=== PATIENT | female | born 1980 | race Caucasian/White ===

== ENCOUNTER 2019-08-23 15:13 | Emergency (ER) | payer BC, MEDICAID, SELFPAY ==
--- NOTE | ~2019-08-23 | XR_ITS ---
EXAMINATION: XR chest 2V DATE: 08/23/2019 15:51 INDICATION: Congestion. Anxiety. TECHNIQUE: Frontal and lateral views of the chest were obtained. COMPARISON: None. FINDINGS: The chest demonstrates clear lungs without pneumonia, pleural effusion, or pneumothorax. Th e heart size is normal. Surgical clips in the right upper quadrant are likely from cholecystectomy. IMPRESSION: 1. No acute cardiopulmonary disease. Reviewed, dictated and finalized at location A.
[2019-08-23 15:37] VITALS: BP 169/102; PULSE 95; RESP 16; TEMP 36.4; O2SAT 95
--- NOTE | 2019-08-23 16:07 | ED.ASTHMA ---
HPI - Asthma General Chief Complaint: Upper Respiratory Infection Stated Complaint: SOB Source: patient and family History of Present Illness HPI Narrative: patient presents with mild shortness of breath with no audible wheezing there is no cough there is some sinus congestion and drainage, with no fever chills does have a history of asthma that is well controlled with no acute exacerbations. complaint: shortness of breath Onset (ago): day(s) Severity: mild Context: none known Associated symptoms: none Treatments Prior to Arrival: inhaled bronchodilator Related Data Home Medications Medication Instructions Recorded Confirmed levothyroxine 50 mcg PO DAILY 08/23/19 08/23/19 Allergies Allergy/AdvReac Type Severity Reaction Status Date / Time No Known Allergies Allergy Unverified 09/09/11 11:08 Review of Systems Review of Systems: All systems reviewed & are unremarkable except as noted in HPI and below PMFSH Past Medical History Medical History Asthma Family History Family History Other Diabetes mellitus Hypertension Social History Social History Smoking end date: 05/30/00 Alcohol intake: never Exam Const: General: no acute distress and alert Orientation/consciousness: patient oriented x3 HENMT: Head: normal to inspection Eyes: Conjunctivae: conjunctivae normal Pupils: Equal, round and reactive pupils present Neck: Neck: normal visual inspection Chest: Chest palpation & inspection: normal inspection of the chest Resp: Effort & Inspection: normal respiratory effort Auscultation: clear to auscultation bilaterally Cardio: Rate: regular rate Rhythm: regular rhythm GI: Auscultation: normal bowel sounds : General: Yes no CVA tenderness Skin: General skin exam: normal color Lesions: no lesions Neuro: General: patient oriented x3 Extrem: General: normal to inspection Psych: Mental Status: mental status grossly normal Course Vital Signs Vital signs: Vital Signs Temperature 36.4 C 08/23/19 15:37 Pulse Rate 95 08/23/19 15:37 Respiratory Rate 16 08/23/19 15:37 Blood Pressure 169/102 H 08/23/19 15:37 Pulse Oximetry 95 08/23/19 15:37 Temperature 36.4 C 03/26/20 15:37 Pulse Rate 95 08/23/19 15:37 Respiratory Rate 16 08/23/19 15:37 Blood Pressure 169/102 H 08/23/19 15:37 Pulse Oximetry 95 08/23/19 15:37 Critical Care Time Critical Care Time Critical Care Time: No Discharge Plan Discharge Clinical Impression: Sinusitis Qualifiers: Sinusitis location: maxillary Chronicity: acute Recurrence: recurrent Qualified Code(s): J01.01 - Acute recurrent maxillary sinusitis Asthma Qualifiers: Asthma severity: mild Asthma persistence: intermittent Asthma complication type: unspecified Qualified Code(s): J45.20 - Mild intermittent asthma, uncomplicated Patient Disposition: Home, Self-Care Condition: Stable Instructions: Antibiotic Form, Sinusitis (ED) Additional Instructions: take medicine as prescribed and follow-up primary care physician if symptoms persist or worsen. Prescriptions: New prednisone 20 mg tablet 20 mg PO DAILY 5 Days Qty: 5 RF: 0 azithromycin [Zithromax Z-Jared] 250 mg tablet 250 mg PO DAILY 5 Days Qty: 5 RF: 0 No Action levothyroxine 50 mcg tablet 50 mcg PO DAILY RF: 0 Follow-up/Referrals: Domenica,RICH [place] [Primary Care Provider] - Time of Disposition: 16:13
[2019-08-23 16:40] VITALS: BP 129/80
== END 2019-08-23 16:41 | disposition home or self-care (01) ==
PROVIDERS: Emergency Provider Emergency Medicine; PCP Physician Assistant
DX: J01.01 Acute recurrent maxillary sinusitis (principal); J45.20 Mild intermittent asthma, uncomplicated; Z87.891 Personal history of nicotine dependence
CPT/HCPCS: 71046; 99283

== ENCOUNTER 2019-11-26 23:46 | Emergency (ER) | payer BC, MEDICAID, SELFPAY ==
[2019-11-27] VITALS: BP 144/101; PULSE 79; RESP 18; TEMP 36.2; O2SAT 100
[2019-11-27 00:04] VITALS: BP 144/101; PULSE 79; RESP 18; TEMP 36.2; O2SAT 100
--- NOTE | 2019-11-27 00:25 | ED.LOWEXIN ---
HPI - Extremity Injury (Lower) General Chief Complaint: Extremity Injury, Lower Stated Complaint: Left Leg Swollen Source: patient Mode of arrival: ambulatory Limitations: no limitations History of Present Illness HPI Narrative: Patient states that for the last several months she has been having problems with swelling in her lower extremities. Prior to COVID she was supposed to get a Doppler of her left lower extremity, however the test was postponed due to the virus. Patient states that she had been driving to the [employer] this past weekend noticed that her lower extremities were both swollen. This scared her have therefore she returned to to [place] so she could be close to home if there was something wrong with her. Patient states that she is very fearful that she has a blood clot in her lower extremities it sounds like from her description she did have a family member who had a massive heart attack related to a pulmonary emboli. Patient denies fevers nausea vomiting she is eating drinking urinating and defecating normally. She has no other complaints she has not had any injury Severity: mild Relieving factors: nothing Exacerbating factors: weight bearing and movement ( aching and lower extremities bilaterally) Related Data Home Medications Medication Instructions Recorded Confirmed hydrochlorothiazide 50 mg PO DAILY 08/23/19 11/27/19 levothyroxine 25 mcg PO DAILY 08/23/19 11/27/19 alprazolam 0.25 mg PO PRN 11/26/19 11/27/19 buspirone 10 mg PO BID 11/26/19 11/27/19 Allergies Allergy/AdvReac Type Severity Reaction Status Date / Time No Known Allergies Allergy Unverified 09/09/11 11:08 Review of Systems Review of Systems: All systems reviewed & are unremarkable except as noted in HPI and below Constitutional: Constitutional: Reports as per HPI, Denies no additional constitutional complaints, Denies chills, Denies fatigue, Denies fever(s) and Denies weakness Eyes: Eyes: Reports as per HPI, Denies no additional eye complaints, Denies change in vision and Denies photophobia ENT: Denies system reviewed and no additional complaints, except as documented, Denies as per HPI, Denies dysphagia, Denies vertigo, Denies dizziness, Denies epistaxis, Denies nasal congestion and Denies sore throat Cardiovascular: Cardiovascular: Denies as per HPI, Denies no additional cardiovascular complaints, Denies chest pain, Denies rapid heart rate, Denies radiating jaw, neck or arm pain and Denies slow heart rate Respiratory: Respiratory: Denies as per HPI, Denies no additional respiratory complaints, Denies chest congestion, Denies cough, Denies dyspnea and Denies wheezing Gastrointestinal: Gastrointestinal: Denies as per HPI, Denies no additional gastrointestinal complaints, Denies abdominal pain, Denies bloating, Denies constipation, Denies heartburn, Denies diarrhea, Denies nausea and Denies vomiting Genitourinary: Genitourinary: Denies no additional female genitourinary complaints, Denies as per HPI, Denies abnormal vaginal bleeding, Denies hematuria, Denies nocturia, Denies genital lesions, Denies dysuria, Denies pelvic pain, Denies flank pain, Denies urinary incontinence and Denies vaginal discharge Musculoskeletal: Musculoskeletal: Denies back pain, Reports myalgias, Reports joint swelling and Denies muscle cramps Neurologic: Reports system reviewed and no additional complaints, except as documented Psychiatric: Psychiatric: Reports no additional psychiatric complaints Endocrine: Endocrine: Reports no additional endocrine complaints Hematologic/Lymphatic: Hematologic/Lymphatic: Reports no additional hematologic/lymphatic complaints Allergic/Immunologic: Allergic/Immunologic: Reports no additional allergic/immunologic complaints [facility] Past Medical History Medical History (Updated 11/27/19 @ 01:17 by Ada Glez MD) Asthma Hiatal hernia Hypothyroid Surgical History Surgical History (Reviewed 11/27/19 @ 00:30 by Ada
[2019-11-27 00:35] LABS: Basophils Absolute Auto 0.06 K/mm3 (0.00-0.10); Basophils Percent Auto 0.6 % (0.0-1.0); Eosinophils Absolute Auto 0.37 K/mm3 (0.02-0.50); Eosinophils Percent Auto 3.8 % (1.0-6.0); Hemoglobin 12.7 g/dL (12.0-15.0); Immature Granulocyte Absolute 0.04 K/mm3 (0.00-0.00); Immature Granulocyte Percent A 0.4 % (0.0-0.0); Lymphocytes Absolute Auto 2.74 K/mm3 (1.10-4.50); Lymphocytes Percent Auto 28.2 % (18.0-42.0); Mean Corpuscular HGB Conc 33.4 g/dL (32.0-36.0); Mean Corpuscular Volume 86.8 fL (78.0-102.0); Monocytes Absolute Auto 0.76 K/mm3 (0.10-0.90); Monocytes Percent Auto 7.8 % (2.0-11.0); Neutrophils Absolute Auto 5.8 K/mm3 (1.7-7.2); Neutrophils Percent Auto 59.2 % (50.0-70.0); Platelet Count Result 330 K/mm3 (150-420); Red Blood Count 4.38 M/mm3 (4.20-5.40); Red Cell Distribution Width 12.7 % (11.6-14.4); White Blood Count 9.7 K/mm3 (4.8-10.8)
[2019-11-27 00:48] LABS: Alanine Aminotransferase 18 U/L (14-59); Albumin Level 3.1 g/dL (3.4-5.0); Alkaline Phosphatase 73 U/L (46-116); Anion Gap 12.6 mmol/L (7-16); Aspartate Amino Transferase 16 U/L (15-37); Bilirubin,Total 0.2 mg/dL (0.00-1.00); Blood Urea Nitrogen 10 mg/dL (7-18); Calcium 8.4 mg/dL (8.5-10.1); Carbon Dioxide 27 mmol/L (21-32); Chloride 103 mmol/L (98-108); Estimated CRCL calculation 96 ml/min; Estimated Glomerular Filt Rate > 60; Glucose 102 mg/dL (70-99); Osmolality Calculated 287 mOsm/kg (285-295); Potassium 3.6 mmol/L (3.5-5.1); Sodium 139 mmol/L (136-145); Total Protein 6.6 g/dL (6.4-8.2)
[2019-11-27 00:49] LABS: D Dimer 0.27 mg/L (0.19-0.50)
[2019-11-27] MEDS: FUROSEMIDE 20 MG TABLET PO (01:17)
[2019-11-27 01:19] VITALS: BP 150/92; PULSE 76; RESP 18; TEMP 36.7; O2SAT 96
== END 2019-11-27 01:21 | disposition home or self-care (01) ==
PROVIDERS: Emergency Provider Emergency Medicine; PCP Physician Assistant
DX: R60.1 Generalized edema (principal)
CPT/HCPCS: 36415; 80053; 85025; 85380; 99282; 99283; A9270

== ENCOUNTER 2020-02-22 11:24 | Emergency (ER) | payer BC, MEDICAID, SELFPAY ==
--- NOTE | ~2020-02-22 | CT_ITS ---
EXAMINATION: CT BRAIN W/O DATE: 02/22/2020 12:44 INDICATION: Numbness and tingling in fingers. TECHNIQUE: Computed tomography (CT) of the head was performed without intravenous contrast. The dose- length product was 529.67 mGy-cm. The mA was adjusted according to patient size. Iterative reconstruc tion technique was employed. COMPARISON: No prior studies for comparison. FINDINGS: Normal brain parenchymal volume for age. Normal angulo-white differentiation. No acute intrac ranial hemorrhage, infarction, mass or mass effect. No ventriculomegaly or midline shift. Midline sagittal images demonstrate a normal corpus callosum, c raniovertebral junction and sella turcica. Basilar cisterns are patent. Paranasal sinuses and mastoids are pneumatized. No depressed skull fractures. IMPRESSION: 1. No acute intracranial abnormality. Reviewed, dictated and finalized at location A.
--- NOTE | 2020-02-22 11:47 | ED_ITS ---
HPI - General Adult General Stated complaint: bad reaction to medication Time Seen by Provider: 02/22/20 11:47 Source: patient Mode of arrival: ambulatory Limitations: no limitations Related Data Home Medications Medication Instructions Recorded Confirmed hydrochlorothiazide 50 mg PO DAILY 08/23/19 11/27/19 levothyroxine 25 mcg PO DAILY 08/23/19 11/27/19 alprazolam 0.25 mg PO PRN 11/26/19 11/27/19 buspirone 10 mg PO BID 11/26/19 11/27/19 Allergies Allergy/AdvReac Type Severity Reaction Status Date / Time No Known Allergies Allergy Unverified 09/09/11 11:08 [facility] Past Medical History Medical History (Updated 11/28/19 @ 00:00 by Sai Phillips) Asthma Hiatal hernia Hypothyroid Social History Social History Smoking end date: 05/30/00 Alcohol intake: never Substance use: never Discharge Plan Discharge Prescriptions: No Action alprazolam 0.25 mg tablet 0.25 mg PO PRN RF: 0 buspirone 10 mg tablet 10 mg PO BID RF: 0 levothyroxine 50 mcg tablet 25 mcg PO DAILY RF: 0 hydrochlorothiazide 25 mg tablet 50 mg PO DAILY RF: 0
--- NOTE | 2020-02-22 11:58 | ED.HA ---
HPI - Headache General Chief Complaint: Unspecified Stated Complaint: bad reaction to medication Time Seen by Provider: 02/22/20 11:47 Source: patient Mode of arrival: ambulatory Limitations: no limitations History of Present Illness HPI Narrative: 39-year-old woman comes in today complaining of right-sided throbbing headache, and numbness and tingling sensation to right side of her head and neck. She states that 2 days ago she took her 1st dose of Effexor and approximately 2 hours later she began to vomit, tingle all over, feel dizziness, have warmness in her upper chest and headache. He states that most of the symptoms of resolved except those described above. She denies prior similar symptoms and has no history of significant head injury, seizure, fever, cough or cold symptoms, diarrhea, sick exposures. She states he has decreased hearing in her right ear And when she woke this morning her right eye was swollen and red. MD elicited complaint: headache Onset (ago): day(s) (2) Onset description: while at rest Location: right, temporal and parietal Severity: moderate Quality & Timing: throbbing Exacerbating factors: none Relieving factors: rest Context: occurred at rest Associated symptoms: nausea, vomiting and eye redness Related Data Home Medications Medication Instructions Recorded Confirmed levothyroxine 50 mcg PO DAILY 08/23/19 02/22/20 alprazolam 0.5 mg PO TID PRN 11/26/19 02/22/20 buspirone 10 mg PO TID 11/26/19 02/22/20 albuterol sulfate 2.5 mg INHALATION QID PRN 02/22/20 02/22/20 venlafaxine 75 mg PO DAILY 02/22/20 02/22/20 Allergies Allergy/AdvReac Type Severity Reaction Status Date / Time amlodipine Allergy Unknown Verified 02/22/20 12:08 lisinopril Allergy Unknown Verified 02/22/20 12:07 metoprolol Allergy Unknown Verified 02/22/20 12:08 Review of Systems Constitutional: Constitutional: Denies chills, Denies fever(s) and Denies weakness Eyes: Eyes: Denies change in vision and Denies photophobia ENT: Denies dysphagia, Denies nasal congestion and Denies sore throat Cardiovascular: Cardiovascular: Denies chest pain and Denies radiating jaw, neck or arm pain Respiratory: Respiratory: Denies cough, Denies dyspnea and Denies wheezing Gastrointestinal: Gastrointestinal: Denies abdominal pain, Denies diarrhea, Reports nausea and Reports vomiting Musculoskeletal: Musculoskeletal: Denies back pain, Denies arthralgias and Denies joint swelling Integumentary/Breasts: Skin/Breast: Denies pruritus, Denies erythema and Denies rash Neurologic: Denies vertigo, Reports dizziness and Denies syncope Hematologic/Lymphatic: Hematologic/Lymphatic: Reports easy bleeding and Reports easy bruising Allergic/Immunologic: Allergic/Immunologic: Reports lip swelling and Reports throat swelling PMFSH Past Medical History Medical History Asthma Hiatal hernia HTN (hypertension) Hypothyroid Surgical History Surgical History History of repair of hiatal hernia Social History Social History Smoking end date: 05/30/00 Alcohol intake: never Substance use: never Exam Const: General: alert Nutritional Appearance: obese Orientation/consciousness: patient oriented x3 Limitations: no limitations Other: Anxious HENMT: Head: normal to inspection Ears: external ears normal, TM's normal bilaterally and EAC's normal General nose exam: Normal nares present Face and sinus: normal facial exam Mouth: Yes moist mucous membranes abnormal Throat: posterior oropharynx normal Eyes: Conjunctivae: conjunctivae normal Pupils: Equal, round and reactive pupils present EOM: EOMs intact bilaterally Resp: Effort & Inspection: normal respiratory effort and not labored Auscultation: clear to auscultation bilaterally, no rales, no rhonchi and no wheezes Cardio:
--- NOTE | 2020-02-22 11:59 | ECG_ITS ---
Measurements Intervals [place] Rate: 73 P: -12 CA: 138 QRS: 65 QRSD: 96 T: 29 QT: 382 QTc: 421 Interpretive Statements SINUS RHYTHM CONSIDER INFERIOR INFARCT, AGE INDETERMINATE BASELINE ARTIFACT- II, III ABNORMAL ECG Electronically Signed On 02-22-2020 20:25:11 CDT by Glenn Luz D.O.
[2020-02-22 12:00] VITALS: BP 163/107; PULSE 82; RESP 15; TEMP 36.6; O2SAT 96
[2020-02-22 13:29] VITALS: BP 157/95; PULSE 80; RESP 14; O2SAT 100
== END 2020-02-22 13:30 | disposition home or self-care (01) ==
PROVIDERS: Emergency Provider Emergency Medicine; PCP Physician Assistant
DX: R51 Headache (principal); T50.905A Adverse effect of unspecified drugs, medicaments and biological substances, initial encounter
CPT/HCPCS: 70450; 93005; 99282; 99284

== ENCOUNTER 2020-05-03 12:54 | Emergency (ER) | payer BC, MEDICAID, SELFPAY ==
[2020-05-03 13:27] VITALS: BP 164/100; PULSE 100; RESP 20; TEMP 36.6; O2SAT 100
--- NOTE | 2020-05-03 13:56 | ED.GENADULT ---
HPI - General Adult General Chief complaint: Unspecified Stated complaint: pain in R ear and throat Source: patient Mode of arrival: ambulatory Limitations: no limitations History of Present Illness HPI narrative: this is a 39-year-old female presents with some dental discomfort S and gum inflammation surrounding the right upper and lower gum area, with right-sided submandibular gland swelling with radiation into her right ear with some some facial pressure, with some no nasal discharge no cough no shortness of breath currently no fever chills no nausea vomiting. Onset (ago): day(s) Location: face and mouth Radiation: neck Severity: moderate Severity scale (1-10): 8 Quality: aching Pain Consistency: constant Relieving factors: none Exacerbating factors: cold therapy, eating and movement Associated symptoms: denies other symptoms Related Data Home Medications Medication Instructions Recorded Confirmed levothyroxine 50 mcg PO DAILY 08/23/19 05/03/20 alprazolam 0.5 mg PO TID PRN 11/26/19 05/03/20 buspirone 10 mg PO TID 11/26/19 05/03/20 albuterol sulfate 2.5 mg INHALATION QID PRN 02/22/20 05/03/20 venlafaxine 75 mg PO DAILY 02/22/20 05/03/20 Allergies Allergy/AdvReac Type Severity Reaction Status Date / Time amlodipine Allergy Unknown Verified 05/03/20 13:35 lisinopril Allergy Unknown Verified 05/03/20 13:35 metoprolol Allergy Unknown Verified 05/03/20 13:35 Review of Systems Review of Systems: All systems reviewed & are unremarkable except as noted in HPI and below PMFSH Past Medical History Medical History (Updated 05/03/20 @ 14:00 by Prem Lezama MD) Asthma Hiatal hernia HTN (hypertension) Hypothyroid Surgical History Surgical History History of repair of hiatal hernia Family History Family History Other Diabetes mellitus Hypertension Social History Social History Smoking end date: 05/30/00 Alcohol intake: never Substance use: never Exam Const: General: cooperative, healthy appearing, comfortable, no acute distress, well developed and alert HENMT: Head: normal to inspection and other ( Dental pain with some right upper and lower molar gum irritation) Ears: hearing grossly normal bilaterally General nose exam: Normal external nose present Face and sinus: sinuses nontender and other ( right submandibular gland inflammation and tenderness) Mouth: Yes Normal oral and palatal mucosa present and Yes lip normal Teeth image: 1. gum inflammation and tenderness 2. gum inflammation and tenderness Eyes: General: appearance normal, both eyes and all related structures Neck: Neck: normal visual inspection, full ROM and no meningeal signs Chest: Chest palpation & inspection: normal inspection of the chest and normal palpation of entire chest wall Resp: Effort & Inspection: normal respiratory effort and able to speak in complete sentences Cardio: Jugular venous distension: no JVD Palpation: normal PMI Rate: regular rate Rhythm: regular rhythm GI: Inspection: normal to inspection Back/Spine/Pelvis: Back: no CVA tenderness Skin: General skin exam: normal color and no rashes or lesions noted Psych: Appearance: grossly normal and well kempt Course Course Emergency Course: reassessment patient in pain has improved with IM injection of Toradol Vital Signs Vital signs: Vital Signs Temperature 36.6 C 05/03/20 13:27 Pulse Rate 100 05/03/20 13:27 Respiratory Rate 20 05/03/20 13:27 Blood Pressure 164/100 H 05/03/20 13:27 Pulse Oximetry 100 05/03/20 13:27 Temperature 36.6 C 05/03/20 13:27 Pulse Rate 100 05/03/20 13:27 Respiratory Rate 20 05/03/20 13:27 Blood Pressure 164/100 H 05/03/20 13:27 Pulse Oximetry 100 05/03/20 13:27 Medical Decision Making Vital Signs V
[2020-05-03] MEDS: cefTRIAXone 1 GM VIAL IM (14:05)
[2020-05-03] MEDS: KETOROLAC (*BKC) 60 MG/2 ML VIAL IM (14:05)
[2020-05-03 14:24] VITALS: BP 138/88; PULSE 88; RESP 18; TEMP 36.6; O2SAT 99
== END 2020-05-03 14:26 | disposition home or self-care (01) ==
PROVIDERS: Emergency Provider Emergency Medicine; PCP Physician Assistant
DX: K04.7 Periapical abscess without sinus (principal)
CPT/HCPCS: 96372; 99283; 99284; J0696; J1885

== ENCOUNTER 2020-12-10 23:24 | Emergency (ER) | payer BC, SELFPAY ==
--- NOTE | ~2020-12-10 | CT_ITS ---
EXAMINATION: CT abdomen pelvis w con DATE: 12/11/2020 01:53 INDICATION: Left lower quadrant abdominal pain TECHNIQUE: Computed tomography (CT) of the abdomen and pelvis was performed with 100 cc Omnipaque 350 intravenous contrast. Automated exposure control and iterative reconstruction technique were employe d. Exam dose: 1493.53 mGy-cm total exam DLP. COMPARISON: None. FINDINGS: Normal heart size. No pericardial or pleural effusion. The lung bases are clear of infiltra te or consolidation. Small sliding hiatal hernia. Status post cholecystectomy. No bile duct or pancreatic duct dilatation. No hepatic, pancreatic, splenic, and adrenal or renal space-occupying mass lesion is evident. No urin parth tract calculus or hydroureteronephrosis. The urinary bladder is unremarkable. Normal caliber of the abdominal aorta. No intraperitoneal or retroperitoneal or pelvic mass lesion or adenopathy or ascites. Prominent up to 5.5 cm uterine fibroid versus large endometrial mass.. The adnexal areas are unremark able. Normal appendix. Minimal colonic diverticulosis; no CT evidence of diverticulitis. No bowel obstruction, bowel wall th ickening, pneumatosis or intraperitoneal free air. Included skeletal structures are unremarkable. IMPRESSION: Prominent up to 5.5 cm uterine fibroid versus endometrial mass. Small sliding hiatal hernia Status post cholecystectomy Minimal colonic diverticulosis Reviewed, dictated and finalized at [facility]. Reviewed, dictated and finalized at location [facility].
[2020-12-10 23:36] VITALS: BP 190/123; PULSE 92; RESP 18; TEMP 36.5; O2SAT 97
[2020-12-10 23:51] LABS: Basophils Absolute Auto 0.1 K/mm3 (0.0-0.1); Basophils Percent Auto 0.6 % (0.2-1.2); Eosinophils Absolute Auto 0.2 K/mm3 (0-0.3); Eosinophils Percent Auto 2.6 % (0-4.4); Hematocrit 37.1 % (37.0-47.0); Hemoglobin 11.6 g/dL (12.0-15.0); Immature Granulocyte Absolute 0.04 K/mm3 (0.00-0.031); Immature Granulocyte Percent A 0.4 % (0-0.5); Lymphocytes Absolute Auto 2.22 K/mm3 (0.9-3.2); Lymphocytes Percent Auto 23.8 % (18.3-44.2); Mean Corpuscular HGB Conc 31.3 g/dl (32-36); Mean Corpuscular Hemoglobin 26.8 pg (26-34); Mean Corpuscular Volume 85.7 fl (80-100); Mean Platelet Volume 10.3 fl (7.4-10.4); Monocytes Absolute Auto 0.8 K/mm3 (0.1-0.6); Neutrophils Percent Auto 64.6 % (45.5-73.1); Platelet Count Result 402 k/mm3 (150-375); Red Blood Count 4.33 M/mm3 (4.2-5.4); White Blood Count 9.3 K/mm3 (4.5-10.0)
[2020-12-10 23:59] LABS: Alanine Aminotransferase 17 U/L (4-35); Albumin Level 4.2 g/dL (3.5-5.1); Alkaline Phosphatase 100 U/L (38-126); Anion Gap 9 mmol/L (8-16); Aspartate Amino Transferase 25 U/L (14-36); Bilirubin,Total 0.3 mg/dL (0.2-1.3); Blood Urea Nitrogen 8 mg/dL (7-17); Calcium 9.1 mg/dL (8.4-10.2); Carbon Dioxide 26 mmol/L (22-30); Chloride 102 mmol/L (98-107); Estimated CRCL calculation 98 ml/min; Estimated Glomerular Filt Rate > 60; Glucose 97 mg/dL (65-105); Potassium 4.2 mmol/L (3.4-5.0); Sodium 137 mmol/L (137-145)
[2020-12-11 00:25] VITALS: BP 166/112; PULSE 82; RESP 18; O2SAT 94
--- NOTE | 2020-12-11 00:25 | ED.ABDPAIN ---
HPI - Abdominal Pain General Chief Complaint: Vaginal Bleeding Stated Complaint: heavy vag bleeding, left abd pain Time Seen by Provider: 12/11/20 00:24 Source: patient Mode of arrival: ambulatory Limitations: no limitations History of Present Illness HPI narrative: Patient is a 40-year-old female with a history of hypothyroidism, hypertension, uterine fibroids who presents for evaluation of heavy Vaginal bleeding and left lower quadrant abdominal pain. Patient states that she has been bleeding intermittently over the past 2 weeks. States she has a history of heavy bleeding secondary to uterine fibroids, of which patient had a failed ablation for. Patient follows with Dr. Dooley in [facility]. Patient states that she has had very heavy vaginal bleeding over the past 3 hours, states that she has soaked through 40 pads. I did confirm this number with the patient. Patient states she began to feel lightheaded and dizzy that she wanted to come into the emergency department to be evaluated. She reports a popping sensation as well as left lower quadrant abdominal pain with a gush of fluid. Patient denies any syncope. She denies any current dizziness. Patient states that her [employer] wants to perform a hysterectomy given the size of the fibroid. Related Data Home Medications Medication Instructions Recorded Confirmed levothyroxine 50 mcg PO DAILY 08/23/19 05/03/20 hydrochlorothiazide 25 mg tablet 25 mg PO DAILY 08/14/20 Allergies Allergy/AdvReac Type Severity Reaction Status Date / Time amlodipine Allergy Unknown Verified 08/14/20 14:02 lisinopril Allergy Unknown Verified 08/14/20 14:02 metoprolol Allergy Unknown Verified 08/14/20 14:02 Review of Systems Review of Systems: Narrative: CONSTITUTIONAL: Denies fever, chills, or sweats. EYES: Denies visual changes, redness, or discharge. ENT: Denies rhinorrhea, congestion, sore throat, or otalgia. CARDIOVASCULAR: Denies chest pain, palpitations, or edema. RESPIRATORY: Denies cough or dyspnea. GASTROINTESTINAL: Reports left-sided abdominal pain, denies nausea or vomiting GENITOURINARY: Denies dysuria or hematuria. Reports heavy vaginal bleeding SKIN: Denies rash or itching. MUSCULOSKELETAL: Denies back pain, joint pain, or myalgia. NEUROLOGIC: Denies headache, numbness, or weakness. [facility] Past Medical History Medical History Anxiety Asthma Encounter for long-term (current) use of other medications Fatigue Hiatal hernia HTN (hypertension) Hypersomnolence Hypothyroid Obesity Post-tubal ligation syndrome Sialadenitis referring back to the ear nose throat at [facility] that said that she had right salivary problems and recommended resection Surgical History Surgical History History of repair of hiatal hernia Family History Family History Father Diabetes mellitus Hypertension Depression Anxiety Heart problem Mother Alcohol abuse Asthma Cancer Hypertension Depression Anxiety Heart problem Thyroid disorder Sibling Cancer Hypertension Anxiety Depression Social History Social History Smoking status: Never smoker Smoking end date: 05/30/00 Alcohol intake: never Substance use: never Exam Narrative: Exam Narrative: GENERAL: Awake, alert, conversant HEAD: Normocephalic, atraumatic. EYES: 2+ PERRLA and EOMI. ENT: Nares clear, no rhinorrhea or epistaxis. Mucous membranes moist. NECK: Supple. CHEST: No respiratory distress, breathing even and non labored HEART: Regular rate, sinus rhythm : Labia majora and minora normal without lesions. Vagina with blood. No brisk bleeding. Two small blood clots. No cervical motion tenderness. No adnexal tenderness or fullness bilaterally. No mucoid discharge present. ABDOMEN:Non dist
[2020-12-11] MEDS: ONDANSETRON INJ 4 MG/2 ML VIAL IV PUSH (01:09)
[2020-12-11] MEDS: MORPHINE SULFATE (*CRX) 4 MG/ML INJ IV PUSH (01:10)
[2020-12-11] MEDS: TRANEXAMIC ACID 1,000MG/ISO100 1,000 MG/100 ML BAG 200 MG IVPB (01:13)
[2020-12-11 01:32] VITALS: BP 152/91; PULSE 73
[2020-12-11 01:35] VITALS: BP 137/105; PULSE 76
[2020-12-11 01:39] VITALS: BP 136/105; PULSE 79
[2020-12-11 02:53] VITALS: BP 114/82; PULSE 77; RESP 14; O2SAT 98
[2020-12-11 03:38] VITALS: BP 140/100; PULSE 75; RESP 14; O2SAT 100
== END 2020-12-11 03:38 | disposition home or self-care (01) ==
PROVIDERS: Emergency Provider Emergency Medicine; PCP Family Medicine
DX: D25.9 Leiomyoma of uterus, unspecified (principal); N93.8 Other specified abnormal uterine and vaginal bleeding; E03.9 Hypothyroidism, unspecified; I10 Essential (primary) hypertension; J45.909 Unspecified asthma, uncomplicated; E66.9 Obesity, unspecified; Z68.42 Body mass index [BMI] 45.0-49.9, adult
CPT/HCPCS: 36415; 74177; 80053; 81025; 84443; 85025; 86850; 86900; 86901; 96365; 96375; 99284; J2270; J2405; Q9967

== ENCOUNTER 2021-01-04 16:18 | Emergency (ER) | payer BC, SELFPAY ==
--- NOTE | ~2021-01-04 | XR_ITS ---
EXAMINATION: XR chest 1V portable DATE: 01/04/2021 18:00 INDICATION: Pleuritic right chest pain. COVID-19 positive. TECHNIQUE: A single frontal view of the chest was obtained. COMPARISON: Chest 2 views 08/23/2019, CT abdomen and pelvis 12/11/2020 FINDINGS: There are patchy airspace opacities in the mid and lower lung zones. No pleural effusion or pneumothorax. The heart size is normal. IMPRESSION: 1. Patchy airspace opacities in the mid and lower lung zones, consistent with COVID-19 pneumonia. Reviewed, dictated and finalized at location [facility]. IMPRESSION: 1. Patchy airspace opacities in the mid and lower lung zones, consistent with C OVID-19 pneumonia.
[2021-01-04 16:30] VITALS: BP 139/94; PULSE 108; RESP 24; TEMP 37.3; O2SAT 99
[2021-01-04] MEDS: SODIUM CHLORIDE 0.9% IV 1,000 ML 999 ML IV CONT (17:18)
[2021-01-04] MEDS: ONDANSETRON INJ 4 MG/2 ML VIAL IV PUSH ×2 (17:19→18:56)
[2021-01-04] MEDS: PANTOPRAZOLE SODIUM IV 40 MG VIAL IV PUSH (17:19)
[2021-01-04] MEDS: KETOROLAC (*BKC) 60 MG/2 ML VIAL IM (17:19)
[2021-01-04 17:32] LABS: Basophils Absolute Auto 0.01 K/mm3 (0.00-0.10); Basophils Percent Auto 0.3 % (0.0-1.0); Eosinophils Absolute Auto 0.01 K/mm3 (0.02-0.50); Eosinophils Percent Auto 0.3 % (1.0-6.0); Hemoglobin 12.1 g/dL (12.0-15.0); Immature Granulocyte Absolute 0.01 K/mm3 (0.00-0.00); Immature Granulocyte Percent A 0.3 % (0.0-0.0); Lymphocytes Absolute Auto 0.96 K/mm3 (1.10-4.50); Lymphocytes Percent Auto 24.2 % (18.0-42.0); Mean Corpuscular HGB Conc 31.8 g/dL (32.0-36.0); Mean Corpuscular Hemoglobin 26.4 pg (27.0-31.0); Monocytes Absolute Auto 0.21 K/mm3 (0.10-0.90); Monocytes Percent Auto 5.3 % (2.0-11.0); Neutrophils Absolute Auto 2.8 K/mm3 (1.7-7.2); Neutrophils Percent Auto 69.6 % (50.0-70.0); Platelet Count Result 220 K/mm3 (150-420); Red Blood Count 4.58 M/mm3 (4.20-5.40); Red Cell Distribution Width 12.7 % (11.6-14.4)
[2021-01-04 17:36] LABS: Add Urine Microscopic? YES; Appearance Urine Clear (Clear); Bilirubin Urine Negative (Negative); Blood Urine 3+ (Negative); Color Urine Light Yellow (Yellow); Glucose Urine UA Negative (Negative); Ketones Urine Negative (Negative); Leukocyte Esterase Ur Negative (Negative); Nitrate Urine Negative (Negative); Protein Urine Negative (Negative); Specific Grav Ur <= 1.005 (1.010-1.020); Urobilinogen Urine 0.2 mg/dL (0.2-1.0)
[2021-01-04 17:42] LABS: Bacteria Urine None seen /hpf; RBC Urine >75 /hpf (0-2); Squamous Epithelial Cell Urine None seen /hpf (Few); WBC Urine 0-3 /hpf (0-3)
[2021-01-04 17:46] LABS: Alanine Aminotransferase 27 U/L (14-59); Albumin Level 3.2 g/dL (3.4-5.0); Alkaline Phosphatase 68 U/L (46-116); Anion Gap 8 mmol/L (8-16); Aspartate Amino Transferase 26 U/L (15-37); Bilirubin,Total 0.1 mg/dL (0.00-1.00); Blood Urea Nitrogen 10 mg/dL (7-18); Calcium 8.4 mg/dL (8.5-10.1); Carbon Dioxide 29 mmol/L (21-32); Chloride 105 mmol/L (98-108); Estimated Glomerular Filt Rate > 60; Glucose 104 mg/dL (70-99); Osmolality Calculated 293 mOsm/kg (285-295); Potassium 3.9 mmol/L (3.5-5.1); Sodium 142 mmol/L (136-145); Total Protein 7.1 g/dL (6.4-8.2)
--- NOTE | 2021-01-04 18:32 | ED.URI ---
HPI - URI/Sore Throat General Chief Complaint: Upper Respiratory Infection Stated Complaint: +covid 9 days,sob Time Seen by Provider: 01/04/21 16:32 Source: patient and RN notes reviewed Mode of arrival: ambulatory Limitations: no limitations History of Present Illness MD elicited complaint: other (mild persistent loose stools, nausea and vomiting. also right upper chest pleuritic pain. no documented fever, no acute SOB) Onset (ago): day(s) (3. Covid+ for 9 days.) Consistency: progressively worsening Severity: mild Pain scale (0-10): 5 Able to tolerate fluids by mouth: Yes Exacerbating factors: nothing Relieving factors: nothing Associated symptoms: chest pain Related Data Home Medications Medication Instructions Recorded Confirmed albuterol 90 mcg INHALATION QID PRN 01/04/21 01/04/21 fluticasone propion-salmeterol 1 inh INHALATION DAILY PRN 01/04/21 01/04/21 [Advair Diskus] Allergies Allergy/AdvReac Type Severity Reaction Status Date / Time amlodipine Allergy Unknown Verified 08/14/20 14:02 lisinopril Allergy Unknown Verified 08/14/20 14:02 metoprolol Allergy Unknown Verified 08/14/20 14:02 Review of Systems Review of Systems: All systems reviewed & are unremarkable except as noted in HPI and below Constitutional: Constitutional: Reports as per HPI and Reports no additional constitutional complaints Eyes: Eyes: Reports as per HPI and Reports no additional eye complaints ENT: Reports system reviewed and no additional complaints, except as documented and Reports as per HPI Cardiovascular: Cardiovascular: Reports as per HPI and Reports no additional cardiovascular complaints Respiratory: Respiratory: Reports as per HPI and Reports no additional respiratory complaints Gastrointestinal: Gastrointestinal: Reports as per HPI and Reports no additional gastrointestinal complaints Genitourinary: Genitourinary: Reports no additional female genitourinary complaints and Reports as per HPI Musculoskeletal: Musculoskeletal: Reports no additional musculoskeletal complaints and Reports as per HPI Integumentary/Breasts: Skin/Breast: Reports system reviewed and no additional complaints, except as docu and Reports as per HPI Neurologic: Reports system reviewed and no additional complaints, except as documented and Reports as per HPI Psychiatric: Psychiatric: Reports no additional psychiatric complaints and Reports as per HPI Endocrine: Endocrine: Reports no additional endocrine complaints and Reports as per HPI Hematologic/Lymphatic: Hematologic/Lymphatic: Reports no additional hematologic/lymphatic complaints and Reports as per HPI Allergic/Immunologic: Allergic/Immunologic: Reports no additional allergic/immunologic complaints and Reports as per HPI PMFSH Past Medical History Medical History Anxiety Asthma Encounter for long-term (current) use of other medications Fatigue Hiatal hernia HTN (hypertension) Hypersomnolence Hypothyroid Obesity Post-tubal ligation syndrome Sialadenitis referring back to the ear nose throat at [place] that said that she had right salivary problems and recommended resection Surgical History Surgical History History of repair of hiatal hernia Family History Family History Father Diabetes mellitus Hypertension Depression Anxiety Heart problem Mother Alcohol abuse Asthma Cancer Hypertension Depression Anxiety Heart problem Thyroid disorder Sibling Cancer Hypertension Anxiety Depression Social History Social History Smoking status: Never smoker Smoking end date: 05/30/00 Alcohol intake: never Substance use: never Exam Const: General: healthy appearing, no acute distress and alert Nutritional Appearance: obese
[2021-01-04] MEDS: methylPREDNISolone SOD SUCC 125 MG VIAL IV PUSH (18:56)
[2021-01-04 19:00] VITALS: BP 135/95; PULSE 97; O2SAT 97
== END 2021-01-04 19:00 | disposition home or self-care (01) ==
PROVIDERS: Emergency Provider Emergency Medicine; PCP Physician Assistant
DX: U07.1 COVID-19 (principal); J12.82 Pneumonia due to coronavirus disease 2019; K52.89 Other specified noninfective gastroenteritis and colitis
CPT/HCPCS: 36415; 71045; 80053; 81001; 85025; 96365; 96372; 96375; 96376; 99283; 99284; C9113; J0696; J1885; J2405; J2930; J7030

== ENCOUNTER 2021-01-07 05:38 | Inpatient (IN) | payer BC, SELFPAY ==
[2021-01-07] VITALS (16 sets, daily range): BP systolic 116–156; BP diastolic 76–98; PULSE 83–110; RESP 18–24; TEMP 36.3–38.5; O2SAT 87–96; BMI 47.2
--- NOTE | ~2021-01-07 | CT_ITS ---
EXAMINATION: CTA chest PE protocol DATE: 01/07/2021 07:37 INDICATION: Dyspnea. Shortness of breath, productive cough with pink-tinged phlegm. Covid-positive. TECHNIQUE: Computed tomography angiography (CTA) of the chest was performed with 100 mL Omnipaque-350 intravenous contrast timed to evaluate the pulmonary arteries. Coronal maximum intensity projection 3D-reconstructions were created by the technologist. Automated exposure control and iterative reconst ruction technique were employed. Exam dose: 722.32 mGy-cm total exam DLP. COMPARISON: 01/04/2021 portable AP chest at 1809 hours FINDINGS: There is moderate enhancement of the pulmonary arteries and no evidence of pulmonary emboli sm. No thoracic aortic aneurysm or dissection. Heart size is within normal limits. No pericardial or pleu ral effusion. No hilar or mediastinal mass lesion or lymphadenopathy. Extensive patchy groundglass pulmonary infiltrates are scattered throughout both lungs, consistent wi th Covid 19 pneumonia. Small sliding hiatal hernia. Status post cholecystectomy. Included skeletal structures are unremarkable. IMPRESSION: Extensive bilateral patchy groundglass infiltrates consistent with Covid 19 pneumonia No evidence of pulmonary embolism Small sliding hiatal hernia Status post cholecystectomy Reviewed, dictated and finalized at [facility]. Reviewed, dictated and finalized at location [facility].
--- NOTE | ~2021-01-07 | CT_ITS ---
EXAMINATION: CTA chest PE protocol DATE: 01/09/2021 14:43 INDICATION: Hypoxia. TECHNIQUE: Computed tomography angiography (CTA) of the chest was performed with 100 mL Omnipaque-350 intravenous contrast timed to evaluate the pulmonary arteries. Coronal maximum intensity projection 3D-reconstructions were created by the technologist. Automated exposure control and iterative reconst ruction technique were employed. The dose-length product was 610.03 mGy-cm. COMPARISON: Chest CT 01/07/2021 FINDINGS: There are patchy groundglass opacities involving all lobes. There are subpleural bands in t he posterior lungs. No pleural effusion. The heart size is normal. No pericardial effusion. There is no pulmonary embolus. There is a small sliding hiatal hernia. There are likely changes of fundoplicat ion of the stomach. There are changes of cholecystectomy. The bones are unremarkable. IMPRESSION: 1. No pulmonary embolus. 2. Worsened diffuse lung disease, consistent with COVID-19 pneumonia. Reviewed, dictated and finalized at location [facility].
--- NOTE | ~2021-01-07 | XR_ITS ---
EXAMINATION: XR chest 1V portable DATE: 01/09/2021 09:14 INDICATION: COVID-19 pneumonia. TECHNIQUE: A single frontal view of the chest was obtained. COMPARISON: Chest single view 01/04/2021, chest CT 01/07/2021 FINDINGS: There are patchy airspace opacities in all lung zones bilaterally. No pleural effusion or p neumothorax. The heart size is normal. IMPRESSION: 1. Diffuse lung disease with worsening from 01/04/2021, consistent with COVID-19 pneumonia. Reviewed, dictated and finalized at location [facility].
--- NOTE | 2021-01-07 05:51 | ECG_ITS ---
Measurements Intervals [place] Rate: 109 P: 21 VA: 131 QRS: 24 QRSD: 93 T: 15 QT: 305 QTc: 411 Interpretive Statements SINUS TACHYCARDIA VOLTAGE CRITERIA FOR LVH CONSIDER INFERIOR INFARCT, AGE INDETERMINATE BASELINE ARTIFACT- I, II, III, AVR, AVL, AVF, V1-V5 ABNORMAL ECG Electronically Signed On 01-07-2021 7:45:23 CDT by Glenn Luz D.O.
--- NOTE | 2021-01-07 05:58 | ED.SOB ---
HPI - SOB/Dyspnea General Chief Complaint: Shortness of Breath/Dyspnea Stated Complaint: SOB Time Seen by Provider: 01/07/21 05:40 Source: patient and RN notes reviewed Mode of arrival: ambulatory Limitations: no limitations History of Present Illness MD elicited complaint: shortness of breath and cough Pertinent past history: pneumonia and other (covid +, post quarantine.) Onset (ago): day(s) (2) Context: recent illness Timing: constant Severity: moderate Exacerbating factors: lying flat Relieving factors: bronchodilators Known history of: other (covid pneumonia.) Associated symptoms: wheezing Treatment prior to arrival: bronchodilator Related Data Home Medications Medication Instructions Recorded Confirmed albuterol 90 mcg INHALATION QID PRN 01/04/21 01/07/21 Allergies Allergy/AdvReac Type Severity Reaction Status Date / Time amlodipine Allergy Unknown Verified 08/14/20 14:02 lisinopril Allergy Unknown Verified 08/14/20 14:02 metoprolol Allergy Unknown Verified 08/14/20 14:02 Review of Systems Review of Systems: All systems reviewed & are unremarkable except as noted in HPI and below Constitutional: Constitutional: Reports as per HPI and Reports no additional constitutional complaints Eyes: Eyes: Reports as per HPI and Reports no additional eye complaints ENT: Reports system reviewed and no additional complaints, except as documented and Reports as per HPI Cardiovascular: Cardiovascular: Reports as per HPI and Reports no additional cardiovascular complaints Respiratory: Respiratory: Reports as per HPI and Reports no additional respiratory complaints Gastrointestinal: Gastrointestinal: Reports as per HPI and Reports no additional gastrointestinal complaints Genitourinary: Genitourinary: Reports no additional female genitourinary complaints and Reports as per HPI Musculoskeletal: Musculoskeletal: Reports no additional musculoskeletal complaints and Reports as per HPI Integumentary/Breasts: Skin/Breast: Reports system reviewed and no additional complaints, except as docu and Reports as per HPI Neurologic: Reports system reviewed and no additional complaints, except as documented and Reports as per HPI Psychiatric: Psychiatric: Reports no additional psychiatric complaints and Reports as per HPI Endocrine: Endocrine: Reports no additional endocrine complaints and Reports as per HPI Hematologic/Lymphatic: Hematologic/Lymphatic: Reports no additional hematologic/lymphatic complaints and Reports as per HPI Allergic/Immunologic: Allergic/Immunologic: Reports no additional allergic/immunologic complaints and Reports as per HPI [facility] Past Medical History Medical History Anxiety Asthma Encounter for long-term (current) use of other medications Fatigue Hiatal hernia HTN (hypertension) Hypersomnolence Hypothyroid Obesity Post-tubal ligation syndrome Sialadenitis referring back to the ear nose throat at [place] that said that she had right salivary problems and recommended resection Surgical History Surgical History History of repair of hiatal hernia Family History Family History Father Diabetes mellitus Hypertension Depression Anxiety Heart problem Mother Alcohol abuse Asthma Cancer Hypertension Depression Anxiety Heart problem Thyroid disorder Sibling Cancer Hypertension Anxiety Depression Social History Social History Smoking status: Never smoker Second hand tobacco smoke exposure: Yes Smoking end date: 05/30/00 Alcohol intake: never Substance use: never Spiritual care concerns: No Exam Const: General: no acute distress Nutritional Appearance: obese Orientation/consciousness: patient oriented x3 Limitations: no limitations JAMES
[2021-01-07] MEDS: methylPREDNISolone SOD SUCC 125 MG VIAL IV PUSH ×3 (06:25→21:34)
[2021-01-07] MEDS: ONDANSETRON INJ 4 MG/2 ML VIAL IV PUSH ×2 (06:30→21:31)
[2021-01-07] MEDS: SODIUM CHLORIDE 0.9% IV 500 ML 999 ML IV CONT (06:30)
[2021-01-07] MEDS: IPRATROPIUM BR 0.02% INH SOLN 0.5 MG/2.5 ML VIAL INHALATION (06:35)
[2021-01-07] MEDS: ALBUTEROL SULFATE (*SP) INHALER 2 PUFF INHALATION ×4 (06:40→21:35)
[2021-01-07 06:41] LABS: SARS-CoV-2 Ag Positive (Negative)
[2021-01-07 06:42] LABS: Basophils Absolute Auto 0.01 K/mm3 (0.00-0.10); Basophils Percent Auto 0.1 % (0.0-1.0); Hematocrit 35.9 % (35.0-49.0); Hemoglobin 11.4 g/dL (12.0-15.0); Immature Granulocyte Absolute 0.05 K/mm3 (0.00-0.00); Immature Granulocyte Percent A 0.5 % (0.0-0.0); Lymphocytes Absolute Auto 1.69 K/mm3 (1.10-4.50); Lymphocytes Percent Auto 18.2 % (18.0-42.0); Mean Corpuscular HGB Conc 31.8 g/dL (32.0-36.0); Mean Corpuscular Hemoglobin 26.5 pg (27.0-31.0); Mean Corpuscular Volume 83.5 fL (78.0-102.0); Mean Platelet Volume 9.9 fl (9.2-11.8); Monocytes Absolute Auto 0.45 K/mm3 (0.10-0.90); Monocytes Percent Auto 4.8 % (2.0-11.0); Neutrophils Absolute Auto 7.1 K/mm3 (1.7-7.2); Neutrophils Percent Auto 76.4 % (50.0-70.0); Platelet Count Result 300 K/mm3 (150-420); White Blood Count 9.3 K/mm3 (4.8-10.8)
[2021-01-07] MEDS: ACETAMINOPHEN 325 MG TABLET 650 MG PO (06:47)
[2021-01-07 07:00] LABS: Alanine Aminotransferase 43 U/L (14-59); Albumin Level 3.1 g/dL (3.4-5.0); Alkaline Phosphatase 70 U/L (46-116); Anion Gap 13 mmol/L (8-16); Aspartate Amino Transferase 45 U/L (15-37); Bilirubin,Total 0.3 mg/dL (0.00-1.00); Blood Urea Nitrogen 7 mg/dL (7-18); Calcium 8.2 mg/dL (8.5-10.1); Carbon Dioxide 26 mmol/L (21-32); Chloride 104 mmol/L (98-108); Estimated CRCL calculation 97 ml/min; Estimated Glomerular Filt Rate > 60; Glucose 104 mg/dL (70-99); Lactic Acid Reflex 3.3 mmol/L (0.4-2.0); Osmolality Calculated 294 mOsm/kg (285-295); Potassium 3.6 mmol/L (3.5-5.1); Sodium 143 mmol/L (136-145); Total Protein 7.1 g/dL (6.4-8.2)
[2021-01-07 07:01] LABS: Troponin I < 4.0 ng/L (0.00-60.4)
[2021-01-07 07:05] LABS: SPREG INTERNAL CONTROL Positive; Serum Qual hCG Negative
--- NOTE | 2021-01-07 07:07 | PC.NURSE ---
Report to MARGARET Patton
[2021-01-07 07:10] LABS: Base Excess ABG 1.9 mmol/L (0-2); HCO3 ABG 24.4 mmol/L (23-29); Oxygen Content ABG 15.1 %vol (16.0-22.0); Oxygen Saturation ABG 91.2 % (95-97); Oxyhemoglobin 90.8 % (94-100); PCO2 ABG 31.4 mmHg (35-45); PO2 ABG 56.1 mmHg (80-90); Total Hemoglobin 11.8 g/dL (12.0-18.0); pH ABG 7.51 (7.35-7.45)
[2021-01-07 07:11] LABS: Device ROOM AIR; Modified Allen's Test Pass; Site Drawn LEFT RADIAL
--- NOTE | 2021-01-07 07:23 | PC.NURSE ---
pt to xray for chest ct
--- NOTE | 2021-01-07 07:35 | PC.NURSE ---
pt return to room, continues with pain from neck to legs. erp notified.
--- NOTE | 2021-01-07 09:11 | PC.NURSE ---
per dr culp, remove oxygen to eval sapo2 level. oxygen removed at this time
[2021-01-07] MEDS: ALBUTEROL SULFATE (*SP) INHALER 4 PUFF INHALATION (09:28)
[2021-01-07 09:36] LABS: Reflex Lactic Acid Yes or No Add Lactic
[2021-01-07] MEDS: SODIUM CHLORIDE 0.9% IV 1,000 ML 999 ML IV CONT (10:20)
[2021-01-07] MEDS: ENOXAPARIN 40 MG/0.4 ML SYRINGE SUB-Q (10:40)
--- NOTE | 2021-01-07 11:22 | PC.NURSE ---
1110 bedside report updated to bonnie gordon.
[2021-01-07 11:48] LABS: INR 0.9; Prothrombin Time 10.1 Seconds (9.50-12.10)
[2021-01-07] MEDS: REMDESIVIR 200 MG/NS 250 ML 200 MG/250 ML BAG 250 MG IVPB (12:06)
[2021-01-07] MEDS: HYDROcodone/acetaminophen (*CRX) 7.5-325 MG TABLET 1 TAB PO ×2 (12:15→21:31)
[2021-01-07] MEDS: BENZONATATE 100 MG CAPSULE 200 MG PO ×2 (13:12→17:22)
[2021-01-07 13:35] LABS: Lactic Acid Reflex 3.4 mmol/L (0.4-2.0)
--- NOTE | 2021-01-07 13:44 | ADMGEN ---
This patient, Shelli Olvera, was admitted to 2nd Floor Room 212-1. Patient/family oriented to hospital policies and general routines including ID bracelet, bed and alarms, visiting hours, pain management, procedures, bathroom and other care routines, personal items, smoking policy, room service/diet, and visiting hours. Information on how to activate the Rapid Response Team has been discussed. Patient/Family are encouraged to report perceived risks to care and to ask questions if they do not understand what they are told or what they should do. Reveiwed covid isolation policy, no visitors, loose cough noted, no acute distress at rest, oxygen oin at 2 L [place]
[2021-01-07] MEDS: SODIUM CHLORIDE 0.9% IV 1,000 ML 150 ML IV CONT (14:08)
--- NOTE | 2021-01-07 14:19 | PC.NURSE ---
Resting in bed, headache improved, denies needs, fluids and zithromax infusing
--- NOTE | 2021-01-07 14:40 | PM.IMHP ---
H&P: HPI History of Present Illness Date/Time: 01/07/21 14:40 this is a 40-year-old female that presented to urgent care with complaints of shortness of breath and hypoxia. Patient has a past medical history of anxiety, asthma, fatigue, hypertension, hypothyroidism and obesity. According to the patient on December 26 she was at a restaurant and someone sneezed on her afterwards she started experiencing congestion with a active cough with sputum being yellowish to greenish and a migraine headache. The following day she went and tested for Covid and was positive. According to patient she received dexamethasone and returned home. She noted that previous to admission 4 days approximately her condition worsened she did use her nebulizer while at. she noted this morning she took her pulse ox and her sats were in the 80s she attempted to do a breathing treatment and passed out before she can get to her nebulizer treatment. She noted that she woke up on the floor and banged her feet so that her boyfriend would hear her son was that the could not hear her. Patient's temperature 101.3, 103 heart rate, respiratory rate 20, 93% on 2 L nasal cannula, blood pressure 116/76 chest x-ray and CTA indicates Covid pneumonia CTA does not indicate PE, WBCs 9.3 hemoglobin 11.4, hematocrit 35.9, platelets 300, sodium 143, potassium 3.6, BUN 7, creatinine 0.7, glucose 104, lactic acid 3.3, AST 45, ALT 43, troponin is less than 4.0 ABG pH 7.51 CO2 31.4 O2 56.1, bicarb 24.4, EKG sinus tach with a heart rate of 109. Patient being admitted for Covid pneumonia. Patient continues to complain of shortness of breath which is better with her supplementary oxygen. The patient denies CP, palpitation, extremity numbness, lightheadedness, dizziness, constipation, diarrhea, chills, or fever. Chief Complaint: COPD hypoxia Review of Systems Review of Systems: A 14 organ system Review of Systems was performed and pertinent positives included in the HPI, otherwise remaining ROS is negative. [facility] Past Medical History Medical History Anxiety Asthma Encounter for long-term (current) use of other medications Fatigue Hiatal hernia HTN (hypertension) Hypersomnolence Hypothyroid Obesity Post-tubal ligation syndrome Sialadenitis referring back to the ear nose throat at [place] that said that she had right salivary problems and recommended resection Surgical History Surgical History History of repair of hiatal hernia Family History Family History Father Diabetes mellitus Hypertension Depression Anxiety Heart problem Mother Alcohol abuse Asthma Cancer Hypertension Depression Anxiety Heart problem Thyroid disorder Sibling Cancer Hypertension Anxiety Depression Social History Social History Smoking status: Never smoker Second hand tobacco smoke exposure: Yes Smoking end date: 05/30/00 Alcohol intake: never Substance use: never Spiritual care concerns: No Meds Home Medications and Allergies Home Medications Medication Instructions Recorded Confirmed Type albuterol 90 mcg INHALATION QID PRN 01/04/21 01/07/21 History albuterol sulfate 2 puff INHALATION QID #8.5 g 01/04/21 01/07/21 Rx azithromycin [Zithromax TRI-MIR] 500 mg PO DAILY 5 Days #5 tablet 01/04/21 01/07/21 Rx dextromethorphan-guaifenesin 1 tablet PO Q12H PRN #20 tablet 01/04/21 01/07/21 Rx [Mucinex DM] ibuprofen 800 mg PO TID PRN #20 tablet 01/04/21 01/07/21 Rx omeprazole magnesium [Prilosec OTC] 20 mg PO BID #20 tablet 01/04/21 01/07/21 Rx Allergies Allergy/AdvReac Type Severity Reaction Status Date / Time amlodipine Allergy Unknown Verified 08/14/20 14:02 lisinopril Allergy Unknown Verified 08/14/20 14:02 metoprolol Allergy Unknown Verified 07/28
--- NOTE | 2021-01-07 19:59 | PC.NURSE ---
Addendum entered by Yesy Razo RN 01/07/21 21:50: Patient resting in bed. Denied pain, nausea,emesis. No SOB observed. Call light and belongings within reach. Patient pleasant and talkative with no signs of distress. Original Note: Patient resting in bed. Alert and talkative. SOB increased with activity. Able to feed self. Call light and belongings within reach.
[2021-01-07] MEDS: guaiFENesin 12 HR 600 MG TABCR 1200 MG PO (21:34)
[2021-01-07] MEDS: BUDESONIDE/FORMOTEROL (*SP) 160-4.5 MCG 6 GM INH 2 PUFF INHALATION (21:34)
--- NOTE | 2021-01-08 00:52 | PC.NURSE ---
Patient states breathing better since IV medication and inhalers. Patient able to ambulate to bathroom independently. Continues with 02 at 2L with continuous pulse ox at 95%. Continues with telemetry, NSR.
[2021-01-08] MEDS: ALBUTEROL SULFATE (*SP) INHALER 2 PUFF INHALATION ×6 (01:24→21:42)
[2021-01-08] MEDS: SODIUM CHLORIDE 0.9% IV 1,000 ML 150 ML IV CONT ×4 (02:10→19:39)
[2021-01-08 04:00] VITALS: BP 147/90; PULSE 82; RESP 20; TEMP 36.1; O2SAT 90
[2021-01-08 05:07] VITALS: O2SAT 93
[2021-01-08] MEDS: methylPREDNISolone SOD SUCC 125 MG VIAL IV PUSH ×3 (05:30→21:42)
[2021-01-08] MEDS: ONDANSETRON INJ 4 MG/2 ML VIAL IV PUSH ×3 (05:44→20:36)
[2021-01-08 05:49] LABS: Hematocrit 32.9 % (35.0-49.0); Immature Granulocyte Absolute 0.03 K/mm3 (0.00-0.00); Immature Granulocyte Percent A 0.7 % (0.0-0.0); Lymphocytes Absolute Auto 0.48 K/mm3 (1.10-4.50); Lymphocytes Percent Auto 11.8 % (18.0-42.0); Mean Corpuscular HGB Conc 30.4 g/dL (32.0-36.0); Mean Corpuscular Hemoglobin 25.8 pg (27.0-31.0); Mean Platelet Volume 9.7 fl (9.2-11.8); Monocytes Absolute Auto 0.13 K/mm3 (0.10-0.90); Monocytes Percent Auto 3.2 % (2.0-11.0); Neutrophils Absolute Auto 3.4 K/mm3 (1.7-7.2); Neutrophils Percent Auto 84.3 % (50.0-70.0); Platelet Count Result 259 K/mm3 (150-420); Red Blood Count 3.87 M/mm3 (4.20-5.40); White Blood Count 4.1 K/mm3 (4.8-10.8)
[2021-01-08 06:01] LABS: INR 0.9; Prothrombin Time 9.8 Seconds (9.50-12.10)
[2021-01-08 06:11] LABS: Lactic Acid Reflex 0.7 mmol/L (0.4-2.0)
[2021-01-08 06:18] LABS: Alanine Aminotransferase 34 U/L (14-59); Albumin Level 2.9 g/dL (3.4-5.0); Alkaline Phosphatase 62 U/L (46-116); Anion Gap 11 mmol/L (8-16); Aspartate Amino Transferase 25 U/L (15-37); Bilirubin,Total 0.2 mg/dL (0.00-1.00); Blood Urea Nitrogen 9 mg/dL (7-18); Calcium 7.8 mg/dL (8.5-10.1); Carbon Dioxide 25 mmol/L (21-32); Chloride 106 mmol/L (98-108); Estimated CRCL calculation 141 ml/min; Estimated Glomerular Filt Rate > 60; Glucose 142 mg/dL (70-99); Osmolality Calculated 294 mOsm/kg (285-295); Potassium 4.2 mmol/L (3.5-5.1); Sodium 142 mmol/L (136-145); Total Protein 6.8 g/dL (6.4-8.2)
[2021-01-08] MEDS: DEXAMETHASONE 2 MG TABLET 6 MG PO (07:44)
[2021-01-08 07:46] VITALS: BP 156/90; PULSE 87; RESP 20; TEMP 36.1; O2SAT 92
[2021-01-08] MEDS: BENZONATATE 100 MG CAPSULE 200 MG PO ×3 (08:40→16:25)
[2021-01-08] MEDS: guaiFENesin 12 HR 600 MG TABCR 1200 MG PO ×2 (08:41→20:36)
[2021-01-08] MEDS: ENOXAPARIN 40 MG/0.4 ML SYRINGE SUB-Q (08:41)
[2021-01-08] MEDS: BUDESONIDE/FORMOTEROL (*SP) 160-4.5 MCG 6 GM INH 2 PUFF INHALATION ×2 (08:52→20:47)
--- NOTE | 2021-01-08 09:00 | PC.NURSE ---
Pt to bathroom per self and washed/bathed self s difficulty. Use of portable O2 tank when up, pt. kathy. well. Back to bed per self. Pt reports feeling a little better today.
--- NOTE | 2021-01-08 11:55 | PC.NURSE ---
Pt sitting up in bed, requests something for nausea at this time before lunch. VSS.
[2021-01-08 12:00] VITALS: BP 139/76; PULSE 83; RESP 20; TEMP 35.9; O2SAT 92
[2021-01-08] MEDS: REMDESIVIR 100 MG/NS 250 ML 100 MG/250 ML BAG 250 MG IVPB (12:29)
--- NOTE | 2021-01-08 13:48 | PC.NURSE ---
Pts tele d/c'd per order.
[2021-01-08 16:00] VITALS: BP 188/84; PULSE 84; RESP 18; TEMP 36.9; O2SAT 92
[2021-01-08] MEDS: ACETAMINOPHEN 325 MG TABLET 650 MG PO ×2 (16:25→16:34)
[2021-01-08 20:00] VITALS: BP 149/94; PULSE 86; RESP 20; TEMP 36.2; O2SAT 92
[2021-01-08] MEDS: LORazepam INJ (*CRX) 2 MG/ML VIAL 0.5 MG IV PUSH (20:36)
[2021-01-09] VITALS (15 sets, daily range): BP systolic 125–146; BP diastolic 81–98; PULSE 79–120; RESP 16–22; TEMP 35.7–36.6; O2SAT 84–98
[2021-01-09] MEDS: ALBUTEROL SULFATE (*SP) INHALER 2 PUFF INHALATION ×2 (00:22→08:19)
[2021-01-09] MEDS: ACETAMINOPHEN 325 MG TABLET 650 MG PO (04:11)
[2021-01-09] MEDS: ONDANSETRON INJ 4 MG/2 ML VIAL IV PUSH ×3 (04:16→19:32)
[2021-01-09 05:46] LABS: Alanine Aminotransferase 33 U/L (14-59); Estimated CRCL calculation 125 ml/min; Estimated Glomerular Filt Rate > 60; Prothrombin Time 10.6 Seconds (9.50-12.10)
[2021-01-09] MEDS: methylPREDNISolone SOD SUCC 125 MG VIAL IV PUSH (06:28)
[2021-01-09] MEDS: SODIUM CHLORIDE 0.9% IV 1,000 ML 150 ML IV CONT (06:34)
--- NOTE | 2021-01-09 07:00 | PC.NURSE ---
Completed bedside report. Patient had IV pump beeping - removed air from line, restarted pump. Patient requested and received ice in cup. Otherwise, patient was resting comfortably.
[2021-01-09] MEDS: BUDESONIDE/FORMOTEROL (*SP) 160-4.5 MCG 6 GM INH 2 PUFF INHALATION (08:43)
[2021-01-09] MEDS: DEXAMETHASONE 2 MG TABLET 6 MG PO (08:44)
--- NOTE | 2021-01-09 08:57 | HOMEO2EVAL ---
Evaluation was performed at [facility] Home Oxygen Evaluation RC: Home Oxygen (O2) Evaluation Start: 01/09/21 07:49 Freq: ONCE Status: Active Protocol: RPE Activity Type Activity Date Activity User E-Sign Co-Sign Detail Recorded Client Recorded Date Recorded By Document 01/09/21 08:05 SJBev [id number] 01/09/21 08:57 SJB Document 01/09/21 08:06 SJB [id number] 01/09/21 08:57 SJB Document 01/09/21 08:20 SJB [id number] 01/09/21 08:57 SJB 01/09/21 01/09/21 01/09/21 08:05 08:06 08:20 Home O2 Evaluation Test Phase Resting Resting Exercise Oxygen Delivery Room Air Nasal Cannula Nasal Cannula Oxygen Flow Rate (L/min) 1 6 Pulse Oximetry (90-100 %) 84 L 90 93 Pulse Rate (60-100 beats/min) 79 88 Activity Tolerance Fair Fair Rating of Perceived Dyspnea (PD) +1 Mild, +2 Mild, Some +2 Mild, Some Noticeable to Difficulty, Difficulty, the Participant Noticeable to Noticeable to but Not to an the Observer the Observer Observer Rate of Perceived Exertion (PE) 11 Fairly light 12 12 Ambulation Distance (feet) 175 Home Oxygen Evaluation Comments will begin walk Pt walked approx 175 ft. Oxygen was increased ( 2lpm= 85%, 3lpm = 87%, 4 lpm=88 %) to 6 lpm to maintain an Sp02 of 93%. PLB encouraged. Treatment Charges O2 Evaluation - Inpatient
[2021-01-09 09:07] LABS: Base Excess ABG 2.5 mmol/L (0-2); Oxygen Content ABG 14.1 %vol (16.0-22.0); Oxygen Saturation ABG 87.8 % (95-97); Oxyhemoglobin 87.4 % (94-100); PCO2 ABG 35.9 mmHg (35-45); PO2 ABG 44.6 mmHg (80-90); Total Hemoglobin 11.5 g/dL (12.0-18.0); pH ABG 7.48 (7.35-7.45)
[2021-01-09 09:09] LABS: Device ROOM AIR; Modified Allen's Test Pass; Site Drawn RIGHT RADIAL
[2021-01-09] MEDS: guaiFENesin 12 HR 600 MG TABCR 1200 MG PO ×2 (09:19→21:05)
[2021-01-09] MEDS: ENOXAPARIN 40 MG/0.4 ML SYRINGE SUB-Q (09:19)
[2021-01-09] MEDS: BENZONATATE 100 MG CAPSULE 200 MG PO ×3 (09:20→16:59)
--- NOTE | 2021-01-09 10:30 | PC.NURSE ---
Patient rounding found patient asking if she could have visitors. Explained current visitor policy, including age restriction. Patient stated her daughter was 20, and no longer lived in her home, so did not have exposure to covid. Since patient is no longer on isolation, daughter will be visiting. Patient was very happy about that.
--- NOTE | 2021-01-09 11:45 | PC.NURSE ---
Rounding on patient found patient in distress. Stated she needed some ativan for her anxiety. Patient denied any pain, but stated that she was anxious about her illness. Patient was reassured, and Ativan was given.
[2021-01-09] MEDS: LORazepam INJ (*CRX) 2 MG/ML VIAL 0.5 MG IV PUSH ×2 (12:10→19:32)
[2021-01-09] MEDS: REMDESIVIR 100 MG/NS 250 ML 100 MG/250 ML BAG 250 MG IVPB (12:29)
[2021-01-09] MEDS: IPRATROPIUM 0.5 MG/ALBUTEROL SULFATE 2.5 MG AMPUL.NEB 3 ML INHALATION ×2 (12:42→18:50)
--- NOTE | 2021-01-09 12:54 | P.PN_ITS ---
Progress Note: A&P Assessment and Plan (1) Pneumonia due to 2019 novel coronavirus: Code(s): U07.1 - COVID-19; J12.82 - Pneumonia due to coronavirus disease 2019 <CARLOS Khan - Last Filed: 01/09/21 13:07> Status: Acute <Diallo MariCARLOS Barreto - Last Filed: 01/09/21 13:07> Assessment and Plan: * Chest x-ray indicate Covid pneumonia repeat chest x-ray indicate worsening * Continue azithromycin, Rocephin, dexamethasone, and remdesivir * Blood culture pending * D-dimer negative, CTA negative for PE * Continue Tessalon Perles with guaifenesin and nebulizer treatment * Continue Ativan * CTA pending to rule out PE * Continue Lovenox <CARLOS Khan - Last Filed: 01/09/21 13:07> (2) Respiratory failure with hypoxia: Qualifiers: Chronicity: acute Qualified Code(s): J96.01 - Acute respiratory failure with hypoxia <CARLOS Khan - Last Filed: 01/09/21 13:07> Code(s): J96.91 - Respiratory failure, unspecified with hypoxia <CARLOS Khan - Last Filed: 01/09/21 13:07> Status: Acute <CARLOS Khan - Last Filed: 01/09/21 13:07> Assessment and Plan: * Secondary to Covid pneumonia and asthma will rule out PE * Refer to Covid pneumonia * Patient requires 6 L nasal cannula with ambulation with sats in the upper 80s and 90s <CARLOS Khan - Last Filed: 01/09/21 13:07> (3) Fatigue: Code(s): R53.83 - Other fatigue <CARLOS Khan - Last Filed: 01/09/21 13:07> Status: Acute <CARLOS Khan - Last Filed: 01/09/21 13:07> (4) Hypothyroid: Code(s): E03.9 - Hypothyroidism, unspecified <CARLOS Khan - Last Filed: 01/09/21 13:07> Status: Acute <CARLOS Khan - Last Filed: 01/09/21 13:07> Assessment and Plan: * No medication prescribed <CARLOS Khan - Last Filed: 01/09/21 13:07> (5) HTN (hypertension): Code(s): I10 - Essential (primary) hypertension <CARLOS Khan - Last Filed: 01/09/21 13:07> Status: Acute <CARLOS Khan - Last Filed: 01/09/21 13:07> Assessment and Plan: * Stable * No home medication * Vital signs as ordered * Will add medication if needed <CARLOS Khan - Last Filed: 01/09/21 13:07> (6) Asthma: Qualifiers: Asthma complication type: unspecified Asthma persistence: intermittent Asthma severity: mild Qualified Code(s): J45.20 - Mild intermittent asthma, uncomplicated <CARLOS Khan - Last Filed: 01/09/21 13:07> Code(s): J45.909 - Unspecified asthma, uncomplicated <CARLOS Khan - Last Filed: 01/09/21 13:07> Status: Acute <CARLOS Khan - Last Filed: 01/09/21 13:07> Assessment and Plan: * Continue inhalers * Continue oxygen supplement <CARLOS Khan - Last Filed: 01/09/21 13:07> Subjective Date/time seen: 01/09/21 12:54 patient's home O2 evaluation test completed, with ambulation patient desats to the upper 80s lower 90s with a heart rate in 120s. Repeat chest x-ray indicate worsening, ABG is also worse. Patient will remain for further treatment. Patient really emotional and upset today. According to patient she did not get the care required to improve overnight. Patient requested to be transferred to [facility]. I did call the [facility] and was informed that they did not have any beds available and to continue calling over the weekend to charge nurse at [phone]. I
--- NOTE | 2021-01-09 12:54 | WPDPN ---
Progress Note: A&P Assessment and Plan (1) Pneumonia due to 2019 novel coronavirus: Code(s): U07.1 - COVID-19; J12.82 - Pneumonia due to coronavirus disease 2019 <CARLOS Khan - Last Filed: 01/09/21 13:07> Status: Acute <CARLOS Khan - Last Filed: 01/09/21 13:07> Assessment and Plan: Chest x-ray indicate Covid pneumonia repeat chest x-ray indicate worsening Continue azithromycin, Rocephin, dexamethasone, and remdesivir Blood culture pending D-dimer negative, CTA negative for PE Continue Tessalon Perles with guaifenesin and nebulizer treatment Continue Ativan CTA pending to rule out PE Continue Lovenox <CARLOS Khan - Last Filed: 01/09/21 13:07> (2) Respiratory failure with hypoxia: Qualifiers: Chronicity: acute Qualified Code(s): J96.01 - Acute respiratory failure with hypoxia <CARLOS Khan - Last Filed: 01/09/21 13:07> Code(s): J96.91 - Respiratory failure, unspecified with hypoxia <CARLOS Khan - Last Filed: 01/09/21 13:07> Status: Acute <CARLOS Khan - Last Filed: 01/09/21 13:07> Assessment and Plan: Secondary to Covid pneumonia and asthma will rule out PE Refer to Covid pneumonia Patient requires 6 L nasal cannula with ambulation with sats in the upper 80s and 90s <CARLOS Khan - Last Filed: 01/09/21 13:07> (3) Fatigue: Code(s): R53.83 - Other fatigue <CARLOS Khan - Last Filed: 01/09/21 13:07> Status: Acute <CARLOS Khan - Last Filed: 01/09/21 13:07> (4) Hypothyroid: Code(s): E03.9 - Hypothyroidism, unspecified <CARLOS Khan - Last Filed: 01/09/21 13:07> Status: Acute <CARLOS Khan - Last Filed: 01/09/21 13:07> Assessment and Plan: No medication prescribed <CARLOS Khan - Last Filed: 01/09/21 13:07> (5) HTN (hypertension): Code(s): I10 - Essential (primary) hypertension <CARLOS Khan - Last Filed: 01/09/21 13:07> Status: Acute <CARLOS Khan - Last Filed: 01/09/21 13:07> Assessment and Plan: Stable No home medication Vital signs as ordered Will add medication if needed <CARLOS Khan - Last Filed: 01/09/21 13:07> (6) Asthma: Qualifiers: Asthma complication type: unspecified Asthma persistence: intermittent Asthma severity: mild Qualified Code(s): J45.20 - Mild intermittent asthma, uncomplicated <CARLOS Khan - Last Filed: 01/09/21 13:07> Code(s): J45.909 - Unspecified asthma, uncomplicated <CARLOS Khan - Last Filed: 01/09/21 13:07> Status: Acute <CARLOS Khan - Last Filed: 01/09/21 13:07> Assessment and Plan: Continue inhalers Continue oxygen supplement <CARLOS Khan - Last Filed: 01/09/21 13:07> Subjective Date/time seen: 01/09/21 12:54 patient's home O2 evaluation test completed, with ambulation patient desats to the upper 80s lower 90s with a heart rate in 120s. Repeat chest x-ray indicate worsening, ABG is also worse. Patient will remain for further treatment. Patient really emotional and upset today. According to patient she did not get the care required to improve overnight. Patient requested to be transferred to [facility]. [facility] and was informed that they did not have any beds available and to continue calling over the weekend to charge nurse at [phone]. Inform patient that there were no beds available and I will continue to place her at [facility]. I informed patient of our current situation. I informed her that we do not normally have patient with high acurity but due to increase need for hospitalization some of our critical patients are still here at our hospital instead of a higher lev
--- NOTE | 2021-01-09 14:15 | PC.NURSE ---
Patient rounding indicated that patient was experiencing nausea. Gave patient zofran, and made patient comfortable. Waiting for CT scan. No other needs at this time.
[2021-01-09] MEDS: HYDROcodone/acetaminophen (*CRX) 7.5-325 MG TABLET 1 TAB PO (19:31)
[2021-01-09] MEDS: ENOXAPARIN 60 MG/0.6 ML SYRINGE SUB-Q (21:05)
[2021-01-09] MEDS: traZODone HCL 50 MG TABLET PO (21:06)
[2021-01-10] VITALS (13 sets, daily range): BP systolic 121–148; BP diastolic 77–98; PULSE 80–125; RESP 18–20; TEMP 35.9–36.8; O2SAT 92–100
[2021-01-10] MEDS: IPRATROPIUM 0.5 MG/ALBUTEROL SULFATE 2.5 MG AMPUL.NEB 3 ML INHALATION ×4 (00:12→18:50)
[2021-01-10] MEDS: ONDANSETRON INJ 4 MG/2 ML VIAL IV PUSH ×3 (00:16→20:56)
--- NOTE | 2021-01-10 00:30 | PC.NURSE ---
Pt requested zofran for nausea p her neb tx. Pt kathy. nebulizer well, VSS. Back to bed per self, call andre at side.
[2021-01-10] MEDS: ACETAMINOPHEN 325 MG TABLET 650 MG PO (03:25)
--- NOTE | 2021-01-10 03:25 | PC.NURSE ---
Headache, tylenol given, congested cough continues at times, productive at times, states feeling some better, oxygen on at 3 L NC, up in room on own, denies any other needs at this time, fresh water given, call light in reach of patient
[2021-01-10 05:52] LABS: Hematocrit 30.8 % (35.0-49.0); Hemoglobin 9.9 g/dL (12.0-15.0); Mean Corpuscular HGB Conc 32.1 g/dL (32.0-36.0); Mean Corpuscular Hemoglobin 26.8 pg (27.0-31.0); Mean Corpuscular Volume 83.2 fL (78.0-102.0); Mean Platelet Volume 9.5 fl (9.2-11.8); Platelet Count Result 338 K/mm3 (150-420); Red Cell Distribution Width 12.6 % (11.6-14.4); White Blood Count 9.7 K/mm3 (4.8-10.8)
[2021-01-10 06:07] LABS: Prothrombin Time 10.9 Seconds (9.50-12.10)
[2021-01-10 06:17] LABS: Lactic Acid Reflex 3.4 mmol/L (0.4-2.0)
--- NOTE | 2021-01-10 06:18 | PC.NURSE ---
Rested well after tylenol, oxygen remains at 3 L NC, neb treatment completed, tolerated well
[2021-01-10 06:25] LABS: Alanine Aminotransferase 22 U/L (14-59); Albumin Level 2.5 g/dL (3.4-5.0); Alkaline Phosphatase 55 U/L (46-116); Anion Gap 9 mmol/L (8-16); Aspartate Amino Transferase 18 U/L (15-37); Bilirubin,Total 0.2 mg/dL (0.00-1.00); Blood Urea Nitrogen 6 mg/dL (7-18); Calcium 7.9 mg/dL (8.5-10.1); Carbon Dioxide 29 mmol/L (21-32); Chloride 106 mmol/L (98-108); Estimated CRCL calculation 105 ml/min; Estimated Glomerular Filt Rate > 60; Glucose 123 mg/dL (70-99); Osmolality Calculated 296 mOsm/kg (285-295); Potassium 2.9 mmol/L (3.5-5.1); Sodium 144 mmol/L (136-145)
--- NOTE | 2021-01-10 07:10 | PC.NURSE ---
Completed bedside report. Patient slept better last night, but still some wakefulness. Patient is currently sleeping comfortably.
[2021-01-10] MEDS: DEXAMETHASONE 2 MG TABLET 6 MG PO (08:26)
[2021-01-10] MEDS: POTASSIUM CHLORIDE 20 MEQ TABLET 40 MEQ PO ×2 (08:26→17:48)
--- NOTE | 2021-01-10 08:29 | WPDPN ---
Progress Note: A&P Assessment and Plan (1) Pneumonia due to 2019 novel coronavirus: Code(s): U07.1 - COVID-19; J12.82 - Pneumonia due to coronavirus disease 2019 Status: Acute Assessment and Plan: Chest x-ray indicate Covid pneumonia repeat chest x-ray indicate worsening Continue azithromycin, Rocephin, dexamethasone, and remdesivir Blood culture pending D-dimer negative, CTA negative for PE Continue Tessalon Perles with guaifenesin and nebulizer treatment Continue Ativan CTA does not indicate PE Continue Lovenox Lactic acid 0.7>3.4 (2) Respiratory failure with hypoxia: Qualifiers: Chronicity: acute Qualified Code(s): J96.01 - Acute respiratory failure with hypoxia Code(s): J96.91 - Respiratory failure, unspecified with hypoxia Status: Acute Assessment and Plan: Secondary to Covid pneumonia and asthma Refer to Covid pneumonia Patient requires 6 L nasal cannula with ambulation with sats in the upper 80s and 90s (3) Fatigue: Code(s): R53.83 - Other fatigue Status: Acute Assessment and Plan: Secondary to Covid pneumonia (4) Hypothyroid: Code(s): E03.9 - Hypothyroidism, unspecified Status: Acute Assessment and Plan: No medication prescribed (5) HTN (hypertension): Code(s): I10 - Essential (primary) hypertension Status: Acute Assessment and Plan: Stable No home medication Vital signs as ordered Will add medication if needed (6) Asthma: Qualifiers: Asthma complication type: unspecified Asthma persistence: intermittent Asthma severity: mild Qualified Code(s): J45.20 - Mild intermittent asthma, uncomplicated Code(s): J45.909 - Unspecified asthma, uncomplicated Status: Acute Assessment and Plan: Continue inhalers Continue oxygen supplement (7) Hypokalemia: Code(s): E87.6 - Hypokalemia Status: Acute Assessment and Plan: Potassium 2.9 Supplement given we will continue to monitor Subjective Date/time seen: 01/10/21 08:29 patient notes that she feels nauseated this morning she thinks that it might have been caused by the trazodone I will discontinue trazodone. She notes that she continues to have a productive cough with the sputum clear in color. Patient also instructed to prone herself up given instructions on proning. She has no other complaints other than being nauseous she notes that she had a good night sleep. She does continue to have shortness of breath with ambulation. The patient denies CP, palpitation, extremity numbness, lightheadedness, dizziness, constipation, diarrhea, chills, or fever. Review of Systems Review of Systems: A 14 organ system Review of Systems was performed and pertinent positives included in the HPI, otherwise remaining ROS is negative. Exam Narrative: GENERAL: This is a well-nourished, well-developed patient, in no apparent distress. HEAD: normocephalic, atraumatic. EYES: PERRL. Sclera clear/white. Vision is grossly intact. EARS: External ears normal, auditory canals clear and without drainage, TMs normal without perforation. Hearing grossly intact. NOSE: External nose normal with no obvious nasal discharge, nares without redness, no rhinorrhea. THROAT: Mucous membranes moist, posterior pharynx clear. NECK: Neck supple, non-tender without lymphadenopathy, masses or thyromegaly. CARDIOVASCULAR: Regular rate and rhythm without murmurs, gallops, or rubs. RESPIRATORY: Diminished GASTROINTESTINAL: Abdomen soft, non-tender, nondistended. Bowel sounds are active. No hepato-splenomegaly, or palpable masses. No guarding. SKIN: warm, intact with no suspicious lesions or rash, good texture and turgor. NEURO: awake, alert, and oriented to person, place and time. There were no obvious focal neurologic abnormalities. Steady gait EXTREMITIES: Normal range of motion. No edema. No calf tenderness. Negative Homans sign bilatera
[2021-01-10 08:32] LABS: Reflex Lactic Acid Yes or No No Lactic Reflex
[2021-01-10] MEDS: ENOXAPARIN 60 MG/0.6 ML SYRINGE SUB-Q ×2 (09:42→20:55)
[2021-01-10] MEDS: guaiFENesin 12 HR 600 MG TABCR 1200 MG PO ×2 (09:43→20:55)
[2021-01-10] MEDS: BENZONATATE 100 MG CAPSULE 200 MG PO ×3 (09:43→17:48)
[2021-01-10] MEDS: REMDESIVIR 100 MG/NS 250 ML 100 MG/250 ML BAG 250 MG IVPB (12:54)
--- NOTE | 2021-01-10 13:48 | PC.NURSE ---
Contacted [facility] to set up home 02 for patient. This nurse spoke with Virgie, patient information given to create intake. Facesheet, insurance info, order and 6 min walk documentation faxed to [phone].
[2021-01-10] MEDS: diphenhydrAMINE HCl INJ 50 MG/ML VIAL IV PUSH (20:55)
[2021-01-11] VITALS: BP 129/82; PULSE 116; RESP 20; TEMP 35.9; O2SAT 94
[2021-01-11] MEDS: IPRATROPIUM 0.5 MG/ALBUTEROL SULFATE 2.5 MG AMPUL.NEB 3 ML INHALATION ×2 (00:34→06:20)
[2021-01-11 00:50] VITALS: PULSE 116; O2SAT 94
[2021-01-11 04:00] VITALS: BP 142/76; PULSE 112; RESP 20; TEMP 36.2; O2SAT 94
[2021-01-11 06:09] LABS: Hematocrit 32.9 % (35.0-49.0); Hemoglobin 10.3 g/dL (12.0-15.0); Mean Corpuscular HGB Conc 31.3 g/dL (32.0-36.0); Mean Corpuscular Hemoglobin 25.9 pg (27.0-31.0); Mean Corpuscular Volume 82.9 fL (78.0-102.0); Mean Platelet Volume 9.9 fl (9.2-11.8); Platelet Count Result 391 K/mm3 (150-420); Red Blood Count 3.97 M/mm3 (4.20-5.40); Red Cell Distribution Width 12.6 % (11.6-14.4); White Blood Count 6.3 K/mm3 (4.8-10.8)
[2021-01-11 06:18] LABS: Prothrombin Time 10.9 Seconds (9.50-12.10)
[2021-01-11 06:24] LABS: Lactic Acid Reflex 2.5 mmol/L (0.4-2.0)
[2021-01-11 06:36] LABS: Alanine Aminotransferase 29 U/L (14-59); Albumin Level 2.6 g/dL (3.4-5.0); Alkaline Phosphatase 55 U/L (46-116); Anion Gap 9 mmol/L (8-16); Aspartate Amino Transferase 17 U/L (15-37); Bilirubin,Total 0.3 mg/dL (0.00-1.00); Blood Urea Nitrogen 7 mg/dL (7-18); Calcium 7.9 mg/dL (8.5-10.1); Carbon Dioxide 31 mmol/L (21-32); Chloride 105 mmol/L (98-108); Estimated CRCL calculation 105 ml/min; Estimated Glomerular Filt Rate > 60; Glucose 95 mg/dL (70-99); Magnesium 2.1 mg/dL (1.8-2.4); Osmolality Calculated 298 mOsm/kg (285-295); Potassium 2.8 mmol/L (3.5-5.1); Sodium 145 mmol/L (136-145); Total Protein 6.2 g/dL (6.4-8.2)
[2021-01-11 06:47] VITALS: PULSE 112; RESP 20
[2021-01-11] MEDS: DEXAMETHASONE 2 MG TABLET 6 MG PO (07:30)
[2021-01-11] MEDS: POTASSIUM CHLORIDE 20 MEQ TABLET 40 MEQ PO (07:30)
[2021-01-11] MEDS: ONDANSETRON INJ 4 MG/2 ML VIAL IV PUSH (07:40)
--- NOTE | 2021-01-11 07:54 | P.DS_ITS ---
DS: Admitting Diagnosis Admitting Diagnosis Covid pneumonia <CARLOS Khan - Last Filed: 01/11/21 08:00> DS: Discharge Diagnosis Discharge Diagnosis (1) Pneumonia due to 2019 novel coronavirus: Code(s): U07.1 - COVID-19; J12.82 - Pneumonia due to coronavirus disease 2019 <CARLOS Khan - Last Filed: 01/11/21 08:00> Status: Acute <CARLOS Khan - Last Filed: 01/11/21 08:00> Assessment and Plan: * Chest x-ray indicate Covid pneumonia repeat chest x-ray indicate worsening * Continue azithromycin, Rocephin, dexamethasone, and remdesivir * Blood culture pending preliminary no growth * D-dimer negative, CTA negative for PE * Continue Tessalon Perles with guaifenesin and nebulizer treatment * Continue Ativan * CTA does not indicate PE * Continue Lovenox * Lactic acid 0.7>3.4 Discharge Patient will discharge home with azithromycin cefdinir, dexamethasone, guaifenesin and Tessalon Perles She was also discharged home with supplementary oxygen 1 to 2 L at rest and 6 L with activities <CARLOS Khan - Last Filed: 01/11/21 08:00> (2) Respiratory failure with hypoxia: Qualifiers: Chronicity: acute Qualified Code(s): J96.01 - Acute respiratory failure with hypoxia <CARLOS Khan - Last Filed: 01/11/21 08:00> Code(s): J96.91 - Respiratory failure, unspecified with hypoxia <CARLOS Khan - Last Filed: 01/11/21 08:00> Status: Acute <CARLOS Khan - Last Filed: 01/11/21 08:00> Assessment and Plan: * Secondary to Covid pneumonia and asthma * Refer to Covid pneumonia * Patient requires 6 L nasal cannula with ambulation with sats in the upper 80s and 90s <CARLOS Khan - Last Filed: 01/11/21 08:00> (3) Fatigue: Code(s): R53.83 - Other fatigue <HILL Khan-C - Last Filed: 01/11/21 08:00> Status: Acute <Diallo Peres CARLOS - Last Filed: 01/11/21 08:00> Assessment and Plan: * Secondary to Covid pneumonia <Diallo Peres HILL-C - Last Filed: 01/11/21 08:00> (4) Hypothyroid: Code(s): E03.9 - Hypothyroidism, unspecified <Diallo Peres HILL-C - Last Filed: 01/11/21 08:00> Status: Acute <Diallo Peres HILL-C - Last Filed: 01/11/21 08:00> Assessment and Plan: * No medication prescribed <Diallo Peres CARLOS - Last Filed: 01/11/21 08:00> (5) HTN (hypertension): Code(s): I10 - Essential (primary) hypertension <Diallo Peres CARLOS - Last Filed: 01/11/21 08:00> Status: Acute <Diallo Peres PANKAJC - Last Filed: 01/11/21 08:00> Assessment and Plan: * Stable * No home medication * Vital signs as ordered * Will add medication if needed <Diallo Peres CARLOS - Last Filed: 01/11/21 08:00> (6) Asthma: Qualifiers: Asthma complication type: unspecified Asthma persistence: intermittent Asthma severity: mild Qualified Code(s): J45.20 - Mild intermittent asthma, uncomplicated <Diallo Peres CARLOS - Last Filed: 01/11/21 08:00> Code(s): J45.909 - Unspecified asthma, uncomplicated <Diallo Peres HILL-C - Last Filed: 01/11/21 08:00> Status: Acute <Diallo Peres CARLOS - Last Filed: 01/11/21 08:00> Assessment and Plan: * Continue inhalers * Continue oxygen supplement <Diallo Peres HILL-C - Last Filed: 01/11/21 08:00> (7) Hypokalemia: Code(s): E87.6 - Hypokalemia <HILL Khan-C - Last Filed: 01/11/21 08:
--- NOTE | 2021-01-11 07:54 | PM.DS ---
DS: Admitting Diagnosis Admitting Diagnosis Covid pneumonia <CARLOS Khan - Last Filed: 01/11/21 08:00> DS: Discharge Diagnosis Discharge Diagnosis (1) Pneumonia due to 2019 novel coronavirus: Code(s): U07.1 - COVID-19; J12.82 - Pneumonia due to coronavirus disease 2019 <CARLOS Khan - Last Filed: 01/11/21 08:00> Status: Acute <CARLOS Khan - Last Filed: 01/11/21 08:00> Assessment and Plan: Chest x-ray indicate Covid pneumonia repeat chest x-ray indicate worsening Continue azithromycin, Rocephin, dexamethasone, and remdesivir Blood culture pending preliminary no growth D-dimer negative, CTA negative for PE Continue Tessalon Perles with guaifenesin and nebulizer treatment Continue Ativan CTA does not indicate PE Continue Lovenox Lactic acid 0.7>3.4 Discharge Patient will discharge home with azithromycin cefdinir, dexamethasone, guaifenesin and Tessalon Perles She was also discharged home with supplementary oxygen 1 to 2 L at rest and 6 L with activities <CARLOS Khan - Last Filed: 01/11/21 08:00> (2) Respiratory failure with hypoxia: Qualifiers: Chronicity: acute Qualified Code(s): J96.01 - Acute respiratory failure with hypoxia <CARLOS Khan - Last Filed: 01/11/21 08:00> Code(s): J96.91 - Respiratory failure, unspecified with hypoxia <CARLOS Khan - Last Filed: 01/11/21 08:00> Status: Acute <CARLOS Khan - Last Filed: 01/11/21 08:00> Assessment and Plan: Secondary to Covid pneumonia and asthma Refer to Covid pneumonia Patient requires 6 L nasal cannula with ambulation with sats in the upper 80s and 90s <CARLOS Khan - Last Filed: 01/11/21 08:00> (3) Fatigue: Code(s): R53.83 - Other fatigue <CARLOS Khan - Last Filed: 01/11/21 08:00> Status: Acute <Diallo Peres HILL-C - Last Filed: 01/11/21 08:00> Assessment and Plan: Secondary to Covid pneumonia <Diallo Peres ANESTHESIOLOGY FELLOWTaylerC - Last Filed: 01/11/21 08:00> (4) Hypothyroid: Code(s): E03.9 - Hypothyroidism, unspecified <Diallo Peres ANESTHESIOLOGY FELLOW-C - Last Filed: 01/11/21 08:00> Status: Acute <Diallo Peres HILL-C - Last Filed: 01/11/21 08:00> Assessment and Plan: No medication prescribed <Diallo Peres ANESTHESIOLOGY FELLOWTaylerC - Last Filed: 01/11/21 08:00> (5) HTN (hypertension): Code(s): I10 - Essential (primary) hypertension <Diallo Peres HILL-C - Last Filed: 01/11/21 08:00> Status: Acute <Diallo Peres PANKAJC - Last Filed: 01/11/21 08:00> Assessment and Plan: Stable No home medication Vital signs as ordered Will add medication if needed <Diallo Peres ANESTHESIOLOGY FELLOW-C - Last Filed: 01/11/21 08:00> (6) Asthma: Qualifiers: Asthma complication type: unspecified Asthma persistence: intermittent Asthma severity: mild Qualified Code(s): J45.20 - Mild intermittent asthma, uncomplicated <Diallo Peres ANESTHESIOLOGY FELLOWTaylerC - Last Filed: 01/11/21 08:00> Code(s): J45.909 - Unspecified asthma, uncomplicated <Diallo Peres ANESTHESIOLOGY FELLOW-C - Last Filed: 01/11/21 08:00> Status: Acute <Diallo Peres ANESTHESIOLOGY FELLOW-Ousmane - Last Filed: 01/11/21 08:00> Assessment and Plan: Continue inhalers Continue oxygen supplement <Diallo Peres ANESTHESIOLOGY FELLOW-C - Last Filed: 01/11/21 08:00> (7) Hypokalemia: Code(s): E87.6 - Hypokalemia <Diallo GuerraLis Peres ANESTHESIOLOGY FELLOW-C - Last Filed: 01/11/21 08:00> Status: Acute <Diallo Peres, ANESTHESIOLOGY FELLOW-C - Last Filed: 01/11/21 08:00> Assessment and Plan: Potassium 2.9 currently at 2.8 patient given a total of potassium 60 mEq she will discharge home with 40 daily for 1 week and follow-up lab in 1 week with results going to her primary care physician Supplement given we will continue to monitor <Diallo Guerra
[2021-01-11 08:00] VITALS: BP 140/88; PULSE 100; RESP 18; TEMP 36.5; O2SAT 93
[2021-01-11 08:41] LABS: Reflex Lactic Acid Yes or No Add Lactic
[2021-01-11] MEDS: KCL 20 MEQ/SW 100 ML 100 ML 50 MEQ IVPB (08:58)
[2021-01-11 09:00] LABS: Lactic Acid 3.7 mmol/L (0.4-2.0)
[2021-01-11] MEDS: BENZONATATE 100 MG CAPSULE 200 MG PO ×2 (09:08→12:16)
--- NOTE | 2021-01-11 09:10 | PC.NURSE ---
Follow up call made to [facility] [employer] to check status of patient receiving home 02. This nurse spoke with Alberto at [facility], states he is sending patient information to the qualifications department. States that if there are any issues they will contact this nurse at [phone], and if there are no issues they will contact the patient directly to set up an ETA for delivery of 02.
[2021-01-11] MEDS: SODIUM CHLORIDE 0.9% IV 250 ML 100 ML IV CONT (10:22)
--- NOTE | 2021-01-11 10:55 | PC.NURSE ---
Deion from [facility] called with update on home 02 for patient. Confirmed room number and patients address. States they will be contacted patient with ETA.
--- NOTE | 2021-01-11 11:30 | PC.NURSE ---
[facility] contacted patient with ETA of [phone].
[2021-01-11 13:00] VITALS: O2SAT 93
--- NOTE | 2021-01-11 13:05 | PC.NURSE ---
All discharge instructions and education reviewed with patient,patient states understanding.IV site removed, tip intact. Dressing applied to site Portable 02 delivered from [employer]. Education done with patient on use of portable 02. Patient states understanding. [employer] worker states 02 has been delivered and set up at [facility]. All belongings gathered together and sent home with patient. Patient denies any questions at discharge. Patient accompanied to front door via wheelchair by this nurse. Left via private vehicle with daughter.
== END 2021-01-11 13:05 | disposition home or self-care (01) | DRG 177 ==
LOC: CHSED 10:11 → CHS2ND 10:20
PROVIDERS: Emergency Medicine; Nurse Practitioner; Admitting Provider Emergency Medicine; Emergency Provider Emergency Medicine; PCP Physician Assistant; Visit Provider Emergency Medicine
DX: U07.1 COVID-19 (principal); J12.82 Pneumonia due to coronavirus disease 2019; J96.01 Acute respiratory failure with hypoxia; J45.909 Unspecified asthma, uncomplicated; I10 Essential (primary) hypertension; K44.9 Diaphragmatic hernia without obstruction or gangrene; E03.9 Hypothyroidism, unspecified; E87.6 Hypokalemia; E66.9 Obesity, unspecified; R53.83 Other fatigue; F41.9 Anxiety disorder, unspecified; Z79.899 Other long term (current) drug therapy
CPT/HCPCS: 36415; 36600; 71045; 71275; 80053; 82565; 82805; 83605; 83735; 84460; 84484; 84703; 85025; 85027; 85610; 87040; 87426; 93005; 94618; 94640; 96361; 96374; 96375; 99285; A9270; C9803; J0456; J0696; J1200; J1650; J2060; J2405; J2930; J3480; J7030; J7040; J7050; J8540; Q9967

== ENCOUNTER 2021-01-19 18:55 | Emergency (ER) | payer BC, SELFPAY ==
[2021-01-19 19:10] VITALS: BP 151/99; PULSE 94; RESP 20; TEMP 36.4; O2SAT 98
--- NOTE | 2021-01-19 19:31 | ED.EAR ---
HPI - Ear Problem General Chief complaint: Ear Stated complaint: Redness, swollen and loss of hearing in right Ear Time Seen by Provider: 01/19/21 19:31 Source: patient and family Mode of arrival: ambulatory Limitations: no limitations History of Present Illness HPI Narrative: Shelli Olvera is a 40 yo female with a PMH of COPD, asthma, Covid last month for which left her hospitalized, is here with right ear pain and swelling. About 7 days ago her her ear started to swell in the canal and on the outside of ear Related Data Home Medications Medication Instructions Recorded Confirmed albuterol 90 mcg INHALATION QID PRN 01/04/21 01/19/21 Allergies Allergy/AdvReac Type Severity Reaction Status Date / Time amlodipine Allergy Unknown Verified 01/19/21 19:12 lisinopril Allergy Unknown Verified 01/19/21 19:12 metoprolol Allergy Unknown Verified 01/19/21 19:12 Review of Systems Review of Systems: CONSTITUTIONAL: Denies fever, chills, sweats. EYES: Denies visual changes, redness, discharge. ENT: Denies rhinorrhea, congestion, sore throat, right otalgia. CARDIOVASCULAR: Denies chest pain, palpitations, edema. RESPIRATORY: Denies dyspnea, wheezing, cough GASTROINTESTINAL: Denies abdominal pain, nausea, vomiting, diarrhea. GENITOURINARY: Denies dysuria, hematuria, abnormal discharge SKIN: Denies rash or itching. NEUROLOGIC: Denies numbness, or focal weakness. PSYCHIATRIC: Denies anxiety or depression. PMFSH Past Medical History Medical History Anxiety Asthma Encounter for long-term (current) use of other medications Fatigue Hiatal hernia HTN (hypertension) Hypersomnolence Hypokalemia Hypothyroid Obesity Post-tubal ligation syndrome Sialadenitis referring back to the ear nose throat at [facility] that said that she had right salivary problems and recommended resection Surgical History Surgical History History of repair of hiatal hernia Family History Family History Father Diabetes mellitus Hypertension Depression Anxiety Heart problem Mother Alcohol abuse Asthma Cancer Hypertension Depression Anxiety Heart problem Thyroid disorder Sibling Cancer Hypertension Anxiety Depression Social History Social History Smoking status: Never smoker Second hand tobacco smoke exposure: Yes Smoking end date: 05/30/00 Alcohol intake: never Substance use: never Spiritual care concerns: No Exam Narrative: GENERAL: This is a well-nourished, well-developed patient, in mild distress. HEAD: normocephalic, atraumatic. EYES: Sclera clear/white. Vision is grossly intact. EARS: External ears normal, auditory canals clearon L, on R erythema and tenderness of cnal- without drainage, Hearing grossly intact. NOSE: External nose normal without nasal discharge, nares without redness, no rhinorrhea. THROAT: Mucous membranes moist, NECK: Neck supple, non-tender CARDIOVASCULAR: Regular rate and rhythm without murmurs, gallops, or rubs. RESPIRATORY: Clear to auscultation. Breath sounds equal bilaterally. No wheezes, rales, or rhonchi. GASTROINTESTINAL: Abdomen soft, non-tender, SKIN: warm, intact with no suspicious lesions or rash, good texture and turgor. NEURO: awake, alert, and oriented to person, place and time. There were no obvious focal neurologic abnormalities. Steady gait EXTREMITIES: Normal range of motion. BACK: Nontender without deformity Course Course Emergency Course: Patient has right ear pain with swelling Started on polymyxin eardrops, stressed not to put anything else in the ear Discussed her gradual recovery from Covid-blood pressure has been elevated since she has had Covid she is under the care of Brett Vital Signs Vital signs: Vital Signs Temperature 97
[2021-01-19 19:32] VITALS: BP 151/99; PULSE 94; RESP 20; TEMP 36.4; O2SAT 98
--- NOTE | 2021-02-01 12:31 | WPDPN ---
Progress Note: A&P Assessment and Plan (1) COVID-19: Code(s): U07.1 - COVID-19 Status: Acute Assessment and Plan: Chest x-ray indicate Covid pneumonia repeat chest x-ray indicate worsening Continue azithromycin, Rocephin, dexamethasone, and remdesivir Blood culture pending D-dimer negative, CTA negative for PE Continue Tessalon Perles with guaifenesin and nebulizer treatment Continue Ativan CTA pending to rule out PE Continue Lovenox (2) Respiratory failure with hypoxia: Qualifiers: Chronicity: acute Qualified Code(s): J96.01 - Acute respiratory failure with hypoxia Code(s): J96.91 - Respiratory failure, unspecified with hypoxia Status: Acute Assessment and Plan: Secondary to Covid pneumonia and asthma will rule out PE Refer to Covid pneumonia Patient requires 6 L nasal cannula with ambulation with sats in the upper 80s and 90s (3) Fatigue: Code(s): R53.83 - Other fatigue Status: Acute (4) Hypothyroid: Code(s): E03.9 - Hypothyroidism, unspecified Status: Acute Assessment and Plan: No medication prescribed (5) HTN (hypertension): Code(s): I10 - Essential (primary) hypertension Status: Acute Assessment and Plan: Stable No home medication Vital signs as ordered Will add medication if needed (6) Asthma: Qualifiers: Asthma complication type: unspecified Asthma persistence: intermittent Asthma severity: mild Qualified Code(s): J45.20 - Mild intermittent asthma, uncomplicated Code(s): J45.909 - Unspecified asthma, uncomplicated Status: Acute Assessment and Plan: Continue inhalers Continue oxygen supplement Subjective Date/time seen: 01/08/2021 12:31 patient has little improvement continues to be short of breath. Night uneventful. The patient denies CP, palpitation, extremity numbness, lightheadedness, dizziness, constipation, diarrhea, chills, or fever. Review of Systems Review of Systems: A 14 organ system Review of Systems was performed and pertinent positives included in the HPI, otherwise remaining ROS is negative. Exam Narrative: GENERAL: This is a well-nourished, well-developed patient, in no apparent distress. HEAD: normocephalic, atraumatic. EYES: PERRL. Sclera clear/white. Vision is grossly intact. EARS: External ears normal, auditory canals clear and without drainage, TMs normal without perforation. Hearing grossly intact. NOSE: External nose normal with no obvious nasal discharge, nares without redness, no rhinorrhea. THROAT: Mucous membranes moist, posterior pharynx clear. NECK: Neck supple, non-tender without lymphadenopathy, masses or thyromegaly. CARDIOVASCULAR: Regular rate and rhythm without murmurs, gallops, or rubs. RESPIRATORY: Diminished GASTROINTESTINAL: Abdomen soft, non-tender, nondistended. Bowel sounds are active. No hepato-splenomegaly, or palpable masses. No guarding. SKIN: warm, intact with no suspicious lesions or rash, good texture and turgor. NEURO: awake, alert, and oriented to person, place and time. There were no obvious focal neurologic abnormalities. Steady gait EXTREMITIES: Normal range of motion. No edema. No calf tenderness. Negative Homans sign bilaterally. BACK: Nontender without deformity or crepitance. No flank tenderness.
== END 2021-01-19 19:49 | disposition home or self-care (01) ==
PROVIDERS: Emergency Provider Nurse Practitioner; PCP Physician Assistant
DX: H60.311 Diffuse otitis externa, right ear (principal); F41.9 Anxiety disorder, unspecified; I10 Essential (primary) hypertension; E66.9 Obesity, unspecified; Z68.41 Body mass index [BMI] 40.0-44.9, adult
CPT/HCPCS: 99213; G0463

== ENCOUNTER 2021-03-12 15:04 | Emergency (ER) | payer BC, SELFPAY ==
[2021-03-12] VITALS (10 sets, daily range): BP systolic 142–164; BP diastolic 93–120; PULSE 62–118; RESP 16–20; TEMP 36.6; O2SAT 99–100
[2021-03-12] MEDS: SODIUM CHLORIDE 0.9% IV 1,000 ML 999 ML IV CONT ×2 (15:47→20:34)
[2021-03-12] MEDS: KETOROLAC 30 MG/ML VIAL (*BKC) IV PUSH (15:47)
[2021-03-12 15:50] LABS: Basophils Absolute Auto 0.1 K/mm3 (0.0-0.1); Basophils Percent Auto 0.8 % (0.2-1.2); Eosinophils Absolute Auto 0.1 K/mm3 (0-0.3); Eosinophils Percent Auto 1.6 % (0-4.4); Hematocrit 33.3 % (37.0-47.0); Hemoglobin 10.4 g/dL (12.0-15.0); Immature Granulocyte Absolute 0.02 K/mm3 (0.00-0.031); Immature Granulocyte Percent A 0.2 % (0-0.5); Lymphocytes Absolute Auto 2.27 K/mm3 (0.9-3.2); Lymphocytes Percent Auto 25.8 % (18.3-44.2); Mean Corpuscular HGB Conc 31.2 g/dl (32-36); Mean Corpuscular Hemoglobin 26.5 pg (26-34); Mean Corpuscular Volume 84.9 fl (80-100); Mean Platelet Volume 10.3 fl (7.4-10.4); Monocytes Absolute Auto 0.7 K/mm3 (0.1-0.6); Monocytes Percent Auto 8.2 % (2.6-8.5); Neutrophils Absolute Auto 5.6 K/mm3 (1.3-6.7); Neutrophils Percent Auto 63.4 % (45.5-73.1); Platelet Count Result 452 k/mm3 (150-375); Red Blood Count 3.92 M/mm3 (4.2-5.4); Red Cell Distribution Width 17.6 % (11.5-14.5); White Blood Count 8.8 K/mm3 (4.5-10.0)
[2021-03-12 16:00] LABS: Prothrombin Time 12.8 Seconds (11.1-14.7)
[2021-03-12 16:01] LABS: Partial Thromboplastin Time 21.7 SECONDS (22.3-36.8)
[2021-03-12 16:03] LABS: Alanine Aminotransferase 32 U/L (4-35); Albumin Level 4.4 g/dL (3.5-5.1); Alkaline Phosphatase 67 U/L (38-126); Anion Gap 10 mmol/L (8-16); Aspartate Amino Transferase 35 U/L (14-36); Bilirubin,Total 0.5 mg/dL (0.2-1.3); Blood Urea Nitrogen 8 mg/dL (7-17); Calcium 9.1 mg/dL (8.4-10.2); Carbon Dioxide 23 mmol/L (22-30); Chloride 107 mmol/L (98-107); Estimated CRCL calculation 107 ml/min; Estimated Glomerular Filt Rate > 60; Glucose 101 mg/dL (65-110); Potassium 3.6 mmol/L (3.4-5.0); Sodium 140 mmol/L (137-145)
[2021-03-12] MEDS: MORPHINE SULFATE (*CRX) 4 MG/ML INJ IV PUSH (16:44)
--- NOTE | 2021-03-12 18:46 | PC.NURSE ---
Called lab to add on HCT/HGB
[2021-03-12 18:50] LABS: Add Urine Microscopic? YES; Appearance Urine Clear (Clear); Bilirubin Urine Negative (Negative); Blood Urine 3+ (Negative); Color Urine Yellow (Yellow); Glucose Urine UA Negative (Negative); Ketones Urine 1+ mg/dL (Negative); Leukocyte Esterase Ur Negative LEU/UL (Negative); Mucus Urine Heavy /lpf; Nitrate Urine Negative (Negative); Protein Urine 2+ mg/dL (Negative); RBC Urine >75 /hpf (0-2); Specific Grav Ur 1.024 (1.001-1.035); Urobilinogen Urine Negative mg/dL (<2.0); WBC Urine 0-3 /hpf
--- NOTE | 2021-03-12 18:59 | ED.FEMALEGU ---
HPI - Female Genitourinary General Chief complaint: Vaginal Bleeding Stated complaint: vaginal bleeding Time Seen by Provider: 03/12/21 15:31 History of Present Illness HPI Narrative: Patient is a 40-year-old female who presents ER with vaginal bleeding. Patient has known fibroid and has had vaginal bleeding issues for several months. She has been treated with TXA and norethindrone by her stenographic court reporter Dr. Santiago at [facility]. Patient started having heavy bleeding while sitting in a chair. She started passing large clots. She contacted her on-call stenographic court reporter and was going to [facility] to be evaluated when her bleeding increased and while she was on the phone they told her to go to the closest facility. Patient has had a little dizziness. No loss of consciousness. No history of blood transfusion. Denies fevers or chills or sweats. No recent vaginal penetration that could have initiated the bleeding. Related Data Home Medications Medication Instructions Recorded Confirmed albuterol 90 mcg INHALATION QID PRN 01/04/21 01/19/21 Allergies Allergy/AdvReac Type Severity Reaction Status Date / Time amlodipine Allergy Unknown Verified 01/19/21 19:12 lisinopril Allergy Unknown Verified 01/19/21 19:12 metoprolol Allergy Unknown Verified 01/19/21 19:12 Review of Systems Review of Systems: All systems reviewed & are unremarkable except as noted in HPI and below Constitutional: Constitutional: Denies chills and Denies fatigue Cardiovascular: Cardiovascular: Denies chest pain, Denies rapid heart rate and Denies radiating jaw, neck or arm pain Gastrointestinal: Gastrointestinal: Reports abdominal pain, Denies diarrhea, Denies nausea and Denies vomiting Genitourinary: Genitourinary: Reports abnormal vaginal bleeding, Denies nocturia, Denies dysuria, Denies flank pain and Denies vaginal discharge Neurologic: Reports dizziness and Denies syncope PMF Past Medical History Medical History Anxiety Asthma Encounter for long-term (current) use of other medications Fatigue Hiatal hernia HTN (hypertension) Hypersomnolence Hypokalemia Hypothyroid Obesity Post-tubal ligation syndrome Sialadenitis referring back to the ear nose throat at [place] that said that she had right salivary problems and recommended resection Surgical History Surgical History History of repair of hiatal hernia Family History Family History Father Diabetes mellitus Hypertension Depression Anxiety Heart problem Mother Alcohol abuse Asthma Cancer Hypertension Depression Anxiety Heart problem Thyroid disorder Sibling Cancer Hypertension Anxiety Depression Social History Social History Smoking status: Never smoker Second hand tobacco smoke exposure: Yes Smoking end date: 05/30/00 Alcohol intake: never Substance use: never Spiritual care concerns: No Exam Narrative: GENERAL: Well-appearing, well-nourished, and in no acute distress. HEAD: Normocephalic, atraumatic. CHEST: Clear to auscultation. No respiratory distress. HEART: Regular rate and rhythm. Normal peripheral pulses. ABDOMEN: Soft, nontender, nondistended. : Normal external genitalia, moderate clot burden that was evacuated. After exploring the vaginal vault there is trace oozing of bright red blood. Anterior aspect of the cervix can be visualized but is difficult to see the entirety of the cervix due to redundant tissue. EXTREMITIES: Normal range of motion. No edema. SKIN: Warm, dry, no rash. NEURO: Alert and oriented x3. PSYCH: Normal mood and affect. Course Course Emergency Course: Discussed case with on-call gynecology at [facility]. They recommend rechecking an H&H and as long as patient's hemoglobin is not below 7 and requiring transfusion th
[2021-03-12] MEDS: TRANEXAMIC ACID 1,000MG/ISO100 1,000 MG/100 ML BAG 200 MG IVPB (20:34)
== END 2021-03-12 21:22 | disposition home or self-care (01) ==
PROVIDERS: Emergency Provider Emergency Medicine; PCP Physician Assistant
DX: N93.9 Abnormal uterine and vaginal bleeding, unspecified (principal); J45.909 Unspecified asthma, uncomplicated; Z77.22 Contact with and (suspected) exposure to environmental tobacco smoke (acute) (chronic); E66.9 Obesity, unspecified; Z68.41 Body mass index [BMI] 40.0-44.9, adult; I10 Essential (primary) hypertension; E03.9 Hypothyroidism, unspecified
CPT/HCPCS: 36415; 80053; 81001; 81025; 85014; 85018; 85025; 85610; 85730; 86850; 86900; 86901; 96361; 96365; 96375; 99284; J1885; J2270; J7030

== ENCOUNTER 2021-06-05 15:33 | Outpatient (CLI) | payer BC, SELFPAY ==
--- NOTE | ~2021-06-05 | XR_ITS ---
EXAMINATION: XR chest 2V DATE: 06/05/2021 15:52 INDICATION: Shortness of breath. Wheezing. Right chest pressure. TECHNIQUE: Frontal and lateral views of the chest were obtained. COMPARISON: Chest single view 01/09/2021, chest CT 01/09/2021 FINDINGS: The chest demonstrates clear lungs without pneumonia, pleural effusion, or pneumothorax. Th e heart size is normal. There are surgical clips in right neck. There are surgical clips in the abdom en. IMPRESSION: 1. No acute cardiopulmonary disease. Reviewed, dictated and finalized at location A. [employer] [employer]
== END 2021-06-05 15:34 | disposition home or self-care (01) ==
LOC: CHSIMG 15:36
PROVIDERS: PCP Physician Assistant; Visit Provider Physician Assistant
DX: J20.9 Acute bronchitis, unspecified (principal)
CPT/HCPCS: 71046

== ENCOUNTER 2021-06-08 16:48 | Emergency (ER) | payer BC, SELFPAY ==
[2021-06-08 17:05] VITALS: BP 173/124; PULSE 86; RESP 20; TEMP 36.3; O2SAT 94
--- NOTE | 2021-06-08 17:10 | ED.URI ---
HPI - URI/Sore Throat General Chief Complaint: Upper Respiratory Infection Stated Complaint: cough,congestion,pain in ear-after surgery Source: patient and RN notes reviewed Mode of arrival: ambulatory Limitations: no limitations History of Present Illness HPI Narrative: patient states that she has been having a chronic cough for about 3 weeks since she was intubated for surgery when she had a hysterectomy. She called her primary care and had a chest x-ray done last Tuesday that was reported as normal. She has not been tested for COVID. She says she had COVID last year. She says that her cough is worse when she lays down. She has tried [id number] Mucinex. MD elicited complaint: cough and nasal congestion Onset (ago): week(s) (3) Consistency: intermittent Severity: moderate Able to tolerate fluids by mouth: Yes Exacerbating factors: supine positioning Relieving factors: nothing Associated symptoms: ear pain and other Treatments prior to arrival: cold medicine Related Data Home Medications Medication Instructions Recorded Confirmed albuterol 90 mcg INHALATION QID PRN 01/04/21 01/19/21 Allergies Allergy/AdvReac Type Severity Reaction Status Date / Time amlodipine Allergy Unknown Verified 01/19/21 19:12 lisinopril Allergy Unknown Verified 01/19/21 19:12 metoprolol Allergy Unknown Verified 01/19/21 19:12 Review of Systems Review of Systems: All systems reviewed & are unremarkable except as noted in HPI and below PMFSH Past Medical History Medical History (Updated 06/08/21 @ 19:03 by Sabas Bravo MD) Anxiety Asthma Encounter for long-term (current) use of other medications Fatigue Hiatal hernia HTN (hypertension) Hypersomnolence Hypokalemia Hypothyroid Obesity Post-tubal ligation syndrome Sialadenitis referring back to the ear nose throat at [place] that said that she had right salivary problems and recommended resection Surgical History Surgical History (Updated 06/08/21 @ 17:38 by Sabas Bravo MD) H/O: hysterectomy History of repair of hiatal hernia Family History Family History Father Diabetes mellitus Hypertension Depression Anxiety Heart problem Mother Alcohol abuse Asthma Cancer Hypertension Depression Anxiety Heart problem Thyroid disorder Sibling Cancer Hypertension Anxiety Depression Social History Social History Smoking status: Never smoker Second hand tobacco smoke exposure: Yes Smoking end date: 05/30/00 Alcohol intake: never Substance use: never Spiritual care concerns: No Exam Const: General: healthy appearing, no acute distress and alert Nutritional Appearance: well nourished and obese morbidly obese Orientation/consciousness: patient oriented x3 Other: female nurse in room during examination. HENMT: Ears: external ears normal and TM abnormal ( Other ear normal) scarred on the right General nose exam: Normal external nose present Face and sinus: normal facial exam Mouth: Yes Normal oral and palatal mucosa present and Yes moist mucous membranes Throat: posterior oropharynx normal and uvula midline Eyes: Conjunctivae: conjunctivae normal Pupils: Equal, round and reactive pupils present EOM: EOMs intact bilaterally Neck: Neck: normal visual inspection Resp: Effort & Inspection: normal respiratory effort Auscultation: clear to auscultation bilaterally Cardio: Rate: regular rate Rhythm: regular rhythm GI: GI Palp: Yes Soft to palpation and No Tenderness to palpation present (GI) Auscultation: normal bowel sounds Back/Spine/Pelvis: Cervical Spine: cervical ROM normal Thoracic/Lumbar Spine: thoraco-lumbar ROM normal Skin: General skin exam: normal color Rashes: no rashes Neuro: General: patient oriented x3, moves all extremities, no meningeal signs, no focal motor deficits and CN's II-XI intact bilaterally
--- NOTE | 2021-06-08 17:32 | PC.NURSE ---
Assisted Dr. Bravo with exam.
--- NOTE | 2021-06-08 17:46 | PC.NURSE ---
Covid swab obtained and sent to lab.
[2021-06-08 18:26] LABS: SARS-CoV-2 RNA PCR Negative (Negative)
[2021-06-08] MEDS: BENZONATATE 100 MG CAPSULE 200 MG PO (19:12)
== END 2021-06-08 19:15 | disposition home or self-care (01) ==
PROVIDERS: Emergency Provider Emergency Medicine; PCP Physician Assistant
DX: J06.9 Acute upper respiratory infection, unspecified (principal); Z20.822 Contact with and (suspected) exposure to COVID-19
CPT/HCPCS: 99282; 99283; A9270; C9803; U0003; U0005

== ENCOUNTER 2021-09-22 15:33 | Outpatient (CLI) | payer BC, SELFPAY ==
[2021-09-22 16:04] LABS: Hematocrit 42.9 % (35.0-49.0); Hemoglobin 13.5 g/dL (12.0-15.0); Mean Corpuscular HGB Conc 31.5 g/dL (32.0-36.0); Mean Corpuscular Hemoglobin 27.8 pg (27.0-31.0); Mean Corpuscular Volume 88.3 fL (78.0-102.0); Mean Platelet Volume 10.5 fl (9.2-11.8); Platelet Count Result 340 K/mm3 (150-420); Red Blood Count 4.86 M/mm3 (4.20-5.40); Red Cell Distribution Width 13.2 % (11.6-14.4); White Blood Count 9.5 K/mm3 (4.8-10.8)
[2021-09-22 16:24] LABS: Alanine Aminotransferase 19 U/L (14-59); Albumin Level 3.5 g/dL (3.4-5.0); Alkaline Phosphatase 67 U/L (46-116); Anion Gap 7 mmol/L (8-16); Aspartate Amino Transferase 29 U/L (15-37); Bilirubin,Total 0.4 mg/dL (0.00-1.00); Blood Urea Nitrogen 8 mg/dL (7-18); Calcium 8.7 mg/dL (8.5-10.1); Carbon Dioxide 26 mmol/L (21-32); Chloride 103 mmol/L (98-108); Cholesterol 140 mg/dL (0-200); Estimated Glomerular Filt Rate > 60; Glucose 90 mg/dL (70-99); HDL Direct 43 mg/dL (40-60); LDL Cholesterol Calculated 54 mg/dL (<130); Osmolality Calculated 280 mOsm/kg (285-295); Potassium 4.4 mmol/L (3.5-5.1); Sodium 136 mmol/L (136-145); Thyroid Stimulating Hormone 3.75 uIU/mL (0.36-3.74); Total Protein 7.1 g/dL (6.4-8.2); Triglycerides 217 mg/dL (0-150)
== END 2021-09-22 15:34 | disposition home or self-care (01) ==
LOC: CHSLAB 15:37
PROVIDERS: PCP Physician Assistant; Visit Provider Physician Assistant
DX: I10 Essential (primary) hypertension (principal)
CPT/HCPCS: 36415; 80053; 80061; 84443; 85027

== ENCOUNTER 2021-10-11 11:19 | Emergency (ER) | payer BC, SELFPAY ==
[2021-10-11] VITALS (12 sets, daily range): BP systolic 121–170; BP diastolic 98–126; PULSE 72–75; RESP 20; TEMP 36.5–36.7; O2SAT 92–97
[2021-10-11] MEDS: IBUPROFEN 400 MG TABLET 800 MG PO (12:01)
[2021-10-11] MEDS: guaiFENesin 12 HR 600 MG TABCR (12:02)
[2021-10-11 12:34] LABS: Influenza A QL RT-PCR Negative (Negative); Influenza B QL RT-PCR Negative (Negative); SARS-CoV-2 RNA PCR Negative (Negative)
--- NOTE | 2021-10-11 12:38 | ED.URI ---
HPI - URI/Sore Throat General Chief Complaint: Upper Respiratory Infection Stated Complaint: sore throat and swollen Time Seen by Provider: 10/11/21 11:22 Source: patient and RN notes reviewed Mode of arrival: ambulatory Limitations: no limitations History of Present Illness MD elicited complaint: cough and sore throat Onset (ago): day(s) (2) Severity: mild Pain scale (0-10): 3 Able to tolerate fluids by mouth: Yes Exacerbating factors: nothing Relieving factors: cough suppressant Associated symptoms: sore throat Related Data Home Medications Medication Instructions Recorded Confirmed hydrochlorothiazide 25 mg tablet 25 mg PO DAILY 10/11/21 10/11/21 Allergies Allergy/AdvReac Type Severity Reaction Status Date / Time amlodipine Allergy Unknown Verified 10/11/21 11:53 lisinopril Allergy Unknown Verified 10/11/21 11:53 metoprolol Allergy Unknown Verified 10/11/21 11:53 Review of Systems Review of Systems: All systems reviewed & are unremarkable except as noted in HPI and below Constitutional: Constitutional: Reports no additional constitutional complaints Eyes: Eyes: Reports no additional eye complaints ENT: Reports system reviewed and no additional complaints, except as documented Cardiovascular: Cardiovascular: Reports no additional cardiovascular complaints Respiratory: Respiratory: Reports no additional respiratory complaints Gastrointestinal: Gastrointestinal: Reports no additional gastrointestinal complaints Genitourinary: Genitourinary: Reports no additional female genitourinary complaints Musculoskeletal: Musculoskeletal: Reports no additional musculoskeletal complaints Integumentary/Breasts: Skin/Breast: Reports system reviewed and no additional complaints, except as docu Neurologic: Reports system reviewed and no additional complaints, except as documented Psychiatric: Psychiatric: Reports no additional psychiatric complaints Endocrine: Endocrine: Reports no additional endocrine complaints Hematologic/Lymphatic: Hematologic/Lymphatic: Reports no additional hematologic/lymphatic complaints Allergic/Immunologic: Allergic/Immunologic: Reports no additional allergic/immunologic complaints [facility] Past Medical History Medical History (Updated 11/04/21 @ 08:03 by Shirin Azul MD) Anxiety Asthma Encounter for long-term (current) use of other medications Fatigue Hiatal hernia HTN (hypertension) Hypersomnolence Hypokalemia Hypothyroid Obesity Pharyngitis Post-tubal ligation syndrome Sialadenitis referring back to the ear nose throat at [place] that said that she had right salivary problems and recommended resection Surgical History Surgical History (Updated 06/08/21 @ 17:38 by Sabas Bravo MD) H/O: hysterectomy History of repair of hiatal hernia Family History Family History Father Diabetes mellitus Hypertension Depression Anxiety Heart problem Mother Alcohol abuse Asthma Cancer Hypertension Depression Anxiety Heart problem Thyroid disorder Sibling Cancer Hypertension Anxiety Depression Social History Social History Smoking status: Never smoker Second hand tobacco smoke exposure: Yes Smoking end date: 05/30/00 Alcohol intake: never Substance use: never Spiritual care concerns: No Exam Const: General: no acute distress Nutritional Appearance: obese Orientation/consciousness: patient oriented x3 Limitations: no limitations HENMT: Head: normal to inspection Ears: external ears normal, TM's normal bilaterally and EAC's normal General nose exam: Normal external nose present and Normal nares present Face and sinus: normal facial exam and sinuses nontender Mouth: Yes Normal oral and palatal mucosa present and Yes moist mucous membranes Teeth and gingiva: dentition normal Other: mild pharyngeal redness Eyes: Conjunc
[2021-10-11] MEDS: cloNIDine HCL 0.2 MG TABLET PO (12:47)
== END 2021-10-11 14:28 | disposition home or self-care (01) ==
PROVIDERS: Emergency Provider Emergency Medicine; PCP Physician Assistant
DX: J06.9 Acute upper respiratory infection, unspecified (principal); J02.9 Acute pharyngitis, unspecified; I10 Essential (primary) hypertension; Z20.822 Contact with and (suspected) exposure to COVID-19
CPT/HCPCS: 87081; 87502; 87880; 99283; A9270; C9803; U0003; U0005

== ENCOUNTER 2021-11-25 21:26 | Emergency (ER) | payer OTHER, SELFPAY ==
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
[2021-11-25 21:30] VITALS: BP 150/106; PULSE 94; RESP 18; TEMP 37; O2SAT 98
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
[2021-11-25 23:57] VITALS: BP 145/114; PULSE 71; RESP 17; TEMP 36.4; O2SAT 98
== END 2021-11-26 00:32 | disposition home or self-care (01) ==
PROVIDERS: Emergency Provider Emergency Medicine; PCP Physician Assistant
DX: S13.4XXA Sprain of ligaments of cervical spine, initial encounter (principal); S40.011A Contusion of right shoulder, initial encounter; S80.01XA Contusion of right knee, initial encounter; V89.2XXA Person injured in unspecified motor-vehicle accident, traffic, initial encounter
CPT/HCPCS: 72125; 73030; 73562; 99284

== ENCOUNTER 2022-04-05 06:33 | Emergency (ER) | payer OTHER, SELFPAY ==
--- NOTE | ~2022-04-05 | XR_ITS ---
EXAMINATION: XR wrist LT min 3V DATE: 04/05/2022 07:41 INDICATION: Generalized left wrist pain post hyperextension injury. TECHNIQUE: Posteroanterior, ulnar deviation, oblique, and lateral views of the left wrist were obtain ed. COMPARISON: none FINDINGS: Alignment is normal. No fracture. Joint spaces are normal. Soft tissues are unremarkable. IMPRESSION: 1. Negative left wrist radiographs. Reviewed, dictated and finalized at location A. 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
[2022-04-05 06:40] VITALS: BP 158/120; PULSE 83; RESP 20; TEMP 36.3; O2SAT 98
[2022-04-05] MEDS: KETOROLAC (*BKC) 60 MG/2 ML VIAL IM (06:57)
--- NOTE | 2022-04-05 07:12 | PC.NURSE ---
Report given to MARGARET Bey
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
[2022-04-05 08:16] VITALS: BP 143/95; PULSE 67; RESP 16; TEMP 36.4; O2SAT 100
== END 2022-04-05 08:18 | disposition home or self-care (01) ==
PROVIDERS: Emergency Provider Internal Medicine Critical Care Medicine; PCP Physician Assistant
DX: M25.532 Pain in left wrist (principal)
CPT/HCPCS: 73110; 96372; 99283; J1885

== ENCOUNTER 2022-08-10 15:35 | Emergency (ER) | payer BC, SELFPAY ==
[2022-08-10 15:35] VITALS: BP 160/106; PULSE 94; RESP 16; TEMP 36.8; O2SAT 97
--- NOTE | 2022-08-10 15:45 | ED.SYNCOPE ---
HPI - Syncope General Chief Complaint: Syncope Stated Complaint: syncope Time Seen by Provider: 08/10/22 15:43 Source: patient and RN notes reviewed Mode of arrival: ambulatory Limitations: no limitations History of Present Illness HPI narrative: patient states she began having pain in her left leg 2 days ago. She said it seemed to be red and had fever in it . She took some ibuprofen and she said the fever went away but she still has pain in her leg. She denies any trauma. She said that when kids lay on the leg it is painful. She says it hurts when she walks. She has not noticed any increased swelling. Then she began having pain from the leg up into her groin and then began having pain in her chest radiating to her back and hurts to take a deep breath. She said she just did not feel right she was walking up the stairs at her house and then she woke up on the floor. She asked her what happened and he said that she just passed out. She said her anterior chest still hurts because she fell onto her chest. She denies any significant dyspnea other than it hurts to take a deep breath. Patient also states that she ran out of her hydrochlorothiazide 1 week ago. Her doctor is out of town for 2 weeks and they said that she needs an appointment. complaint: collapsed Onset (ago): hour(s) (1) -: second(s) Prodromal symptoms: lightheaded Witnessed: No Context: during exertion ( walking up the stairs) Injuries sustained associated with event: chest Current symptoms: weakness Treatments prior to arrival: none Related Data Home Medications Medication Instructions Recorded Confirmed hydrochlorothiazide 25 mg tablet 25 mg PO DAILY 10/11/21 08/10/22 Allergies Allergy/AdvReac Type Severity Reaction Status Date / Time amlodipine Allergy Unknown Verified 08/10/22 15:51 lisinopril Allergy Unknown Verified 08/10/22 15:51 metoprolol Allergy Unknown Verified 08/10/22 15:51 Review of Systems Review of Systems: All systems reviewed & are unremarkable except as noted in HPI and below PMFSH Past Medical History Medical History Anxiety Asthma Encounter for long-term (current) use of other medications Fatigue Hiatal hernia HTN (hypertension) Hypersomnolence Hypokalemia Hypothyroid Obesity Pharyngitis Post-tubal ligation syndrome Sialadenitis referring back to the ear nose throat at [place] that said that she had right salivary problems and recommended resection Surgical History Surgical History H/O thyroidectomy H/O: hysterectomy History of repair of hiatal hernia Family History Family History Father Diabetes mellitus Hypertension Depression Anxiety Heart problem Mother Alcohol abuse Asthma Cancer Hypertension Depression Anxiety Heart problem Thyroid disorder Sibling Cancer Hypertension Anxiety Depression Social History Social History Smoking status: Never smoker Second hand tobacco smoke exposure: Yes Smoking end date: 05/30/00 Alcohol intake: never Substance use: never Spiritual care concerns: No Exam Const: General: healthy appearing, no acute distress and alert Nutritional Appearance: well nourished and obese Orientation/consciousness: patient oriented x3 Limitations: no limitations HENMT: Head: normal to inspection Ears: external ears normal Face/Nose/Sinus: Normal external nose present Face and sinus: normal facial exam Mouth: Yes moist mucous membranes Eyes: Conjunctivae: conjunctivae normal Pupils: Equal, round and reactive pupils present EOM: EOMs intact bilaterally Neck: Neck: normal visual inspection Resp: Effort & Inspection: normal respiratory effort, not labored and not tachypneic Auscultation: clear to auscultation bilaterally
[2022-08-10 15:46] VITALS: BP 160/106; PULSE 94; RESP 16; TEMP 36.8; O2SAT 97
--- NOTE | 2022-08-10 16:03 | ECG_ITS ---
Measurements Intervals [place] Rate: 86 P: 7 [place]: 133 QRS: 23 QRSD: 93 T: 47 QT: 348 QTc: 418 Interpretive Statements SINUS RHYTHM VOLTAGE CRITERIA FOR LVH CONSIDER INFERIOR INFARCT, AGE INDETERMINATE ABNORMAL ECG COMPARED TO ECG 01/07/2021 06:08:44 SINUS RHYTHM NOW PRESENT Electronically Signed On 08-10-2022 16:59:56 CDT by Glenn Luz D.O.
[2022-08-10 16:27] LABS: Basophils Absolute Auto 0.05 K/mm3 (0.00-0.10); Basophils Percent Auto 0.6 % (0.0-1.0); Eosinophils Absolute Auto 0.31 K/mm3 (0.02-0.50); Eosinophils Percent Auto 3.5 % (1.0-6.0); Hematocrit 40.4 % (35.0-49.0); Hemoglobin 13.9 g/dL (12.0-15.0); Immature Granulocyte Absolute 0.03 K/mm3 (0.00-0.00); Immature Granulocyte Percent A 0.3 % (0.0-0.0); Lymphocytes Absolute Auto 2.64 K/mm3 (1.10-4.50); Mean Corpuscular HGB Conc 34.4 g/dL (32.0-36.0); Mean Corpuscular Hemoglobin 29.5 pg (27.0-31.0); Mean Corpuscular Volume 85.8 fL (78.0-102.0); Mean Platelet Volume 9.8 fl (9.2-11.8); Monocytes Absolute Auto 0.78 K/mm3 (0.10-0.90); Monocytes Percent Auto 8.9 % (2.0-11.0); Neutrophils Percent Auto 56.7 % (50.0-70.0); Platelet Count Result 352 K/mm3 (150-420); Red Blood Count 4.71 M/mm3 (4.20-5.40); Red Cell Distribution Width 12.3 % (11.6-14.4); White Blood Count 8.8 K/mm3 (4.8-10.8)
[2022-08-10 16:42] LABS: D Dimer 0.33 mg/L (0.19-0.50)
[2022-08-10 16:44] LABS: Alanine Aminotransferase 22 U/L (14-59); Albumin Level 3.4 g/dL (3.4-5.0); Alkaline Phosphatase 89 U/L (46-116); Anion Gap 10 mmol/L (8-16); Aspartate Amino Transferase 16 U/L (15-37); Bilirubin,Total 0.4 mg/dL (0.00-1.00); Blood Urea Nitrogen 8 mg/dL (7-18); Calcium 8.8 mg/dL (8.5-10.1); Carbon Dioxide 29 mmol/L (21-32); Chloride 103 mmol/L (98-108); Estimated CRCL calculation 111 ml/min; Estimated Glomerular Filt Rate > 60; Glucose 104 mg/dL (70-99); Osmolality Calculated 292 mOsm/kg (285-295); Potassium 3.7 mmol/L (3.5-5.1); Sodium 142 mmol/L (136-145); Total Protein 7.6 g/dL (6.4-8.2); Troponin I 4.5 ng/L (0.00-60.4)
[2022-08-10 17:03] LABS: Lactic Acid Reflex 1.4 mmol/L (0.4-2.0)
[2022-08-10 18:13] VITALS: BP 155/90; PULSE 74; RESP 18; TEMP 36.4; O2SAT 96
== END 2022-08-10 18:13 | disposition home or self-care (01) ==
PROVIDERS: Emergency Provider Emergency Medicine; PCP Physician Assistant
DX: R55 Syncope and collapse (principal); I10 Essential (primary) hypertension; E03.9 Hypothyroidism, unspecified
CPT/HCPCS: 36415; 80053; 83605; 84484; 85025; 85380; 93005; 99283

== ENCOUNTER 2022-08-18 14:01 | Outpatient (CLI) | payer BC, MEDICAID, SELFPAY ==
--- NOTE | ~2022-08-18 | US_ITS ---
EXAMINATION: US venous doppler [facility] DATE: 08/18/2022 14:43 INDICATION: Left leg pain and swelling. TECHNIQUE: Grayscale images without and with compression and Doppler images of the left lower extremi ty veins were obtained. COMPARISON: None FINDINGS: The left common femoral vein, profunda femoral vein, femoral vein, popliteal vein, peroneal vein, pos terior tibial veins, gastrocnemius vein, and greater saphenous vein are patent. IMPRESSION: 1. Patent left lower extremity veins. No evidence of deep venous thrombosis. Reviewed, dictated and finalized at location K.
[2022-08-18 14:19] LABS: Hematocrit 43.8 % (35.0-49.0); Hemoglobin 14.8 g/dL (12.0-15.0); Mean Corpuscular HGB Conc 33.8 g/dL (32.0-36.0); Mean Corpuscular Hemoglobin 28.8 pg (27.0-31.0); Mean Corpuscular Volume 85.4 fL (78.0-102.0); Mean Platelet Volume 10.1 fl (9.2-11.8); Platelet Count Result 415 K/mm3 (150-420); Red Blood Count 5.13 M/mm3 (4.20-5.40); Red Cell Distribution Width 12.3 % (11.6-14.4); White Blood Count 10.1 K/mm3 (4.8-10.8)
[2022-08-18 14:54] LABS: Alanine Aminotransferase 26 U/L (14-59); Albumin Level 3.7 g/dL (3.4-5.0); Alkaline Phosphatase 98 U/L (46-116); Anion Gap 13 mmol/L (8-16); Aspartate Amino Transferase 21 U/L (15-37); Bilirubin,Total 0.5 mg/dL (0.00-1.00); Blood Urea Nitrogen 11 mg/dL (7-18); Calcium 9.5 mg/dL (8.5-10.1); Carbon Dioxide 28 mmol/L (21-32); Chloride 98 mmol/L (98-108); Cholesterol 195 mg/dL (0-200); Estimated Glomerular Filt Rate > 60; Glucose 118 mg/dL (70-99); HDL Direct 55 mg/dL (40-60); LDL Cholesterol Calculated 95 mg/dL (<130); Osmolality Calculated 288 mOsm/kg (285-295); Potassium 3.7 mmol/L (3.5-5.1); Sodium 139 mmol/L (136-145); Total Protein 7.7 g/dL (6.4-8.2); Triglycerides 224 mg/dL (0-150)
== END 2022-08-18 14:02 | disposition home or self-care (01) ==
PROVIDERS: PCP Physician Assistant; Visit Provider Physician Assistant
DX: M79.605 Pain in left leg (principal)
CPT/HCPCS: 36415; 80053; 80061; 85027; 93971

== ENCOUNTER 2022-11-19 16:10 | Outpatient (CLI) | payer BC, MEDICAID, SELFPAY | END 2022-11-19 16:11 | disposition home or self-care (01) | PROVIDERS: PCP Physician Assistant; Visit Provider Physician Assistant | DX: R19.5 Other fecal abnormalities (principal) | CPT/HCPCS: 87177; 87209 ==

== ENCOUNTER 2023-06-07 14:07 | Emergency (ER) | payer BC, SELFPAY ==
--- NOTE | ~2023-06-07 | XR_ITS ---
XR chest 2V DATE: 06/07/2023 14:24 INDICATION: Dizziness, lightheadedness, shortness of TECHNIQUE: 2 views COMPARISON: 06/05/2021 2 view chest FINDINGS: Normal heart size. No hilar or mediastinal enlargement. No pulmonary infiltrate or consolid ation, pleural effusion or pulmonary vascular congestion or pneumothorax is detected. Status post cholecystectomy. Mild thoracic dextroscoliosis. IMPRESSION: No active cardiopulmonary disease Reviewed, dictated and finalized at location L. [employer] EXAMINER
[2023-06-07 14:09] VITALS: BP 131/93; PULSE 83; RESP 19; TEMP 36.6; O2SAT 96
--- NOTE | 2023-06-07 14:10 | ECG_ITS ---
Measurements Intervals [place] Rate: 68 P: 22 [place]: 149 QRS: 20 QRSD: 98 T: 38 QT: 393 QTc: 420 Interpretive Statements SINUS RHYTHM VOLTAGE CRITERIA FOR LVH CONSIDER INFERIOR INFARCT, AGE INDETERMINATE BORDERLINE T WAVE ABNORMALITY- ANTERIOR LEADS ABNORMAL ECG COMPARED TO ECG 08/10/2022 16:13:51 NO SIGNIFICANT CHANGES Electronically Signed On 06-07-2023 16:16:19 COUNTERPERSON by Glenn Luz D.O.
--- NOTE | 2023-06-07 14:11 | ED.DIZZY ---
HPI - Dizziness General Chief Complaint: Dizziness Stated Complaint: lethargic/dizziness Time Seen by Provider: 06/07/23 14:10 Source: patient Mode of arrival: ambulatory Limitations: no limitations History of Present Illness HPI Narrative: Patient is a 42-year-old female with 4 days of lightheaded and dizziness. Sometimes her blood pressure medicine causes this problem so she stopped it for 1 day. She felt worse today so she came to the ER for evaluation. Her pressure is elevated at this time. patient has a lot of stress at this time. She feels that this is possibly anxiety as well. MD elicited complaint: dizziness and lightheadedness Onset (ago): day(s) (4) Timing: gradual onset Severity: moderate Description: lightheadedness History of similar symptoms: No Exacerbating factors: nothing Relieving factors: nothing Associated symptoms: denies other symptoms Related Data Allergies Allergy/AdvReac Type Severity Reaction Status Date / Time amlodipine Allergy Unknown Verified 06/07/23 14:28 lisinopril Allergy Unknown Verified 06/07/23 14:28 metoprolol Allergy Unknown Verified 06/07/23 14:28 Review of Systems Review of Systems: All systems reviewed & are unremarkable except as noted in HPI and below Constitutional: Constitutional: Reports no additional constitutional complaints Eyes: Eyes: Reports no additional eye complaints ENT: Reports system reviewed and no additional complaints, except as documented Cardiovascular: Cardiovascular: Reports no additional cardiovascular complaints Respiratory: Respiratory: Reports no additional respiratory complaints Gastrointestinal: Gastrointestinal: Reports no additional gastrointestinal complaints Genitourinary: Genitourinary: Reports no additional female genitourinary complaints Musculoskeletal: Musculoskeletal: Reports no additional musculoskeletal complaints Integumentary/Breasts: Skin/Breast: Reports system reviewed and no additional complaints, except as docu Neurologic: Reports system reviewed and no additional complaints, except as documented Psychiatric: Psychiatric: Reports no additional psychiatric complaints Endocrine: Endocrine: Reports no additional endocrine complaints Hematologic/Lymphatic: Hematologic/Lymphatic: Reports no additional hematologic/lymphatic complaints Allergic/Immunologic: Allergic/Immunologic: Reports no additional allergic/immunologic complaints PMFSH Past Medical History Medical History Anxiety Asthma Encounter for long-term (current) use of other medications Fatigue Hiatal hernia HTN (hypertension) Hypersomnolence Hypokalemia Hypothyroid Obesity Pharyngitis Post-tubal ligation syndrome Sialadenitis referring back to the ear nose throat at [place] that said that she had right salivary problems and recommended resection Surgical History Surgical History H/O thyroidectomy H/O: hysterectomy History of repair of hiatal hernia Family History Family History Father Diabetes mellitus Hypertension Depression Anxiety Heart problem Mother Alcohol abuse Asthma Cancer Hypertension Depression Anxiety Heart problem Thyroid disorder Sibling Cancer Hypertension Anxiety Depression Social History Social History Smoking status: Never smoker Second hand tobacco smoke exposure: Yes Smoking end date: 05/30/00 Alcohol intake: never Substance use: never Spiritual care concerns: No Exam Const: General: healthy appearing Nutritional Appearance: well nourished Orientation/consciousness: patient oriented x3 HENMT: Head: normal to inspection Ears: TM's normal bilaterally Face/Nose/Sinus: Normal external nose present Eyes: Conjunctivae: conjunctivae normal Pupils: Equal, round
[2023-06-07 14:46] LABS: Hematocrit 42.3 % (35.0-49.0); Hemoglobin 13.9 g/dL (12.0-15.0); Mean Corpuscular HGB Conc 32.9 g/dL (32.0-36.0); Mean Corpuscular Hemoglobin 29.1 pg (27.0-31.0); Mean Corpuscular Volume 88.7 fL (78.0-102.0); Platelet Count Result 338 K/mm3 (150-420); Red Blood Count 4.77 M/mm3 (4.20-5.40); Red Cell Distribution Width 12.2 % (11.6-14.4); White Blood Count 7.5 K/mm3 (4.8-10.8)
[2023-06-07 14:56] LABS: SARS-CoV-2 RNA PCR Negative (Negative)
[2023-06-07 15:01] LABS: D Dimer 0.19 mg/L (0.19-0.50)
[2023-06-07 15:02] LABS: Influenza A QL RT-PCR Negative (Negative); Influenza B QL RT-PCR Negative (Negative); RSV RNA, RT-PCR Negative (Negative)
[2023-06-07 15:03] LABS: Alanine Aminotransferase 37 U/L (14-59); Albumin Level 3.2 g/dL (3.4-5.0); Alkaline Phosphatase 77 U/L (46-116); Anion Gap 10 mmol/L (8-16); Aspartate Amino Transferase 27 U/L (15-37); Bilirubin,Total 0.3 mg/dL (0.00-1.00); Blood Urea Nitrogen 10 mg/dL (7-18); Calcium 8.2 mg/dL (8.5-10.1); Carbon Dioxide 27 mmol/L (21-32); Chloride 104 mmol/L (98-108); Estimated CRCL calculation 89 ml/min; Estimated Glomerular Filt Rate > 60; Glucose 94 mg/dL (70-99); Osmolality Calculated 291 mOsm/kg (285-295); Potassium 3.5 mmol/L (3.5-5.1); Sodium 141 mmol/L (136-145); Total Protein 6.6 g/dL (6.4-8.2)
[2023-06-07 15:05] LABS: Partial Thromboplastin Time 25.9 SEC (23.90-30.70); Prothrombin Time 10.7 Seconds (9.50-12.10)
[2023-06-07 15:18] LABS: Troponin I < 4.0 ng/L (0.00-60.4)
[2023-06-07 15:43] LABS: Band Neutrophils Percent 0 % (0-6); Basophils Percent Manual 0 % (0-1); Eosinophils Absolute Manual 0.52 K/mm3 (0.02-0.5); Eosinophils Percent Manual 7 % (1-6); Lymphocytes Absolute Manual 2.02 K/mm3 (1.1-4.5); Lymphocytes Percent Manual 27 % (18-44); Monocytes Percent Manual 4 % (3-9); Neutrophils Absolute Manual 4.65 K/mm3 (1.7-7.2); Neutrophils Percent Manual 62 % (46-73); Platelet Estimate Adequate (Adequate); Total Cells Counted 100
--- NOTE | 2023-06-07 16:13 | PC.NURSE ---
Pt refused clonidine, saying she has taken it before and it makes her too drowsy. Pt states that she did not take her hctz last night. BP is currently 125/88. ERP aware.
[2023-06-07 16:14] VITALS: BP 125/88; PULSE 69; RESP 18; O2SAT 94
--- NOTE | 2023-06-07 18:10 | PC.NURSE ---
Pt ambulatory to restroom. UA was previously marked as collected/pending on EMR, so no urine collected at this time. RN called lab, who states that they do not have pt's urine sample. ERP aware.
--- NOTE | 2023-06-07 18:37 | PC.NURSE ---
ERP at bedside updating pt about results.
[2023-06-07 18:44] LABS: SPREG INTERNAL CONTROL Positive; Serum Qual hCG Negative
[2023-06-07 18:48] VITALS: BP 132/87; PULSE 86; RESP 19; TEMP 37
== END 2023-06-07 18:54 | disposition home or self-care (01) ==
PROVIDERS: Emergency Provider Emergency Medicine; PCP Physician Assistant
DX: R42 Dizziness and giddiness (principal); I10 Essential (primary) hypertension; J45.909 Unspecified asthma, uncomplicated; E03.9 Hypothyroidism, unspecified; Z20.822 Contact with and (suspected) exposure to COVID-19; Z79.899 Other long term (current) drug therapy
CPT/HCPCS: 36415; 71046; 80053; 81025; 84484; 84703; 85025; 85380; 85610; 85730; 87637; 93005; 99284

== ENCOUNTER 2023-09-11 00:58 | Emergency (ER) | payer BC, SELFPAY ==
--- NOTE | ~2023-09-11 | XR_ITS ---
EXAMINATION: XR chest 1V portable DATE: 09/11/2023 01:40 INDICATION: Shortness of breath and cough TECHNIQUE: frontal view of the chest was obtained. COMPARISON: Chest radiograph dated 06/17/2023 FINDINGS: The lungs remain clear with no focal airspace opacities, pulmonary edema, pleural effusion or pneumot horax. The cardiomediastinal silhouette is normal. Mild thoracic dextrocurvature. IMPRESSION: 1. No acute cardiopulmonary disease. Reviewed, dictated and finalized at location A.
[2023-09-11 01:01] VITALS: BP 159/124; PULSE 91; RESP 18; TEMP 36.4; O2SAT 98
--- NOTE | 2023-09-11 01:30 | ED.DENTAL ---
HPI - Dental/Oral General Chief complaint: Dental/Oral Stated complaint: tooth pain Source: patient and family Mode of arrival: ambulatory Limitations: no limitations History of Present Illness HPI Narrative: this is 42 year female with a history of dental decay cavities with surrounding gum inflammation 10 internus with right submandibular gland swelling no fever chills no shortness of breath does have cough is productive yellow sputum no nausea vomiting no abdominal pain patient appears anxious. MD Complaint: tooth pain Teeth map: 1. tooth decay with surrounding gum inflammation Onset (ago): day(s) Duration: constant Severity: moderate Related Data Allergies Allergy/AdvReac Type Severity Reaction Status Date / Time amlodipine Allergy Unknown Verified 06/07/23 14:28 lisinopril Allergy Unknown Verified 06/07/23 14:28 metoprolol Allergy Unknown Verified 06/07/23 14:28 Review of Systems Review of Systems: All systems reviewed & are unremarkable except as noted in HPI and below PMFSH Past Medical History Medical History Anxiety Asthma Encounter for long-term (current) use of other medications Fatigue Hiatal hernia HTN (hypertension) Hypersomnolence Hypokalemia Hypothyroid Obesity Pharyngitis Post-tubal ligation syndrome Sialadenitis referring back to the ear nose throat at [place] that said that she had right salivary problems and recommended resection Surgical History Surgical History H/O thyroidectomy H/O: hysterectomy History of repair of hiatal hernia Family History Family History Father Diabetes mellitus Hypertension Depression Anxiety Heart problem Mother Alcohol abuse Asthma Cancer Hypertension Depression Anxiety Heart problem Thyroid disorder Sibling Cancer Hypertension Anxiety Depression Social History Social History Smoking status: Never smoker Second hand tobacco smoke exposure: Yes Smoking end date: 05/30/00 Alcohol intake: never Substance use: never Spiritual care concerns: No Exam Const: General: healthy appearing and no acute distress Nutritional Appearance: well nourished Orientation/consciousness: patient oriented x3 HENMT: Other: Right lower premolar tooth decay was surrounding gum inflammation Neck: Neck: normal visual inspection and lymphadenopathy Chest: Chest palpation & inspection: normal inspection of the chest Resp: Effort & Inspection: normal respiratory effort Auscultation: clear to auscultation bilaterally Cardio: Rate: regular rate Rhythm: regular rhythm GI: Auscultation: normal bowel sounds Skin: General skin exam: normal color Rashes: no rashes Psych: Affect: Anxious affect present Course Course Emergency Course: patient received a dose of Depo-Medrol, and ceftriaxone, CBC reviewed and within normal limits chest x-ray within limits. Vital Signs Vital signs: Vital Signs Temperature 36.4 C 09/11/23 01:01 Pulse Rate 91 09/11/23 01:01 Respiratory Rate 18 09/11/23 01:01 Blood Pressure 159/124 H 09/11/23 01:01 Pulse Oximetry 98 09/11/23 01:01 Oxygen Delivery Room Air 09/11/23 01:01 Temperature 36.4 C 09/11/23 01:01 Pulse Rate 91 09/11/23 01:01 Respiratory Rate 18 09/11/23 01:01 Blood Pressure 159/124 H 09/11/23 01:01 Pulse Oximetry 98 09/11/23 01:01 Oxygen Delivery Room Air 09/11/23 01:01 MDM - Dental/Oral Lab Data Labs: Lab Results 09/11/23 Range/Units 01:15 Group A Strep (PCR) Pending Critical Care Time Critical Care Time Critical Care Time: No Discharge Plan Discharge Clinical Impression: Dental abscess Patient Disposition: Home, Self-Care Condition: Stable Instructions: Antibiot
[2023-09-11 01:36] LABS: Basophils Absolute Auto 0.11 K/mm3 (0.00-0.10); Basophils Percent Auto 1.1 % (0.0-1.0); Eosinophils Absolute Auto 0.47 K/mm3 (0.02-0.50); Eosinophils Percent Auto 4.7 % (1.0-6.0); Hematocrit 39.2 % (35.0-49.0); Hemoglobin 13.1 g/dL (12.0-15.0); Immature Granulocyte Absolute 0.03 K/mm3 (0.00-0.00); Immature Granulocyte Percent A 0.3 % (0.0-0.0); Lymphocytes Absolute Auto 3.39 K/mm3 (1.10-4.50); Mean Corpuscular HGB Conc 33.4 g/dL (32-36); Mean Corpuscular Hemoglobin 29.3 pg (27.0-31.0); Mean Corpuscular Volume 87.7 fL (78.0-102.0); Mean Platelet Volume 9.9 fl (9.2-11.8); Monocytes Absolute Auto 0.95 K/mm3 (0.10-0.90); Monocytes Percent Auto 9.5 % (2.0-11.0); Neutrophils Absolute Auto 5.03 K/mm3 (1.70-7.20); Neutrophils Percent Auto 50.4 % (50.0-70.0); Platelet Count Result 304 K/mm3 (150-420); Red Blood Count 4.47 M/mm3 (4.20-5.40); Red Cell Distribution Width 12.5 % (11.6-14.4)
[2023-09-11] MEDS: cefTRIAXone 1 GM, LIDOCAINE HCL 1% LOCAL INJ 2.1 ML IM (01:36)
[2023-09-11] MEDS: methylPREDNISolone ACETATE 40 MG/ML VIAL 80 MG IM (01:37)
[2023-09-11 01:47] LABS: Strep Group A RT-PCR NOT DETECTED (Negative)
[2023-09-11 02:03] VITALS: BP 125/94
== END 2023-09-11 02:07 | disposition home or self-care (01) ==
PROVIDERS: Emergency Provider Emergency Medicine; PCP Physician Assistant
DX: K04.7 Periapical abscess without sinus (principal); F41.9 Anxiety disorder, unspecified; J45.909 Unspecified asthma, uncomplicated; I10 Essential (primary) hypertension; E03.9 Hypothyroidism, unspecified; E66.9 Obesity, unspecified; Z68.41 Body mass index [BMI] 40.0-44.9, adult
CPT/HCPCS: 36415; 71045; 85025; 87651; 96372; 99284; J0696; J1010

== ENCOUNTER 2024-06-02 19:31 | Emergency (ER) | payer BC, SELFPAY ==
[2024-06-02] VITALS (19 sets, daily range): BP systolic 125–158; BP diastolic 73–108; PULSE 68–88; RESP 13–25; TEMP 36.6; O2SAT 95–99
--- NOTE | ~2024-06-02 | XR_ITS ---
XR chest 1V portable Ordering provider: Mahad Michaels MD History: 43 years Female with . STERNAL CHEST PAIN X 4 DAYS. . Comparison: September 11, 2023 FINDINGS: MEDIASTINUM: The cardiac silhouette is not enlarged. LUNGS: No effusions or pneumothorax. Opacification in the right lung base is seen. Bilateral intersti tial changes are noted which may indicate pneumonitis. OTHER: No free air under the diaphragm. IMPRESSION: Right basal pneumonia. Bilateral pneumonitis. Reviewed, dictated and finalized at location A. 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
--- NOTE | 2024-06-02 19:45 | ED.CHESTPAIN ---
HPI - Chest Pain General Chief Complaint: Chest Pain Stated Complaint: chest pain/ jaw pain Time Seen by Provider: 06/02/24 19:42 Source: patient Mode of arrival: ambulatory Limitations: no limitations History of Present Illness HPI narrative: 43-year-old female with a history of hypertension, hypothyroidism, asthma, anxiety presents to the ED with -- substernal chest pain off and on for the past 4 days which has gotten worse over the past 3 hours. Pain currently 7/10. It radiates to the jaw. It also radiates to the right side of the neck. No nausea/ vomiting. No shortness of breath. No lightheadedness. She has had chest pains off and on secondary to her anxiety but has never lasted this long. She has a positive family history of coronary artery disease. MD complaint: chest pain Onset (ago): day(s) ( Four days) Timing of current episode: constant Prior episodes: Yes Onset: during rest Pain location: substernal Pain radiation: neck and jaw/teeth Severity: severe Pain scale (0-10): 7 Quality: aching Relieving factors: nothing Exacerbating factors: nothing Treatment prior to arrival: none Risk Factors Coronary artery disease risk factors: family history of CAD before age 50 Related Data On Oral Contraceptives: No Allergies Allergy/AdvReac Type Severity Reaction Status Date / Time amlodipine Allergy Unknown Verified 06/02/24 19:49 lisinopril Allergy Unknown Verified 06/02/24 19:49 metoprolol Allergy Unknown Verified 06/02/24 19:49 Review of Systems Review of Systems: All systems reviewed & are unremarkable except as noted in HPI and below Constitutional: Constitutional: Reports as per HPI and Reports no additional constitutional complaints Eyes: Eyes: Reports as per HPI ENT: Reports system reviewed and no additional complaints, except as documented and Reports as per HPI Cardiovascular: Cardiovascular: Reports as per HPI, Reports no additional cardiovascular complaints, Reports chest pain and Reports radiating jaw, neck or arm pain Respiratory: Respiratory: Reports as per HPI and Reports no additional respiratory complaints Gastrointestinal: Gastrointestinal: Reports as per HPI and Reports no additional gastrointestinal complaints Genitourinary: Genitourinary: Reports no additional female genitourinary complaints Musculoskeletal: Musculoskeletal: Reports no additional musculoskeletal complaints and Reports as per HPI Integumentary/Breasts: Skin/Breast: Reports system reviewed and no additional complaints, except as docu and Reports as per HPI Neurologic: Reports system reviewed and no additional complaints, except as documented and Reports as per HPI Psychiatric: Psychiatric: Reports no additional psychiatric complaints, Reports as per HPI and Reports anxiety Endocrine: Endocrine: Reports no additional endocrine complaints and Reports as per HPI Hematologic/Lymphatic: Hematologic/Lymphatic: Reports no additional hematologic/lymphatic complaints and Reports as per HPI Allergic/Immunologic: Allergic/Immunologic: Reports no additional allergic/immunologic complaints and Reports as per HPI [facility] Past Medical History Medical History Pharyngitis Hypokalemia Sialadenitis referring back to the ear nose throat at [place] that said that she had right salivary problems and recommended resection Obesity Fatigue Encounter for long-term (current) use of other medications Hypersomnolence Post-tubal ligation syndrome Anxiety HTN (hypertension) Hiatal hernia Hypothyroid Asthma Surgical History Surgical History H/O thyroidectomy H/O: hysterectomy History of repair of hiatal hernia Family History Family History Father Diabetes mellitus Hypertension Depression Anxiety Heart problem Mother Alcohol abuse Asthma Cancer Hypertension Depression Anxiety Heart problem Thyroid disorder Sibling Cancer Hypertension Anxiety Depression Social History Social History Smoking status: Never smoker Second hand tobacco smoke exposure: Yes Smoking end date: 05/30/00 Alcohol intake: never Substance use: never Spiritual care concerns: No Exam Narrative: blood pressure 153/106 Const: General: no acute distress Orientation/consciousness: patient oriented x3 Limitations: no limitations HENMT: Head: normal to inspection Ears: external ears normal Face/Nose/Sinus: Normal external nose present Face and sinus: normal facial exam Mouth: Yes Normal oral and palatal mucosa present Throat: posterior oropharynx normal Eyes: Conjunctivae: conjunctivae normal Pupils: Equal, round and reactive pupils present EOM: EOMs intact bilaterally Neck: Neck: normal visual inspection, no lymphadenopathy and no meningeal signs Chest: Chest palpation & inspection: normal inspection of the chest Resp: Effort & Inspection: normal respiratory effort Auscultation: clear to auscultation bilaterally Other: chest wall tenderness Cardio: Rate: regular rate Rhythm: regular rhythm GI: Auscultation: normal bowel sounds Other: no tenderness/rigidity /rebound : General: Yes no CVA tenderness Back/Spine/Pelvis: Back: no CVA tenderness Skin: General skin exam: normal color Rashes: no rashes Wounds: no wounds Neuro: General: patient oriented x3, moves all extremities, no meningeal signs, no focal motor deficits and CN's II-XI intact bilaterally Cranial nerves: Yes Nystagmus not present Speech: normal speech Extrem: General: normal to inspection and no clubbing, cyanosis or edema Psych: Affect: Anxious affect present Course Course Emergency Course: chest pain-- DKA not show any acute findings. The patient was noted to have normal troponin. Normal D-dimer. Her chest pain improved significantly on the oral Xanax. Chest x-ray revealed bibasilar lung infiltrates. The patient does not have any respiratory symptoms. The patient is afebrile. The patient has a normal white cell count. will treat the patient with Zithromax. patient tested negative for influenza/ RSV/COVID anxiety Vital Signs Vital signs: Vital Signs Pulse Rate 88 06/02/24 19:31 Oxygen Delivery Room Air 06/02/24 19:31 Temperature 36.6 C 06/02/24 19:40 Pulse Rate 81 06/02/24 21:30 Respiratory Rate 17 06/02/24 21:30 Blood Pressure 143/100 H 06/02/24 21:16 Pulse Oximetry 96 06/02/24 21:30 Oxygen Delivery Room Air 06/02/24 19:40 MDM - Chest Pain MDM Narrative Medical decision making narrative: chest pain anxiety bibasilar lung infiltrates Differential Diagnosis Differential diagnosis: Likely pneumothorax, st elevation myocardial infarction and costochondritis Lab Data Attestation: I reviewed the patient's lab results. 06/02/24 20:45 06/02/24 20:45 Labs: Lab Results 06/02/24 06/02/24 06/02/24 Range/Units 19:58 20:45 21:37 WBC 10.0 (4.8-10.8) K/mm3 RBC 4.64 (4.20-5.40) M/mm3 Hgb 13.4 (12.0-15.0) g/dL Hct 39.7 (35.0-49.0) % MCV 85.6 (78.0-102.0) fL MCH 28.9 (27.0-31.0) pg MCHC 33.8 (32-36) g/dL RDW 12.4 (11.6-14.4) % Plt Count 360 (150-420) K/mm3 MPV 9.3 (9.2-11.8) fl Immature Gran % (Auto) 0.3 H (0.0-0.0) % Neut % (Auto) 55.9 (50.0-70.0) % Lymph % (Auto) 31.9 (18.0-42.0) % [place] % (Auto) 8.3 (2.0-11.0) % Eos % (Auto) 2.9 (1.0-6.0) % Baso % (Auto) 0.7 (0.0-1.0) % Lymph # (Auto) 3.19 (1.10-4.50) K/mm3 [place] # (Auto) 0.83 (0.10-0.90) K/mm3 Eos # (Auto) 0.29 (0.02-0.50) K/mm3 Baso # (Auto) 0.07 (0.00-0.10) K/mm3 Abs Immat Gran (auto) 0.03 H (0.00-0.00) K/mm3 Absolute Neuts (auto) 5.59 (1.70-7.20) K/mm3 Absolute Nucleated RBC 0.00 (0.00-0.00) K/mm3 Nucleated RBC % 0.0 (0-0.0) % PT 9.8 (9.50-12.1) Seconds INR 0.9 APTT 24.2 (23.9-30.70) Sec D-Dimer 0.19 Cancelled (0.19-0.50) mg/L Sodium 139 (136-145) mmol/L Potassium 3.7 (3.5-5.1) mmol/L Chloride 105 (98-108) mmol/L Carbon Dioxide 27 (21-32) mmol/L Anion Gap 7 (4-12) mmol/L BUN 12 (7-18) mg/dL Creatinine 0.78 (0.55-1.02) mg/dL Estim Creat Clear Calc 92 ml/min Estimated GFR > 60 (59 - ) Glucose 92 (70-99) mg/dL Calculated Osmolality 287 (285-295) mOsm/kg Lactic Acid 1.3 (0.4-2.0) mmol/L Calcium 8.0 L (8.5-10.1) mg/dL Total Bilirubin 0.2 (0.00-1.00) mg/dL AST 18 (15-37) U/L ALT 28 (14-59) U/L Alkaline Phosphatase 75 (46-116) U/L Troponin I < 4.0 (0.00-60.4) ng/L NT-Pro-B Natriuret Pep 33 (0-125) pg/mL Total Protein 6.6 (6.4-8.2) g/dL Albumin 3.2 L (3.4-5.0) g/dL Influenza A (RT-PCR) Negative (Negative) Influenza B (RT-PCR) Negative (Negative) RSV (RT-PCR) Negative (Negative) SARS-CoV-2 RNA (RT-PCR) Negative (Negative) ECG Data EKG #1: ECG completion date: 06/02/24 ECG completion time: 19:40 Interpretation: normal sinus rhythm. Normal axis. No ST elevation noted. Discharge Plan Discharge Clinical Impression: Anxiety Pneumonia Qualifiers: Pneumonia type: due to unspecified organism Laterality: bilateral Lung location: unspecified part of lung Qualified Code(s): J18.9 - Pneumonia, unspecified organism Chest pain Qualifiers: Chest pain type: unspecified Qualified Code(s): R07.9 - Chest pain, unspecified Patient Disposition: Home, Self-Care Condition: Stable Instructions: Antibiotic Form, Chest Pain (ED), Anxiety (ED), Pneumonia (ED) Patient Language: Kinyarwanda Prescriptions: New azithromycin [Zithromax] 250 mg tablet 250 mg PO DAILY 4 Days Qty: 4 0RF Rx Instructions: start on day 2 of therapy No Action hydrochlorothiazide 25 mg tablet 25 mg PO DAILY Qty: 14 0RF Follow-up/Referrals: Domenica,RICH [place] [Primary Care Provider] - Time of Disposition: 22:36
--- NOTE | 2024-06-02 20:04 | PC.NURSE ---
Called lab and asked Ritika to come draw labs for chest pain patient.
[2024-06-02] MEDS: ASPIRIN 81 MG CHEWABLE TABLET 324 MG PO (20:05)
[2024-06-02] MEDS: ALPRAZolam (*CRX) 0.5 MG TABLET PO (20:05)
--- NOTE | 2024-06-02 20:35 | ECG_ITS ---
Test Date: 2024-06-02 19:40:24 Measurements Intervals [place] Rate: 91 P: 40 MA: 156 QRS: 29 QRSD: 97 T: 42 QT: 361 QTc: 446 Interpretive Statements SINUS RHYTHM WITH SINUS ARRHYTHMIA No previous ECG available for comparison Electronically Signed On 06-05-2024 17:41:42 CULINARY MANAGER by Raoul Martinez M.D.
[2024-06-02 20:49] LABS: Basophils Absolute Auto 0.07 K/mm3 (0.00-0.10); Basophils Percent Auto 0.7 % (0.0-1.0); Eosinophils Absolute Auto 0.29 K/mm3 (0.02-0.50); Eosinophils Percent Auto 2.9 % (1.0-6.0); Hematocrit 39.7 % (35.0-49.0); Hemoglobin 13.4 g/dL (12.0-15.0); Immature Granulocyte Absolute 0.03 K/mm3 (0.00-0.00); Immature Granulocyte Percent A 0.3 % (0.0-0.0); Lymphocytes Absolute Auto 3.19 K/mm3 (1.10-4.50); Lymphocytes Percent Auto 31.9 % (18.0-42.0); Mean Corpuscular HGB Conc 33.8 g/dL (32-36); Mean Corpuscular Hemoglobin 28.9 pg (27.0-31.0); Mean Corpuscular Volume 85.6 fL (78.0-102.0); Mean Platelet Volume 9.3 fl (9.2-11.8); Monocytes Absolute Auto 0.83 K/mm3 (0.10-0.90); Monocytes Percent Auto 8.3 % (2.0-11.0); Neutrophils Absolute Auto 5.59 K/mm3 (1.70-7.20); Neutrophils Percent Auto 55.9 % (50.0-70.0); Platelet Count Result 360 K/mm3 (150-420); Red Blood Count 4.64 M/mm3 (4.20-5.40); Red Cell Distribution Width 12.4 % (11.6-14.4)
--- NOTE | 2024-06-02 21:03 | PC.NURSE ---
Addendum entered by Jolie Elder RN 06/02/24 21:06: Pt reports that her baseline blood pressure at home is 150s over 100s. Will consult will PCP for blood pressure medicine evaluation. Original Note: ERP aware of pt's blood pressure. No new orders.
[2024-06-02 21:04] LABS: Lactic Acid Reflex 1.3 mmol/L (0.4-2.0)
[2024-06-02 21:08] LABS: D Dimer 0.19 mg/L (0.19-0.50); INR 0.9; Partial Thromboplastin Time 24.2 Sec (23.9-30.70); Prothrombin Time 9.8 Seconds (9.50-12.1)
[2024-06-02 21:09] LABS: Alanine Aminotransferase 28 U/L (14-59); Albumin Level 3.2 g/dL (3.4-5.0); Alkaline Phosphatase 75 U/L (46-116); Anion Gap 7 mmol/L (4-12); Aspartate Amino Transferase 18 U/L (15-37); Bilirubin,Total 0.2 mg/dL (0.00-1.00); Blood Urea Nitrogen 12 mg/dL (7-18); Carbon Dioxide 27 mmol/L (21-32); Chloride 105 mmol/L (98-108); Estimated CRCL calculation 92 ml/min; Estimated Glomerular Filt Rate > 60; Glucose 92 mg/dL (70-99); NT Pro B Type Natriuretic Pept 33 pg/mL (0-125); Osmolality Calculated 287 mOsm/kg (285-295); Potassium 3.7 mmol/L (3.5-5.1); Sodium 139 mmol/L (136-145); Total Protein 6.6 g/dL (6.4-8.2)
[2024-06-02 21:12] LABS: Troponin I < 4.0 ng/L (0.00-60.4)
--- NOTE | 2024-06-02 21:39 | PC.NURSE ---
COVID PCR obtained and taken to lab
[2024-06-02 22:23] LABS: SARS-CoV-2 RNA PCR Negative (Negative)
[2024-06-02 22:24] LABS: Influenza A QL RT-PCR Negative (Negative); Influenza B QL RT-PCR Negative (Negative); RSV RNA, RT-PCR Negative (Negative)
== END 2024-06-02 23:00 | disposition home or self-care (01) ==
PROVIDERS: Emergency Provider Internal Medicine Critical Care Medicine; PCP Physician Assistant
DX: J18.9 Pneumonia, unspecified organism (principal); F41.9 Anxiety disorder, unspecified; R07.9 Chest pain, unspecified; I10 Essential (primary) hypertension; E03.9 Hypothyroidism, unspecified; J45.909 Unspecified asthma, uncomplicated
CPT/HCPCS: 36415; 71045; 80053; 83605; 83880; 84484; 85025; 85380; 85610; 85730; 87637; 93005; 99284; A9270

== ENCOUNTER 2024-09-13 02:32 | Emergency (ER) | payer BC, SELFPAY ==
--- OUTSIDE RECORDS SUMMARY | 2024-09-13 02:34 | XMS_ITS | Encounter Summary ---
Author Organization [facility] Healthcare Address [address] [place] [address] Care Team Providers Care Coke Burner Name Role Phone Lorenza Garcia Unavailable Unavailable Ricardo Metzger Primary Care Provider [phone] Charlie Casillas DO Primary Care Provider [phone] Ricardo Metzger Primary Care Provider [phone] Shreyas Cevallos MD Unavailable [phone] Encounter Details Date Type Department Care Team (Late st Contact Info) Description 03/14/2020 Telephone [facility] [address] [place] [id number] Shubham Barlow, RT Social History Tobacco Use Types Packs/Day Years Used Date Smoking Tobacco: Never Smokeless Tobacco: Never Alcohol Use Standard Drinks/Week Comments No 0 (1 standard drink = 0.6 oz pur e alcohol) Comments No Sex and Gender Information Value Date Recorded Sex Assigned at Not on file 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 Gender Identity Not on file Sexual Orientation Not on file documented as of this encounter Plan of Treatment Not on file documented as of this encounter Visit Diagnoses Not on filedocumented in this encounter Care Teams Coke Burner Relationship Specialty Start Date End Date Ricardo Metzger PA [address] [place] [address] PCP - General 02/28/20 08/10/20 Charlie Casillas DO [address] [place] [address] PCP - General 08/11/20 08/18/20 Ricardo Metzger PA [address] [place] [address] PCP - General 08/19/20 Lorenza Garcia, MORTGAGE LOAN UNDERWRITER Speech Language Pathologist Speech Therapy 06/10/17 Shreyas Cevallos MD [address] [place] [address] [address]OSA [address] [address] Graffiti Cleaner Obstetrics and Gynecology 08/21/20 documented as of this encounter
--- OUTSIDE RECORDS SUMMARY | 2024-09-13 02:34 | XMS_ITS | Data Portability ---
Author Organization [facility] Aditya BALBUENA Address [address] [address] Care Team Providers Care Pathology Laboratory Aide Name Role Phone ARABELLA SAWANT OTHER TATO METZGER Primary Care Provider [phone] Assessment No assessment recorded. Plan of Treatment Reminders Order Date Submit Date Provider Last Modified By Organization Details Last Modified Time Details Appointments None record ed. Lab glucos e tolera nce and insuli n sensit ivity 2h panel, serum or plasma 2023 024 [facility], [address] [facility], [facility], [place], [address], 4 16:12:42 FSH (folli jesi-st imulat ing hormon e), serum 2023 024 [facility], [address] [facility], [facility], [place], [address], 4 16:12:43 estrad iol, serum 2023 024 [facility], [address] [facility], [address], [place], [address], 4 16:12:43 CBC 2023 024 [facility], [address], [address], [place], [address], 4 10:12:42 CMP, serum or plasma 2023 024 [facility], [address] [facility], [address], [place], [address], 4 10:12:40 lipid panel, serum 2023 024 [facility], [address] [facility], [address], [place], [address], 4 10:12:39 TSH + free T4, serum 2023 024 [facility], [address] [facility], [facility], [place], [address], 4 10:12:39 HbA1c (hemog lobin A1c), blood 2023 024 [facility] In-Office Order, Internal Use Only DO Not Attach Compendium DO Not Attach Compendium, Do Not Delete/merge, [id number] 12:47:41 Referral [facility] medici ne referr al 2023 024 gianfranco Paula, [address] [place], [address], 4 18:13:02 Procedures None record ed. Surgeries None record ed. Imaging None record ed. Medication Orders buprop ion HCl SR 150 mg tablet ,12 hr sustai arin-re lease 2024 025 [facility] #[id number], [address] [place], [address], 5 15:51:43 buspir one 10 mg tablet 2024 025 [facility] #[id number], [address] [place], [address], 5 15:51:40 Patient TargetsNo targets recorded. Patient Instructions Encounter Date Encounter Id Patient Instructions Last Modified By Organization Details Last Modified Time 05/18/2023 [id number] When You Want to Lose Weight: Care Instructions [email or web address] Not available 05/18/2023 12:13:34 09/05/2023 [id number] A healthy lifestyle: care instructions [email or web address] Not available 09/05/2023 11:48:21 hypothyroidism: care instructions jney Not available 09/05/2023 11:48:21 09/20/2023 [id number] When You Want to Lose Weight: Care Instructions [email or web address] Not available 09/20/2023 12:00:01 09/29/2023 [id number] A healthy lifestyle: care instructions jnanney Not available 09/29/2023 12:04:24 06/05/2024 [id number] A healthy lifestyle: care instructions jney Not available 06/05/2024 15:49:38 Reason for Referral Bariatric Medicine Referral for Obesity Referring Physician: Shreyas Cevallos, [employer], Encounter Date: 09/20/2023 Results Created Date Observation Date Name Description Value Unit Range Abnormal Flag Note LastModifiedBy Organization Detail LastModifiedTime 09/05/1909/06/2023 TSH+F REE T4 TSH 4.040 uIU/m L 0.450- 4.500 Not Available [facility] & [address], [address], 09/06/2023 10:12:39 09/05/1909/06/2023 TSH+F REE T4 T4,free(dire ct) 1.59 NG/dL 0.82-1 .77 Not Available [address], [address], 09/06/2023 10:12:39 09/05/1909/06/2023 LIPID PANEL cholesterol, total 172 mg/dL 100-19 9 Not Available [address], [address], 09/06/2023 10:12:39 09/05/1909/06/2023 LIPID PANEL triglyceride s 86 mg/dL 0-149 Not Available [address], [address], 09/06/2023 10:12:39 09/05/19 24 09/06/2023 LIPID PANEL HDL cholesterol 60 mg/dL >39 Not Available [address], [address], 09/06/2023 10:12:39 09/05/19 24 09/06/2023 LIPID PANEL VLDL cholesterol jass 16 mg/dL 5-40 Not Available [address], [address], 09/06/2023 10:12:39 09/05/19 24 09/06/2023 LIPID PANEL LDL chol calc (nih) 96 mg/dL 0-99 Not Available [address], [address], 09/06/2023 10:12:39 09/05/19 24 09/06/2023 COMP. METAB OLIC PANEL (14) glucose 89 mg/dL 70-99 Not Available [address], [address], 09/06/2023 10:12:40 09/05/19 24 09/06/2023 COMP. METAB OLIC PANEL (14) BUN 12 mg/dL 6-24 Not Available [address], [address], 09/06/2023 10:12:40 09/05/19 24 09/06/2023 COMP. METAB OLIC PANEL (14) creatinine 0.70 mg/dL 0.57-1 .00 Not Available [address], [address], 09/06/2023 10:12:40 09/05/19 24 09/06/2023 COMP. METAB OLIC PANEL (14) eGFR 111 mL/mi n/1.7 3 >59 Not Available [address], [address], 09/06/2023 10:12:40 09/05/19 24 09/06/2023 COMP. METAB OLIC PANEL (14) BUN/creatini ne ratio 17 9-23 Not Available [address], [address], 09/06/2023 10:12:40 09/05/19 24 09/06/2023 COMP. METAB OLIC PANEL (14) sodium 140 mmol/ L 134-14 4 Not Available [address], [address], 09/06/2023 10:12:40 09/05/19 24 09/06/2023 COMP. METAB OLIC PANEL (14) potassium 4.3 mmol/ L 3.5-5. 2 Not Available [address], [address], 09/06/2023 10:12:40 09/05/19 24 09/06/2023 COMP. METAB OLIC PANEL (14) chloride 102 mmol/ L 96-106 Not Available [address], [address], 09/06/2023 10:12:40 09/05/19 24 09/06/2023 COMP. METAB OLIC PANEL (14) carbon dioxide, total 23 mmol/ L 20-29 Not Available [address], [address], 09/06/2023 10:12:40 09/05/19 24 09/06/2023 COMP. METAB OLIC PANEL (14) calcium 9.2 mg/dL 8.7-10 .2 Not Available [address], [address], 09/06/2023 10:12:40 09/05/19 24 09/06/2023 COMP. METAB OLIC PANEL (14) protein, total 7.0 g/dL 6.0-8. 5 Not Available [address], [address], 09/06/2023 10:12:40 09/05/19 24 09/06/2023 COMP. METAB OLIC PANEL (14) albumin 4.2 g/dL 3.9-4. 9 Not Available [address], [address], 09/06/2023 10:12:40 09/05/19 24 09/06/2023 COMP. METAB OLIC PANEL (14) globulin, total 2.8 g/dL 1.5-4. 5 Not Available [address], [address], 09/06/2023 10:12:40 09/05/19 24 09/06/2023 COMP. METAB OLIC PANEL (14) A/G ratio 1.5 1.2-2. 2 Not Available [address], [address], 09/06/2023 10:12:40 09/05/19 24 09/06/2023 COMP. METAB OLIC PANEL (14) bilirubin, total 0.5 mg/dL 0.0-1. 2 Not Available [address], [address], 09/06/2023 10:12:40 09/05/19 24 09/06/2023 COMP. METAB OLIC PANEL (14) alkaline phosphatase 75 IU/L 44-121 Not Available [address], [address], 09/06/2023 10:12:40 09/05/19 24 09/06/2023 COMP. METAB OLIC PANEL (14) AST (SGOT) 17 IU/L 0-40 Not Available [address], [place], [address], 09/06/2023 10:12:40 09/05/19 24 09/06/2023 COMP. METAB OLIC PANEL (14) ALT (SGPT) 17 IU/L 0-32 Not Available [facility] & [address], [address], 09/06/2023 10:12:40 09/05/19 24 09/06/2023 CARDI OVASC ULAR REPOR T interpretati on Note Suppl ement al repor t is avail able. Not Available [address], [address], 09/06/2023 10:12:41 09/05/19 24 09/06/2023 CARDI OVASC ULAR REPOR T pdf . Not Available [facility] & [address], [address], 09/06/2023 10:12:41 09/05/19 24 09/06/2023 CBC, PLATE LET, NO DIFFE RENTI AL WBC 7.7 x10e3 /uL 3.4-10 .8 Not Available [address], [address], 09/06/2023 10:12:42 09/05/19 24 09/06/2023 CBC, PLATE LET, NO DIFFE RENTI AL RBC 5.00 x10e6 /uL 3.77-5 .28 Not Available [address], [address], 09/06/2023 10:12:42 09/05/19 24 09/06/2023 CBC, PLATE LET, NO DIFFE RENTI AL hemoglobin 14.8 g/dL 11.1-1 5.9 Not Available [address], [address], 09/06/2023 10:12:42 09/05/19 24 09/06/2023 CBC, PLATE LET, NO DIFFE RENTI AL hematocrit 44.3 % 34.0-4 6.6 Not Available [address], [address], 09/06/2023 10:12:42 09/05/19 24 09/06/2023 CBC, PLATE LET, NO DIFFE RENTI AL MCV 89 fL 79-97 Not Available [facility] & [address], [address], 09/06/2023 10:12:42 09/05/1909/06/2023 CBC, PLATE LET, NO DIFFE RENTI AL MCH 29.6 pg 26.6-3 3.0 Not Available [address], [address], 09/06/2023 10:12:42 09/05/19 24 09/06/2023 CBC, PLATE LET, NO DIFFE RENTI AL MCHC 33.4 g/dL 31.5-3 5.7 Not Available [address], [address], 09/06/2023 10:12:42 09/05/19 24 09/06/2023 CBC, PLATE LET, NO DIFFE RENTI AL RDW 12.9 % 11.7-1 5.4 Not Available [address], [address], 09/06/2023 10:12:42 09/05/19 24 09/06/2023 CBC, PLATE LET, NO DIFFE RENTI AL platelets 351 x10e3 /uL 150-45 0 Not Available [address], [address], 09/06/2023 10:12:42 09/05/19 24 09/05/2023 HbA1c (hemo globi n A1c), blood HbA1c 5.3 Not Available In-Office Order Internal Use Only DO Not Attach Compendium DO Not Attach Compendium, Do Not Delete/merge, [id number] 09/05/2023 11:48:14 09/20/19 24 09/28/2023 SPECI MEN STATU S REPOR T specimen status report TNP Comme nt: [facility] was unabl e to colle ct suffi cient speci men to perfo rm the follo wing test( s), and is provi ding the patie nt with re-co llect ion instr uctio ns. Test not perfo rmed. Attem pts to conta ct your facil ity were unsuc cessf ul. TEST: [id number] Gesta juliet l 2 hour GTT Not Available [facility] ([facility]) [address] [place], [address], 09/28/2023 16:12:41 09/20/19 24 09/29/2023 GESTA JULIET L 2 HOUR GTT glucose, fasting 79 mg/dL 70-91 Not Available [facility] ([facility]) [address] [place], [address], 09/29/2023 16:13:08 09/20/19 24 09/29/2023 GESTA JULIET L 2 HOUR GTT glucose, 1 hour 78 mg/dL 70-179 Not Available [facility] ([facility]) [address] [place], [address], 09/29/2023 16:13:08 09/20/19 24 09/29/2023 GESTA JULIET L 2 HOUR GTT glucose, 2 hour 105* mg/dL 70-152 Timed speci mens were run in seque nce as indic ated on tubes . Dr Margie Schneider an reque sted relea se of [facility] ts. Not Available [facility] ([facility]) [address] [place], [address], 09/29/2023 16:13:08 09/20/19 24 09/21/2023 FSH FSH 4.8 mIU/m L Adult Femal e Range Folli cular phase 3.5 - 12.5 Ovula tion phase 4.7 - 21.5 Lutea l phase 1.7 - 7.7 Postm enopa usal 25.8 - 134.8 Not Available [facility] ([facility]) [address] [facility], [place], [address], 09/28/2023 16:12:42 09/20/19 24 09/21/2023 ESTRA DIOL estradiol 178.0 pg/mL Adult Femal e Range Folli cular phase 12.5 - 166.0 Ovula tion phase 85.8 - 498.0 Lutea l phase 43.8 - 211.0 Postm enopa usal <6.0 - 54.7 Pregn siddhartha 1st trime ster 215.0 - >4300 .0 Tamia ECLIA metho dolog y Not Available [facility] ([facility]) [address] [facility], [place], [address], 09/28/2023 16:12:43 06/07/19 24 06/07/2023 XR, chest No observ ation record ed. [facility] [address] [place], [address], 06/07/2023 16:51:57 09/11/19 24 09/11/2023 XR, chest No observ ation record ed. [facility] [address] [place], [address], 09/12/2023 10:39:44 06/02/19 25 06/02/2024 XR, chest No observ ation record ed. [facility] [address], [place], [address], 06/04/2024 09:25:46 08/30/19 25 08/29/2024 MAMMO , diagn ostic , digit al, bilat eral No observ ation record ed. [facility] Broderick [facility] Scheduling [address] [place], [address], 08/30/2024 10:58:33 08/30/19 25 08/29/2024 , stiven manzano No observ ation record ed. [facility] Scheduling [address] [facility] [place], [address], 08/30/2024 10:58:33 Result Notes None recorded. Problems Name Problem SNOMED Code Status Onset Date Resolution Date Notes Provider Name and Address Organization Details Recorded Time Mixed anxiety and depressive disorder 359044984 Active 2018 Not Available [facility] 16:29:13 Needs influenza immunization 463501582 Active 2018 Not Available [facility] 16:29:13 Hypothyroidis m 37062716 Active Not Available [facility] 16:29:13 Gastroesophag eal reflux disease 302070643 Active Not Available [facility] 16:29:13 Hypertensive disorder 95969114 Active Not Available [facility] 16:29:13 Chronic obstructive pulmonary disease 43536893 Active Not Available [facility] 16:29:13 Restless legs 05516437 Active Not Available [facility] 16:29:13 Hernia of abdominal cavity 07690866 Active Not Available [facility] 16:29:13 Obesity 557561403 Active Not Available [facility] 16:29:13 Edema of lower extremity 653850767 Active Not Available [facility] 16:29:13 Adnexal tenderness 395533677 Active Not Available [facility] 16:29:13 Dyspareunia 67890531 Active Not Available [facility] 16:29:13 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 Procedures Surgical History Date Name Laterality Status Provider Name and Address Organization Details Recorded Time 10/10/19 Date of Last Mammogram completed Melody Sethi [facility] 09/19/2023 08:53:14 10/10/19 23 Most Recent Mammogram completed Melody Sethi MA [facility] 09/19/2023 08:52:01 05/19/20 21 TOTAL HYSTERECTOMY, LAPAROSCOPIC, WITH BILATERAL SALPINGECTOMY (SURG) completed Melody Sethi MA [facility] 09/19/2023 08:56:50 08/22/19 21 HYSTEROSCOPY, WITH ENDOMETRIAL ABLATION (SURG) completed Amelie Biggs [facility] 09/29/2020 21:13:41 05/30/19 21 cervical polypectomy completed Phylicia Rod MA [facility] 09/05/2020 10:46:19 01/14/20 20 Date of Last Pap Smear completed Melody Sethi MA [facility] 09/19/2023 08:51:03 05/30/19 03 laparotomy completed Shreyas Cevallos MD Attn: Accounting,[address] [place], [address], [facility] 04/17/2020 12:42:57 Breast Surgery completed Cheryl masters MA [facility] 10/07/2014 14:12:02 Tubal Ligation completed Cheryl masters MA [facility] 10/07/2014 14:12:02 LEEP completed Sariah Monzon Maira [facility] 01/14/2020 14:34:20 Imaging Results Imaging Date Name Status LastModified by [facility] Details LastModified Time 06/07/2023 XR, chest completed [facility] [address] [place], [address], 06/07/2023 16:51:57 09/11/2023 XR, chest completed [facility] [address], [place], [address], 09/12/2023 10:39:44 06/02/2024 XR, chest completed [facility] [address], [place], [address], 06/04/2024 09:25:46 08/29/2024 MAMMO, diagnostic, digital, bilateral [facility] [address] [facility] , [place], [address], 08/30/2024 10:58:33 08/29/2024 US, breast, bilateral [facility] [address] [facility] [place], [address], 08/30/2024 10:58:33 Procedure Notes None recorded. Medical Equipment None Reported. Allergies Allergen ID Allergen Name Allergen Category Reaction Reaction Severity Criticality Documentation Date Start Date Code Code System Note Provider Name and Address Organization Details Recorded Time 690161 Zoloft medicatio n anaphylax is severe Not available 05/11/2019 31510 RxNorm Not Available Not Available Not Available 657936 lisinopri l medicatio n anaphylax is severe Not available 05/11/2019 87228 RxNorm Not Available Not Available Not Available 021216 amlodipin e medicatio n anaphylax is severe Not available 01/14/2020 02336 RxNorm Not Available Not Available Not Available 935590 tramadol medicatio n anaphylax is severe Not available 05/06/2020 44410 RxNorm Not Available Not Available Not Available 523405 Toradol medicatio n anaphylax is severe Not available 05/06/2020 43460 RxNorm Not Available Not Available Not Available 280316 metoprolo l Not available anaphylax is moderate Not available 08/17/2022 6918 RxNorm Not Available Not Available Not Available Medications Name Sig Start Date Stop Date Status Note LastModified by Organization Details LastModified Time cyclobenzap rine 10 mg tablet Take 1 tablet 3 times a day by oral route at bedtime. active Not Available Not Available No t Available amoxicillin 500 mg capsule TAKE 1 CAPSULE BY MOUTH 3 TIMES A DAY 06/16 completed Not Available Not Available Not Available furosemide 40 mg tablet TAKE 1 TABLET BY MOUTH EVERY DAY 01/13 completed Not Available Not Available Not Available Qvar 80 mcg/actuati on Metered Aerosol oral inhaler TAKE 2 PUFFS BY MOUTH TWICE A DAY 10/18 completed Not Available Not Available Not Available bupropion HCl SR 150 mg tablet,12 hr sustained-r elease TAKE 1 TABLET TWICE A DAY BY ORAL ROUTE FOR 90 DAYS.N EEDS APPT BEFORE ANY MORE REFILLS * 2024 active Not Available Not Available Not Avai lable potassium chloride ER 10 mEq capsule,ext ended release 10/18 completed Not Available Not Available Not Available venlafaxine ER 75 mg capsule,ext ended release 24 hr TAKE 1 CAPSULE BY MOUTH EVERY DAY 05/06 completed Not Available Not Available Not Available clindamycin HCl 300 mg capsule TAKE 1 CAPSULE BY MOUTH FOUR TIMES DAILY FOR 7 DAYS 06/16 completed Not Available Not Available Not Available albuterol sulfate 2.5 mg/3 mL (0.083 %) solution for nebulizatio n INHALE 3 ML 4 TIMES A DAY BY NEBULIZAT ION ROUTE NEEDED. active Not Available Not Available No t Available azithromyci n 250 mg tablet TAKE 1 TABLET BY MOUTH EVERY DAY 06/05 completed Not Available Not Available Not Available miconazole nitrate 2 % topical cream APPLY TO THE AFFECTED AREA(S) BY TOPICAL ROUTE 2 TIMES PER DAY IN THEMORNIN G AND EVENING 10/18 completed Not Available Not Available Not Available ibuprofen 800 mg tablet TAKE 1 TABLET BY MOUTH 3 TIMES A DAY NEEDED FOR PAIN 06/16 completed Not Available Not Available Not Available benzonatate 200 mg capsule 12/02 completed Not Available Not Available Not Available clarithromy wendy 500 mg tablet 10/18 completed Not Available Not Available Not Available hydrocodone 5 mg-acetamin ophen 325 mg tablet 06/16 completed Not Available Not Available Not Available ondansetron HCl 4 mg tablet 10/18 completed Not Available Not Available Not Available famotidine 40 mg tablet 06/20 completed Not Available Not Available Not Available prednisone 20 mg tablet TAKE 1 TABLET BY MOUTH EVERY DAY 05/06 completed Not Available Not Available Not Available permethrin 5 % topical cream MASSAGE THOROUGHL Y INTO SKIN FROM HEAD TO SOLES OF FEET LEAVE ON FOR... 10/18 completed Not Available Not Available Not Available penicillin V potassium 500 mg tablet 06/20 completed Not Available Not Available Not Available amlodipine 2.5 mg tablet TAKE 1 TABLET BY MOUTH EVERY DAY 10/18 completed Not Available Not Available Not Available potassium chloride ER 10 mEq tablet,exte nded release Take 1 tablet every day by oral route. 10/18 completed Not Available Not Available Not Available amlodipine 5 mg tablet TAKE 1 TABLET BY MOUTH EVERY DAY 05/06 completed Not Available Not Available Not Available Tamiflu 75 mg capsule active Not Available Not Available N ot Available omeprazole 40 mg capsule,del ayed release Take 1 capsule every day by oral route. 08/14 completed Not Available Not Available Not Available doxycycline monohydrate 100 mg tablet 05/06 completed Not Available Not Available Not Available tramadol 50 mg tablet TAKE 1 TABLET BY MOUTH EVERY 6 HOURS NEEDED FOR PAIN 06/16 completed Not Available Not Available Not Available amoxicillin 500 mg tablet 500 MG ORALLY THREE TIMES A DAY 09/19 completed Not Available Not Available Not Available levothyroxi ne 25 mcg tablet Take 1 tablet every day by oral route. 08/28 completed Not Available Not Available Not Available hydrocortis one 2.5 % topical cream with perineal applicator APPLY SPARINGLY TO AFFECTED AREA 2 TO 4 TIMES A DAY 12/27 completed Not Available Not Available Not Available alprazolam 0.5 mg tablet TAKE 1 TABLET BY MOUTH THREE TIMES A DAY NEEDED 05/06 completed Not Available Not Available Not Available clonidine HCl 0.2 mg tablet Take 1 tablet every day by oral route at bedtime for 90 days. 09/19 completed Not Available Not Available Not Available amoxicillin 875 mg tablet TAKE 1 TABLET BY MOUTH EVERY 12 HOURS 12/02 completed Not Available Not Available Not Available alprazolam 0.25 mg tablet 09/19 completed Not Available Not Available Not Available prednisolon e acetate 1 % eye drops,suspe nsion 10/18 completed Not Available Not Available Not Available lorazepam 0.5 mg tablet active Not Available Not Available Not Available antipyrine- benzocaine 5.4 %-1.4 % ear drops active Not Available Not Available No t Available benzonatate 100 mg capsule 06/16 completed Not Available Not Available Not Available dexamethaso ne 2 mg tablet 06/16 completed Not Available Not Available Not Available levothyroxi ne 50 mcg tablet TAKE 1 TABLET BY MOUTH EVERY DAY 05/06 completed Not Available Not Available Not Available hydrocodone 7.5 mg-acetamin ophen 325 mg tablet 06/20 completed Not Available Not Available Not Available paroxetine 30 mg tablet TAKE 1 TABLET(S) EVERY DAY BY ORAL ROUTE. 10/18 completed Not Available Not Available Not Available paroxetine 20 mg tablet TAKE 1 TABLET(S) EVERY DAY BY ORAL ROUTE. 10/18 completed Not Available Not Available Not Available ferrous sulfate 325 mg (65 mg iron) tablet TAKE 1 TABLET BY MOUTH EVERY DAY (NEEDS APPT) 07/30 completed Not Available Not Available Not Available buspirone 10 mg tablet TAKE 1 TABLET BY MOUTH THREE TIMES A DAY FOR 30 DAYS 2024 active Not Available Not Available Not Avai lable lisinopril 10 mg tablet TAKE 1 TABLET BY MOUTH EVERY DAY. active Not Available Not Available No t Available Guaifenesin AC 10 mg-100 mg/5 mL oral liquid active Not Available Not Available Not Available losartan 25 mg tablet Take 1 tablet every day by oral route. 08/14 completed Not Available Not Available Not Available hydrochloro thiazide 12.5 mg capsule Take 1 capsule every day by oral route. active Not Available Not Available No t Available diclofenac potassium 50 mg tablet TALE 1 TABLET ORALLY THREE TIMES A DAY NEEDED FOR PAIN 12/27 completed Not Available Not Available Not Available omeprazole 20 mg capsule,del ayed release TAKE ONE CAPSULE BY MOUTH TWICE DAILY 08/14 completed Not Available Not Available Not Available hydrochloro thiazide 25 mg tablet TAKE 1 TABLET BY MOUTH EVERY DAY active Not Available Not Available No t Available furosemide 20 mg tablet Take 1 tablet every day by oral route. 10/18 completed Not Available Not Available Not Available norethindro ne acetate 5 mg tablet 06/16 completed Not Available Not Available Not Available metoprolol succinate ER 25 mg tablet,exte nded release 24 hr Take 1 tablet every day by oral route. 09/06 completed Not Available Not Available Not Available ibuprofen 600 mg tablet 06/16 completed Not Available Not Available Not Available methylpredn isolone 4 mg tablets in a dose pack TAKE 6 TABLETS ON DAY 1 DIRECTED ON PACKAGE AND DECREASE BY 1 TAB EACH DAY FOR A TOTAL OF 6 DAYS 09/19 completed Not Available Not Available Not Available albuterol sulfate HFA 90 mcg/actuati on aerosol inhaler INHALE 2 PUFFS EVERY 4 HOURS BY INHALATIO N ROUTE FOR 30 DAYS. NEEDS APPT BEFORE ADDITIONA L REFILLS active Not Available Not Available No t Available ondansetron 4 mg disintegrat ing tablet 08/14 completed Not Available Not Available Not Available cefdinir 300 mg capsule 06/16 completed Not Available Not Available Not Available sertraline 50 mg tablet D/C'D BY PROVIDER ON 05/07/19 active Not Available Not Available No t Available amoxicillin 875 mg-potassiu m clavulanate 125 mg tablet 06/20 completed Not Available Not Available Not Available hydroxyzine pamoate 25 mg capsule Take 1 capsule 4 times a day by oral route as needed. 08/14 completed Not Available Not Available Not Available neomycin-po lymyxin-hyd rocort 3.5 mg-10,000 unit/mL-1 % ear drops,susp SHAKE LIQUID AND INSTILL 4 DROPS TO RIGHT EAR EVERY 8 HOURS FOR 10 DAYS 06/16 completed Not Available Not Available Not Available Laxative (bisacodyl) 5 mg tablet,harriett yed release PLEASE SEE ATTACHED FOR DETAILED DIRECTION S active Not Available Not Available No t Available Denta 5000 Plus 1.1 % cream BRUSH WITH PRESCRIPT ION TOOTHPAST E AT NIGHT AFTER DINNER AND SPIT, DO NOT RINSE UNTIL MORNING 12/27 completed Not Available Not Available Not Available azithromyci n 500 mg tablet TAKE 1 TABLET BY MOUTH EVERY DAY FOR 3 DAYS 05/18 completed Not Available Not Available Not Available Ciprodex 0.3 %-0.1 % ear drops,suspe nsion INSTILL 4 DROPS INTO AFFECTED EAR(S) BY OTIC ROUTE 2 TIMES PER DAY FOR 7 DAYS 06/16 completed Not Available Not Available Not Available Prilosec OTC 20 mg tablet,harriett yed release Take 1 tablet every day by oral route. 01/13 completed Not Available Not Available Not Available Mucinex DM 30 mg-600 mg tablet,exte nded release 12 hr TAKE 1 TABLET BY MOUTH EVERY 12 HOURS NEEDED FOR COUGH 06/16 completed Not Available Not Available Not Available chlorhexidi ne gluconate 0.12 % mouthwash 08/14 completed Not Available Not Available Not Available amoxicillin 06/16 completed Not Available Not Available Not Available Symbicort 160 mcg-4.5 mcg/actuati on HFA aerosol inhaler 06/16 completed Not Available Not Available Not Available Symbicort 80 mcg-4.5 mcg/actuati on HFA aerosol inhaler INHALE 2 PUFFS TWICE A DAY BY INHALATIO N ROUTE FOR 30 DAYS. 07/30 completed Not Available Not Available Not Available cholecalcif armando (vitamin D3) 1,250 mcg (50,000 unit) capsule TAKE 1 CAPSULE BY MOUTH ONCE WEEKLY 07/30 completed Not Available Not Available Not Available omeprazole 20 mg tablet,harriett yed release TAKE 1 TABLET BY MOUTH TWICE A DAY 07/30 completed Not Available Not Available Not Available Victoza 0.6 mg/0.1 mL (18 mg/3 mL) subcutaneou s pen injector INJECT 0.6mg x 7days, 1.2 MG x 7days, 1.8 mg qd BY SUBCUTANE OUS ROUTE ONCE DAILY 09/28 completed Not Available Not Available Not Available tranexamic acid 650 mg tablet 07/30 completed Not Available Not Available Not Available Victoza 2-Jared 0.6 mg/0.1 mL (18 mg/3 mL) subcutaneou s pen injector ADMINISTE R 1.8 MG UNDER THE SKIN DAILY 09/28 completed Not Available Not Available Not Available potassium chloride ER 20 mEq tablet,exte nded release 07/30 completed Not Available Not Available Not Available Ozempic 0.25 mg or 0.5 mg (2 mg/1.5 mL) subcutaneou s pen injector Inject 0.5 mg every week by subcutane ous route. 2022 active Not Available Not Available Not Avai lable BD Elaina 2nd Gen Pen Needle 32 gauge x 12/27 completed Not Available Not Available Not Available Wegovy 0.5 mg/0.5 mL subcutaneou s pen injector Inject 0.5 mg every week by subcutane ous route. 12/27 completed Not Available Not Available Not Available Ozempic 0.25 mg or 0.5 mg (2 mg/3 mL) subcutaneou s pen injector .5 mg weekly 01/21 completed Not Available Not Available Not Available Vitals Date Recorded Body height Body mass index (BMI) Body weight Respiratory rate Oxygen saturation Oxygen saturation in Arterial blood by Pulse oximetry Heart rate Systolic blood pressure Diastolic blood pressure Provider Name and Address Organization Details Last Updated DateTime 3 157.48 cm 40 kg/m2 69735.9 4 g 16 /min 98 % 98 % 102 /min 141 mm[Hg] 101 mm[Hg] Mere Chang MA [facility] 3 11:58:07 Date Recorded Body height Body mass index (BMI) Body weight Heart rate Oxygen saturation Oxygen saturation in Arterial blood by Pulse oximetry Systolic blood pressure Diastolic blood pressure Provider Name and Address Organization Details Last Updated DateTime 4 157.48 cm 40.4 kg/m2 331689. 61 g 87 /min 98 % 98 % 115 mm[Hg] 82 mm[Hg] Mere Chang MA [facility] 4 11:28:51 Date Recorded Body height Body mass index (BMI) Body weight Systolic blood pressure Diastolic blood pressure Provider Name and Address Organization Details Last Updated DateTime 09/20/2023 157.48 cm 40.4 kg/m2 696575.9 1 g 137 mm[Hg] 97 mm[Hg] Phylicia Rod MA [facility] 4 11:22:48 Date Recorded Body height Body mass index (BMI) Body weight Oxygen saturation Oxygen saturation in Arterial blood by Pulse oximetry Heart rate Systolic blood pressure Diastolic blood pressure Provider Name and Address Organization Details Last Updated DateTime 4 157.48 cm 39.5 kg/m2 39813.9 5 g 97 % 97 % 78 /min 122 mm[Hg] 88 mm[Hg] Mere Chang MA [facility] 4 11:46:03 Date Recorded Body height Body mass index (BMI) Body weight Oxygen saturation Oxygen saturation in Arterial blood by Pulse oximetry Heart rate Systolic blood pressure Diastolic blood pressure Provider Name and Address Organization Details Last Updated DateTime 5 157.48 cm 42.1 kg/m2 494493. 25 g 99 % 99 % 107 /min 129 mm[Hg] 104 mm[Hg] Mere Chang MA [facility] 5 15:41:52 Social History Question Answer Notes LastModified by Organizat ion Details LastModified Time Tobacco Smoking Status Never Smoker Cheryl Regan [place] null, [place] - [facility] 10/07/2014 14:12:01 Do You Have An Advance Directive? No Information not available 10/07/2014 What Is Your Level Of Alcohol Consumption? None Information not available 05/06/2020 Are You Blind Or Do You Have Difficulty Seeing? No Information not available 11/19/2022 Is Blood Transfusion Acceptable In An Emergency? Yes Information not available 01/14/2020 What Is Your Level Of Caffeine Consumption? Occasional Information not available 09/23/2022 How Much Tobacco Do You Chew? None Information not available 11/07/2014 In The 14 Days Before Symptom Onset, Have You Had Close Contact With A Laboratory-confir med COVID-19 While That Case Was Ill? No Information not available 01/14/2020 In The 14 Days Before Symptom Onset, Have You Had Close Contact With A Person Who Is Under Investigation For COVID-19 While That Person Was Ill? No Information not available 01/14/2020 Have You Been To An Area Known To Be High Risk For COVID-19? No Information not available 01/14/2020 Are You Currently Employed? No Information not available 01/14/2020 Are You Deaf Or Do You Have Serious Difficulty Hearing? No Information not available 11/19/2022 What Type Of Diet Are You Following? REGULAR Strong Diet Information not available 11/19/2022 Which Illicit Or Recreational Drugs Have You Used? Denies Information not available 11/07/2014 Do You Or Have You Ever Used E-cigarettes Or Vape? Never Used Electronic Cigarettes Information not available 12/06/2019 Education 12 Information no t available 11/07/2014 What Is The Highest Grade Or Level Of School You Have Completed Or The Highest Degree You Have Received? [id number] Information not available 09/20/2023 Have There Been Any Changes To Your Family Or Social Situation? No Information no t available 09/20/2023 Are There Any Guns Present In Your Home? No Information not available 01/14/2020 Hard Of Hearing Or Deaf In One Or Both Ears? No Information not available 10/07/2014 Legally Blind In One Or Both Eyes? No Information no t available 10/07/2014 Live Alone Or With Others? With Others Information not available 01/14/2020 Marital Status Informatio n not available 01/14/2020 What Was The Date Of Your Most Recent Tobacco Screening? 06/05/2024 Information not available 06/05/2024 How Many Children Do You Have? 4 Information not available 01/14/2020 Performs Monthly Self-breast Exam? Yes Information no t available 10/07/2014 Do You Have Any Pets? No Information not available 09/20/2023 Do You Use Protection During Sex? No Information not available 01/14/2020 What Is Your Relationship Status? Information not available 06/16/2021 Do You Use Your Seat Belt Or Car Seat Routinely? Yes Information not available 09/20/2023 Seat Belts Used Routinely Yes Information not available 10/07/2014 Are You Sexually Active? Yes Information not available 01/14/2020 Smoke Alarm In Home Yes Information not available 10/07/2014 Do You Have Smoke And Carbon Monoxide Detectors In Your Home? Yes Information not available 06/16/2021 Are You Passively Exposed To Smoke? No Information no t available 06/16/2021 Do You Or Have You Ever Used Smokeless Tobacco? Never Used Smokeless Tobacco Information not available 12/06/2019 How Much Tobacco Do You Smoke? No Information not available 11/07/2014 General Stress Level High Information not available 05/06/2020 Do You Feel Stressed (tense, Restless, Nervous, Or Anxious, Or Unable To Sleep At Night)? [id number] Information not available 09/23/2022 Do You Use Any Illicit Or Recreational Drugs? No Information not available 06/16/2021 Do You Use Sunscreen Routinely? No Information not available 10/07/2014 Has Tobacco Cessation Counseling Been Provided? No Information not available 06/16/2021 On What Date Was Tobacco Cessation Counseling Provided? 06/05/2024 Information not available 06/05/2024 Do You Or Have You Ever Used Any Other Forms Of Tobacco Or Nicotine? No Information not available 06/16/2021 Sex: Female Functional Status Question Answer Note LastModified by Organization D etails LastModified Time Are you able to care for yourself? Yes Information not available 06/16/2021 What is your exercise level? Moderate Information not available 11/19/2022 Mental Status None recorded. Family History Relationship Description Onset Age of this Age Resolved Age Notes LastModified by Organization Details LastModified Time Mother Asthma [email or web address] Not available 15:38:18 Mother Depressive disorder [email or web address] Not available 2015 15:38:18 Mother Disorder of thyroid gland [email or web address] Not available 2015 15:38:18 Mother Hypertensive disorder [email or web address] Not available 2015 15:38:18 Mother Malignant tumor of ovary [email or web address] Not available 2015 15:38:18 Father Diabetes mellitus [email or web address] Not available 2015 15:38:18 Father Heart disease [email or web address] Not available 2015 15:38:18 Father Hypertensive disorder [email or web address] Not available 2015 15:38:18 Father Hypercholest erolemia [email or web address] Not available 2015 15:38:18 Maternal Grandmother Malignant tumor of breast [email or web address] Not available 2019 14:40:09 Medical History Condition Response Coronary Artery Disease N Other N Atrial Fibrillation N High Blood Pressure Y Depression Y COPD N Blood Clots N Anxiety Disorder Y Muscle, Joint, or Bone Problems N Acid Reflux (GERD) Y Cancer N Stroke N High Cholesterol N Liver Disease N Headaches N Kidney or Bladder Problems N Thyroid Problems Y GI Problems Y Skin Problems N Anemia N Heart Attack ([place]) N Diabetes N Seizures/Epilepsy N Asthma Y Allergies Y Hepatitis N Osteoporosis N Heart Failure N Gynecological History Statement/Question Response Abnormal Pap Y Date of Last Mammogram 10/09/2022 Flow Moderate Date of LMP 05/19/2021 On BCP's at Conception? N STIs/STDs Y HPV Vaccine N Duration of Flow (days) 5 Most Recent Mammogram 10/09/2022 Age at Menarche 13 Current Control Method Hysterectom y Age at First Child 16 Frequency of Cycle (Q days) 28 Sexually Active? Y Menses Monthly N Date of Last Pap Smear 01/14/2020 Sexual Problems? Y LMP Approximate Desired Control Method None Obstetrics History GPAL:G 6 P 2 2 2 4 Type Value Full Term 2 Spontaneous 1 Premature 2 Living 4 Ectopics 1 Total 6 Immunizations Vaccine Type Date Status Note Provider Nam e and Address Organization Details Recorded Time COVID-19, mRNA, LNP-S, PF, 30 mcg/0.3 mL dose 2 completed Not Available [facility] 06/07/2023 19:56:39 pneumococcal polysaccharide PPV23 2 completed Not Available [facility] 06/07/2023 19:56:39 Tdap 5 completed DOMINIK [place], [place] [facility] 03/18/2022 10:59:02 Influenza, split virus, quadrivalent, preservative 9 completed DOMINIK Resendez, [place] - [facility] 03/18/2022 10:59:02 Past Encounters Encounter ID Performer Location Encounter Start Date Encounter Closed Date Diagnosis/Indication Diagnosis SNOMED-CT Code Diagnosis ICD10 Code Diagnosis Note [id number] DOMINIK [facility] ([place]) [address] [facility] [address] [place] [address] 10/07/2014 13:45:26 10/08/2014 12:15:28 Adult health examination 249526930 Active or passive immunization 114674500 Hypothyroidism 10603826 Gastroesop hageal reflux disease 915951051 Hypertensive disorder 09853172 Laboratory test 67383992 Chronic ob structive pulmonary disease 29117639 Restless legs 30495300 Hernia of abdominal cavity 50419586 [id number] Erika Joaquin ([place] [address]) [address] [facility] [place] [address] 11/04/2014 10:34:22 11/04/2014 12:13:20 Obesity 152821058 Hypertensive disorder 91701441 Chronic ob structive pulmonary disease 64050464 Edema of l ower extremity 743625924 [id number] [facility] ([place]) [address] [place] [address] 11/07/2014 10:35:53 11/07/2014 13:01:18 Adnexal tenderness [id number] Records from [facility]. Pt. had a CT scan done 08/31/14 that was completely normal with a normal uterus and normal right ovary (pt s/p left oophorecto my). Pelvic exam was normal except for tenderness of the right adnexa. Pelvic US ordered. RTO 3 days p pelvic US for results and POC. Dyspareunia [id number] Janis Patel [facility] ([facility]) [address] [place] [address] 12/25/2014 10:33:20 12/25/2014 11:16:25 Adnexal tenderness 326634439 Pelvic US was completely normal, dwp. Pt. reassured. She has an appointmen t with GI. [id number] DOMINIK Chou ([place] [address]) [address] [facility] [place] [address] 02/18/2015 14:17:31 02/18/2015 16:33:50 Obesity 208782643 Hypertensive disorder 69723027 Gastroesop hageal reflux disease 625649468 Hernia of abdominal cavity 02005159 [id number] PAYTON Arredondo ([place] [address]) [address] [facility] [place] [address] 06/05/2015 14:38:26 06/05/2015 15:55:11 Depression screening 358049706 Z13.89 Severe depression 947378 006 F32.2 Hypertensive disorder 38 593690 I10 [id number] PAYTON Arredondo ([place] [address]) [address] [facility] [place] [address] 07/31/2015 15:54:27 07/31/2015 16:56:51 Severe depression 815740890 F32.2 Candidiasis of skin 4988 3006 B37.2 [id number] PAYTON Arredondo ([place] [address]) [address] [facility] [place] [address] 08/28/2015 15:56:44 08/28/2015 16:54:27 Severe depression 688308136 F32.2 [id number] PAYTON Arredondo ([place] [address]) [address] [facility] [place] [address] 09/05/2015 15:07:10 09/08/2015 12:38:43 Upper respiratory infection 85105870 J06.9 Acute asthma 415018096 J 45.901 [id number] PAYTON Arredondo ([place] [address]) [address] [facility] [place] [address] 12/11/2015 15:13:24 12/11/2015 16:56:43 Edema of lower extremity 386558135 R60.0 [id number] PAYTON Arredondo ([place] [address]) [address] [facility] [place] [address] 10/18/2016 14:44:07 10/19/2016 17:57:15 Chest pain 44908890 R07.9 Counseled on chest pain, testing and referral-a dvised to go to ER for chest pain with next occurence [id number] PAYTON Arredondo ([place] [address]) [address] [facility] [place] [address] 11/16/2016 10:59:40 11/16/2016 14:22:21 Hypothyroidism 34056544 E03.9 Counseled on hypothyroi d, lab work-repea t in 4-6 weeks and medication . [id number] PAYTON Arredondo ([place] [address]) [address] [facility] [place] [address] 05/17/2017 10:26:01 05/26/2017 10:33:35 Obesity 099792612 E66.9 Counseled on weight loss-encou rage heart healthy diet and increasing exercise-p ortion control, decreasing processed foods-feel low blood sugar was caused from not eating and working out without eating- t discussed advised to get moderate intake of carbs kevin from vegetables /berries, will do lab work today Body mass index 30+ - obesity 858625419 Z68.38 Hypothyroidism 72498889 E03.9 Counseled on hypothyroi d, lab work-repea t in 4-6 weeks and medication . [id number] MD Davie Sarmiento 14 IM [address] [facility] [place] [address] 06/20/2018 10:22:31 06/21/2018 10:10:11 Abdominal pain 62580492 R10.9 Counseled on abdominal pain, medication and testing to be done. Encouraged low fat diet, no alcohol or caffeinate d beverages. Must see GI-also have US if needed will refer to surgery Essential hypertension 36431708 I10 Counseled on HTN and medication . Encouraged to monitor blood pressures with goal <130/80. Encouraged healthy diet and exercise. f/u 1 month if not seen by cardiloogy Edema of l ower extremity 353458289 R60.0 will do US and to f/u with cardiology Intermitte nt palpitations 613009571 R00.2 Must f/u with cardiology [id number] PAYTON Arredondo 14 IM [address] [facility] [place] [address] 09/06/2018 11:25:09 09/07/2018 09:39:15 Anxiety 61928930 F41.9 Counseled on anxiety and medication . Encouraged counseling -pt agreeable. Advised importance of stress reduction- walking, meditation , yoga. Encouraged to seek out help from loved ones and friends to help manage home life. Self care and time to herself discussed with pt. Intermitte nt palpitations 903846266 R00.2 Call cardiology -needs to place pt on different bp med Body mass index 40+ - severely obese 283603979 Z68.41 [id number] PAYTON Arredondo 14 IM [address] [facility] [place] [address] 05/07/2019 09:14:31 05/08/2019 09:10:58 Hypothyroidism 73542033 E03.9 Counseled on hypothyroi d, lab work-will restart medication once results returned. Mixed anxi ety and depressive disorder 713076170 F41.8 Counseled on anxiety and medication -restart Zoloft. Encouraged to call for counseling , numbers given. Advised importance of stress reduction- walking, meditation , yoga. Encouraged to seek out help from loved ones and friends to help manage home life. f/u 1 month Essential hypertension 54604063 I10 Counseled on HTN and medication . Encouraged to monitor blood pressures with goal <130/80. Encouraged healthy diet and exercise. f/u 1 month if not seen by cardiology Needs infl uenza immunization 326325490 Z28.3 [id number] Danita Raman MA [facility] [address] [place] [address] 08/15/2019 13:58:09 08/15/2019 15:16:05 Acute asthma 638992124 J45.[address] imulating hormone level above reference range 054799685 R79.89 Essential hypertension 83997173 I10 [id number] Tato Metzger PA-C [facility] [address] [place] [address] 08/29/2019 10:28:21 09/10/2019 08:41:35 Generalized anxiety disorder 62890201 F41.1 [id number] Tato Metzger PA-C [facility] [address] [place] [address] 11/27/2019 10:21:21 11/27/2019 17:24:26 Edema of lower extremity 614993037 R60.0 [id number] Tato Metzger PA-C [facility] [address] [place] [address] 12/06/2019 16:45:48 12/07/2019 06:28:01 Generalized anxiety disorder 27704215 F41.1 Essential hypertension 92928272 I10 [id number] MD Davie Torres 14 OB [address] [facility] [place] [address] 01/14/2020 14:10:06 01/15/2020 14:17:09 Gynecologic examination 00861117 Z01.419 Menorrhagia 648165797 N9 2.0 Plan for polypectom y, D&C and endometria l ablation. Polyp of cervix 88276702 N84.1 Plan for polypectom y, D&C and endometria l ablation. [id number] ERIKA Garcia [address] [place] [address] 02/12/2020 09:45:28 02/13/2020 13:25:59 Generalized anxiety disorder 79423563 F41.1 Depressive disorder 3548 9007 F32.0 [id number] MD Davie Torres 14 OB [address] [facility] [address] [place] [address] 04/17/2020 11:43:16 04/18/2020 13:09:58 Polyp of cervix 44889182 N84.1 Plan for polypectom y, D&C and endometria l ablation. Uterine leiomyoma 190377 05 D25.9 Menorrhagia 051773755 N9 2.0 Plan for polypectom y, D&C and endometria l ablation. [id number] ERIKA Garcia [address] [place] [address] 05/06/2020 09:32:29 05/06/2020 17:34:27 Allergy to drug 402943081 Z88.8 [id number] MD Davie Torres 14 OB [address] [facility] [address] [place] [address] 09/05/2020 10:32:11 09/08/2020 11:41:01 Postoperative visit 339316340 Z09 Menorrhagia 746745437 N9 2.0 Plan for polypectom y, D&C and endometria l ablation. [id number] ERIKA Garcia [facility] [address] [place] [address] 06/16/2021 13:55:22 06/16/2021 14:59:52 Essential hypertension 92723729 I10 Migraine with aura 80209 06 G43.109 Family his tory of breast cancer 073126333 Z80.3 Screening for malignant neoplasm of breast 034877885 Z12.39 [id number] ERIKA Garcia [address] [place] [address] 07/30/2021 11:39:34 07/30/2021 12:46:36 Chronic obstructive pulmonary disease 73345534 J44.9 Hypertensive disorder 38 206107 I10 Mixed anxi ety and depressive disorder 034575901 F41.8 Body mass index 40+ - severely obese 903311794 Z68.42 [id number] ERIKA Garcia [facility] [address] [place] [address] 12/02/2021 14:43:52 12/02/2021 15:29:16 Pain of right knee joint 8862588954 53421 M25.831 [id number] [facility] [address] [place] [address] 08/17/2022 10:38:22 08/23/2022 12:07:56 Mixed anxiety and depressive disorder 543210044 F41.8 Essential hypertension 89076600 I10 Overweight 118932931 E66 .3 Syncope and collapse 309 525250 R55 Pain in le ft lower limb 613259407 M79.773 [id number] ERIKA Garcia [facility] [address] [place] [address] 09/23/2022 15:41:51 09/27/2022 09:07:54 Long-term drug therapy 912980739 Z79.899 Mixed anxi ety and depressive disorder 290345050 F41.8 Overweight 021593436 E66 .3 Body mass index 40+ - severely obese 609750222 Z68.42 [id number] Tato Metzger PA-C [facility] [address] [place] [address] 11/19/2022 15:05:51 11/22/2022 14:55:24 Worms in stool 094422983 R19.5 Overweight 371688737 E66 .3 [id number] Tato Metzger PA-C [facility] [address] [place] [address] 12/27/2022 10:26:34 12/27/2022 17:27:22 Essential hypertension 88473722 I10 Overweight 163496899 E66 .3 [id number] ERIKA Garcia [facility] [address] [place] [address] 01/20/2023 14:16:21 01/24/2023 11:19:09 Morbid obesity 449504786 E66.01 Overweight 370658596 E66 .3 Essential hypertension 92676889 I10 [id number] Tato Metzger PA-C [facility] [address] [place] [address] 02/16/2023 11:28:59 02/21/2023 09:56:10 Mixed anxiety and depressive disorder 278430837 F41.8 Moderate p ersistent asthma 891579940 J45.40 Overweight 060828705 E66 .3 [id number] Tato Metzger PA-C [facility] [address] [place] [address] 04/20/2023 16:37:49 04/26/2023 12:40:40 Acute bronchitis with bronchospasm 04891074 J20.8 [id number] Tato Metzger PA-C [facility] [address] [place] [address] 05/18/2023 11:44:43 05/20/2023 14:50:32 Moderate persistent asthma 060924554 J45.40 Overweight 186038929 E66 .3 [id number] Tato Metzger PA-C [facility] [address] [place] [address] 09/05/2023 11:17:04 09/16/2023 15:18:40 Fatigue 71792056 R53.83 Hypothyroidism 32856479 E00.0 Overweight 113118781 E66 .3 Polycystic ovary syndrome 704781776 E28.2 Mixed anxi ety and depressive disorder 830450841 F41.8 [id number] MD Davie Torres [address] [facility] [place] [address] 09/20/2023 11:12:15 09/21/2023 09:40:38 Menopausal symptom 91723887 E89.41 Obesity 568282195 E66.9 [id number] Tato Metzger PA-C [facility] [address] [place] [address] 09/29/2023 11:16:35 10/05/2023 13:24:03 Moderate persistent asthma 505591236 J45.40 Overweight 490423748 E66 .3 [id number] Tato Metzger PA-C [facility] [address] [place] [address] 06/05/2024 15:30:21 06/08/2024 09:36:08 Mixed anxiety and depressive disorder 221310056 F41.8 Acute bron chitis with bronchospasm [id number] J20.8 Overweight [id number] E66 .3 Generalize d anxiety disorder [id number] F41.1 Health Concerns Section Related Observation LastModified by Organization Detai ls LastModified Time None Recorded Concern Status LastModified by Organization Details LastModified Time None Recorded Advance Directives Directive N: Payers Encounter Date Sequence Insurance Name Policy Number Policy Jones Covered Member ID Jones Member ID Guarantor Name 05/18/2023 1 [place] [id number] Vlad Salazar Wade [id number] Vlad Wade 09/05/2023 1 [place] [id number] Vlad Salazar Wade [id number] Vlad Wade 09/20/2023 1 [place] [id number] Vlad Salazar Wade [id number] Vlad Olvera 09/29/2023 1 [place]) [id number] Vlad Salazar Wade [id number] Vlad Olvera 06/05/2024 1 [place] [id number] Vlad Olvera [id number] Vlad Olvera Notes Date Note Type Note Provider Name and Address Organization Details Recorded Time 05/18/2023 text/html doing good with weight loss...has lost clothes sizes...dealing with seasonal depression... Tato Metzger PA-C Attn: [address] [place], [address], [facility] 05/18/2023 12:17:10 09/05/2023 text/html sudden onset of fatigue and joint pains and salt craving... Tato Metzger PA-C Attn: [address] [place], [address], [facility] 09/05/2023 11:51:38 09/20/2023 text/html Patient presents with the complaint of inability to lose weight, increase in facial hair and generalized fatigue. She states that she has a good Shreyas Cevallos MD Attn: [address] 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 Tato Metzger PA-C Attn: [address] [place], [address], [facility] 09/29/2023 12:05:28 06/05/2024 text/html ER follow up...diagnosed with acute bronchitis/pneumon ia SOB...treated with zithromax.....also has lost several family members lately to drunk driving an overdose and a suicide... Tato Metzger PA-C Attn: [address]ing[address] [place], [address], [facility] 06/05/2024 15:52:17 OBGyn Episode Ob Episode Information Episode Created Date Number of Fetuses Patient Bloodtype Patient rh Status Prepregnancy Weight lbs Domestic Partner Domestic Partner Phone Father Name Cloth Laminating Supervisor Status 01/14/20 20 1 CLOSED Fetus Data First Name Last Name Admitted to NICU Weight (g) Sex Living Outcome Pediatric Complications Fetus ID Race Codes Race Delivery Type M [id number] Vaginal Bartolome Calculation Initial Bartolome Date Initial Exam Date Initial Exam Provider Initial Ultrasound Date Last Menstrual Period Date Ultra Sound Weeks Gestation 0 Eighteen To Twenty Week Bartolome Update Ultra Sound Date Fundal Height At Umbil Quickening Date Ultra Sound Latest Weeks Gestation Final Bartolome Confirmed By Final Bartolome Confirmed Date Final Bartolome Date Ultra Sound Latest Days Gestation 0 0 Menstrual History Last Menstrual Date Menses Monthly On Bcp Conception Prior Menses Frequency Hcg Plus Date Menarche Onset Age Delivery Information Delivery Date Delivery Type Labor Anesthesia Weeks Gestation Incision Type Labor Labor Length Hrs Delivered By Post Complications Tubal Sterilization Discharge Date Comments 2 Discharge Information Feeding Method Contraceptive Method Maternal HG B and HCT Levels Ob Episode Information Episode Created Date Number of Fetuses Patient Bloodtype Patient rh Status Prepregnancy Weight lbs Domestic Partner Domestic Partner Phone Father Name Cloth Laminating Supervisor Status 01/14/20 20 1 CLOSED Fetus Data First Name Last Name Admitted to NICU Weight (g) Sex Living Outcome Pediatric Complications Fetus ID Race Codes Race Delivery Type F [id number] Vaginal Bartolome Calculation Initial Bartolome Date Initial Exam Date Initial Exam Provider Initial Ultrasound Date Last Menstrual Period Date Ultra Sound Weeks Gestation 0 Eighteen To Twenty Week Bartolome Update Ultra Sound Date Fundal Height At Umbil Quickening Date Ultra Sound Latest Weeks Gestation Final Bartolome Confirmed By Final Bartolome Confirmed Date Final Bartolome Date Ultra Sound Latest Days Gestation 0 0 Menstrual History Last Menstrual Date Menses Monthly On Bcp Conception Prior Menses Frequency Hcg Plus Date Menarche Onset Age Delivery Information Delivery Date Delivery Type Labor Anesthesia Weeks Gestation Incision Type Labor Labor Length Hrs Delivered By Post Complications Tubal Sterilization Discharge Date Comments 1 Discharge Information Feeding Method Contraceptive Method Maternal HG B and HCT Levels Ob Episode Information Episode Created Date Number of Fetuses Patient Bloodtype Patient rh Status Prepregnancy Weight lbs Domestic Partner Domestic Partner Phone Father Name Cloth Laminating Supervisor Status 01/14/20 1 CLOSED Fetus Data First Name Last Name Admitted to NICU Weight (g) Sex Living Outcome Pediatric Complications Fetus ID Race Codes Race Delivery Type M [id number] Vaginal Bartolome Calculation Initial Bartolome Date Initial Exam Date Initial Exam Provider Initial Ultrasound Date Last Menstrual Period Date Ultra Sound Weeks Gestation 0 Eighteen To Twenty Week Bartolome Update Ultra Sound Date Fundal Height At Umbil Quickening Date Ultra Sound Latest Weeks Gestation Final Bartolome Confirmed By Final Bartolome Confirmed Date Final Bartolome Date Ultra Sound Latest Days Gestation 0 0 Menstrual History Last Menstrual Date Menses Monthly On Bcp Conception Prior Menses Frequency Hcg Plus Date Menarche Onset Age Delivery Information Delivery Date Delivery Type Labor Anesthesia Weeks Gestation Incision Type Labor Labor Length Hrs Delivered By Post Complications Tubal Sterilization Discharge Date Comments 3 Discharge Information Feeding Method Contraceptive Method Maternal HG B and HCT Levels Ob Episode Information Episode Created Date Number of Fetuses Patient Bloodtype Patient rh Status Prepregnancy Weight lbs Domestic Partner Domestic Partner Phone Father Name Cloth Laminating Supervisor Status 01/14/20 20 1 CLOSED Fetus Data First Name Last Name Admitted to NICU Weight (g) Sex Living Outcome Pediatric Complications Fetus ID Race Codes Race Delivery Type M [id number] Vaginal Bartolome Calculation Initial Bartolome Date Initial Exam Date Initial Exam Provider Initial Ultrasound Date Last Menstrual Period Date Ultra Sound Weeks Gestation 0 Eighteen To Twenty Week Bartolome Update Ultra Sound Date Fundal Height At Umbil Quickening Date Ultra Sound Latest Weeks Gestation Final Bartolome Confirmed By Final Bartolome Confirmed Date Final Bartolome Date Ultra Sound Latest Days Gestation 0 0 Menstrual History Last Menstrual Date Menses Monthly On Bcp Conception Prior Menses Frequency Hcg Plus Date Menarche Onset Age Delivery Information Delivery Date Delivery Type Labor Anesthesia Weeks Gestation Incision Type Labor Labor Length Hrs Delivered By Post Complications Tubal Sterilization Discharge Date Comments 8 Discharge Information Feeding Method Contraceptive Method Maternal HG B and HCT Levels
--- OUTSIDE RECORDS SUMMARY | 2024-09-13 02:34 | XMS_ITS | Clinical Summary ---
Author Organization [facility] Address [address] [place] [address] Phone Care Team Providers Care Electronics Instructor Name Role Phone Ricardo Metzger Primary Care Provider [phone] Allergies No known active allergies Medications predniSONE (DELTASONE) 10 MG Tablet 3 tabs X 4 days, 2 tabsX 4 days, 1 tab X 4 days, 1/2 tab X 4days Active QVAR 80 MCG/ACT Aerosol Solution take 1 Puff by inhalation 2 times daily. 5 Active amLODIPine (NORVASC) 2.5 MG Tablet Take 1 Tab by mouth daily. 6 Active hydrochlorothia zide (MICROZIDE) 12.5 MG Capsule Take 1 Cap by mouth daily. 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 Dysphagia, pharyngoesophageal phase 06/08/2017 Pachyderma of larynx 06/08/2017 Multinodular goiter (nontoxic) 06/08/2017 Functional dyspnea 06/08/2017 Laryngopharyngeal reflux Social History Tobacco Use Types Packs/Day Years Used Date Smoking Tobacco: Never Smokeless Tobacco: Never Alcohol Use Standard Drinks/Week Comments No 0 (1 standard drink = 0.6 oz pur e alcohol) Comments No Sex and Gender Information Value Date Recorded Sex Assigned at Not on file Legal Sex Female 10:21 PM CDT Gender Identity Not on file Sexual Orientation Not on file 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 Not on file Not on file Not on file Last Filed Vital Signs Vital Sign Reading Time Taken Comments Blood Pressure 128/88 06/07/2017 3:39 PM TRANSPORTATION SALES CONSULTANT Pulse 94 06/07/2017 3:39 PM TRANSPORTATION SALES CONSULTANT Temperature 36.9 C (98.5 F) 08/07/2015 5:21 PM TRANSPORTATION SALES CONSULTANT Respiratory Rate 16 06/07/2017 3:39 PM TRANSPORTATION SALES CONSULTANT Oxygen Saturation 98% 06/07/2017 3:39 PM TRANSPORTATION SALES CONSULTANT Inhaled Oxygen Concentration - - Weight 95.7 kg (211 lb) 06/07/2017 3:39 PM TRANSPORTATION SALES CONSULTANT Height 157.5 cm (5' 2 ) 06/07/2017 3:39 PM TRANSPORTATION SALES CONSULTANT Body Mass Index 38.59 06/07/2017 3:39 PM TRANSPORTATION SALES CONSULTANT Plan of Treatment Health Maintenance Due Date Last Done Comments Hepatitis C Virus (HCV) Screening 1980 TdaP Immunization 1980 Hepatitis B Immunization (1 of 3 - 19+ 3-dose series) 11/24/1999 Influenza Immunization (#1) 2024 SARS-COV-2 Immunization ( - 2023- season) 2024 Respiratory Syncytial Virus (RSV) Immunization (Adult) (1 - 1-dose 75+ series) 11/24/2055 Meningococcal Immunization (ACWY) Aged Out No longer eligible based on patient's age to complete this topic Pneumococcal Immunization Combined Aged Out No longer eligible based on patient's age to complete this topic Rotavirus Immunization Aged Out No lo nger eligible based on patient's age to complete this topic [place] [address] [place] [address] [place]ICA[place] Care Teams Electronics Instructor Relationship Specialty Start Date End Date Ricardo Metzger, STEPH [address] [place] [id number] PCP - General Physician Cutting Machine Tender 10/05/23
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
--- OUTSIDE RECORDS SUMMARY | 2024-09-13 02:34 | XMS_ITS | Referral Summary ---
Author Organization [facility] Address [address] [place] [address] Care Team Providers Care Patient Transporter Name Role Phone Lorenza Garcia Unavailable Unavailable Ricardo Metzger Primary Care Provider [phone] Shreyas Cevallos MD Unavailable [phone] Encounters Date Type Department Care Team Description 08/29/2024 7:34 AM CDT - 08/29/2024 11:59 PM CDT Hospital Encounter [address] [address] Unspecified lump in the left breast, overlapping quadrants Discharge Disposition: Discharge to home or self care 08/29/2024 7:45 AM CDT - 08/29/2024 11:59 PM CDT Hospital Encounter [address] [address] Unspecified lump in the left breast, overlapping quadrants Discharge Disposition: Discharge to home or self care from Last 3 Months Allergies Active Allergy Reactions Criticality Noted Date [...] (01/30/2021): Added automatically from request for surgery [id number] Uterine leiomyoma 01/30/2021 Overview (01/30/2021): Added automatically from request for surgery [id number] Chronic pelvic pain in female 01/30/2021 Overview (01/30/2021): Added automatically from request for surgery [id number] Morbid obesity with BMI of 45.0-49.9, adult [...] (04/17/2020): Added automatically from request for surgery [id number] Post-surgical hypothyroidism 06/14/2019 Chronic parotitis 06/08/2019 Assessment & Plan (02/27/2020 8:56 AM CDT): 64 ounces of of caffeine free and soda free - citric acid to this lemon or orange juice in the water CT Neck - call with results Consider Immunology referral based on findings Assessment & Plan (06/08/2019 3:18 PM SOCIAL MEDIA COORDINATOR): Doxycycline twice daily Have a probiotic at a different meal 4 hours in between Pepcid at bedtime May have dental work done in one week after starting antibiotics Referred otalgia, right 06/08/2019 Assessment & Plan (06/08/2019 3:19 PM SOCIAL MEDIA COORDINATOR): Doxycycline twice daily Have a probiotic at a different meal 4 hours in between Pepcid at bedtime May have dental work done in one week after starting antibiotics TMJ dysfunction discussed and Handout provided Laryngopharyngeal reflux (LPR) 06/08/2019 Assessment & Plan (06/08/2019 3:19 PM SOCIAL MEDIA COORDINATOR): Doxycycline twice daily Have a probiotic at a different meal 4 hours in between Pepcid at bedtime May have dental work done in one week after starting antibiotics Chronic idiopathic constipation 08/04/2018 Assessment & Plan (08/04/2018 3:24 PM SOCIAL MEDIA COORDINATOR): Years of abd pain and constipation with colonoscopy Dr Charito arambula 7 yrs ago and family hx of colon ca in mom, mom's brother and cousin. (?kahn). Recommended colonoscopy and then return to address sx. Constipation 08/04/2018 Overview (08/04/2018): Added automatically from request for surgery [id number] Family history of colon cancer 08/04/2018 Overview (08/04/2018): Added automatically from request for surgery [id number] Patellar tendon strain, left, initial encounter 10/14/2017 Sprain of left knee 10/14/2017 Fall, accidental, initial encounter 10/14/2017 Dysphagia, pharyngoesophageal phase 06/08/2017 Functional dyspnea 06/08/2017 Hoarseness 06/08/2017 Hyperfunctional dysphonia 06/08/2017 Multinodular goiter (nontoxic) 06/08/2017 Vocal cord polyps 06/08/2017 Social History Tobacco Use Types Packs/Day Years [...] on file Legal Sex Female 1:54 AM SOCIAL MEDIA COORDINATOR Gender Identity Not on file Sexual Orientation Not on file Last Filed Vital Signs Vital Sign Reading Time Taken Comments Blood Pressure 165/111 06/11/2021 12:55 PM SOCIAL MEDIA COORDINATOR Pulse 91 05/19/2021 3:50 PM SOCIAL MEDIA COORDINATOR Temperature 36.9 C (98.5 F) 05/19/2021 3:20 PM SOCIAL MEDIA COORDINATOR Respiratory Rate 17 05/19/2021 3:50 PM SOCIAL MEDIA COORDINATOR Oxygen Saturation 95% 05/19/2021 3:50 PM SOCIAL MEDIA COORDINATOR Inhaled Oxygen Concentration - - Weight 116.1 kg (256 lb) 06/11/2021 12:55 PM SOCIAL MEDIA COORDINATOR Height 158.8 cm (5' 2.5 ) 08/29/2024 7:53 AM CDT Body Mass Index 46.82 06/11/2021 12:55 PM SOCIAL MEDIA COORDINATOR Plan of Treatment Not on file Procedures Procedure Name Priority Date/Time Associated Diagnosis [...] no cystic or solid masses. Ricardo VILLANUEVA [facility] MAMMO PROCEDURES Final Re sult * Diagnostic [...] no cystic or solid masses. Ricardo VILLANUEVA [facility] MAMMO PROCEDURES Final Re sult * Pap and High Risk HPV, reflex to Genotyping (01/29/2021 2:08 PM CDT) CLINICAL INFORMATION: [facility] Comment:AUB LMP [facility] Comment:2020 Previous Pap [facility] Comment:INFORMATION NOT PROV IDED Prev. Bx [facility] Comment:INFORMATION NOT PROV IDED SOURCE: [facility] Comment:Cervix, Endocervix Pap, specimen adequacy [facility] Comment: Satisfactory for evaluation. Endocervical/transformation zone component present. HPV interp [facility] Comment:Negative for intraep ithelial lesion or malignancy. Search Engine Optimization Strategist [facility] Comment: DOE, CT(ASCP) CT Screening location: [address] [address] [place] Mcnair [address] Comment [facility] Comment: EXPLANATORY NOTE: The Pap is a [...] Risk E6/E7 Not Detected NOT DETECTED Addy Etix /Zuleyka SYKES Comment: Not Detected High Risk HPV types (16,18,31,33,35,39,45,51,52, 56,58,59,66,68) were not detected. Other HPV types which cause anogenital lesions may be present. The significance of the other types of HPV in malignant processes has not been established. Methodology: Real Time PCR Swab 01/29/2021 2:08 PM CDT 01/30/2021 7:03 AM CDT Yvrose Santiago MD LAB CYTOLOGY ORDERABLES Final Result [facility] [address] [address] [place] [phone] Addy Webber[facility] [address] [facility] [place] [address] from Last 3 Months or Most Recently Relevant to Health Maintenance Insurance [facility] [employer] [place] [employer] [place] Advance Directives For more information, please contact: [phone] * Full Code (Latest Code Status on File) Date Activated Date Inactivated Comments 08/10/2018 11:36 AM 08/10/2018 5:16 PM * Full Code Date Activated Date Inactivated Comments 08/10/2018 11:36 AM 08/10/2018 11:36 AM Care Teams Patient Transporter Relationship Specialty Start Date End Date Ricardo Metzger PA [address] [place] [address] PCP - General 08/19/20 Lorenza Garcia, MAJOR ACCOUNT REPRESENTATIVE Speech Language Pathologist Speech Therapy 06/10/17 Shreyas Cevallos MD [address] [place] [address] DR SHEILA Pablo [address] [address] Footwear Sales Associate Obstetrics and Gynecology 08/21/20
[2024-09-13 02:35] VITALS: BP 168/118; PULSE 99; RESP 18; TEMP 36.6; O2SAT 97
--- NOTE | 2024-09-13 02:40 | ED_ITS ---
HPI - URI/Sore Throat General Chief Complaint: Upper Respiratory Infection Stated Complaint: upper respiratory Time Seen by Provider: 09/13/24 02:40 Source: patient Mode of arrival: ambulatory Limitations: no limitations History of Present Illness HPI Narrative: 43-year-old female with a history of hypertension, hypothyroidism, asthma, anxiety presents to the ED with a 2 day history of -- sore throat. The patient has odynophagia and dysphagia. she felt her throat was closing up. Patient's stated that her voice sounded different. -- Sinus congestion -- right ear fullness. No ear pain or discharge. No fever or chills. No cough or sputum production. No shortness of breath. MD elicited complaint: sore throat Onset (ago): day(s) ( One day) Consistency: constant Able to tolerate fluids by mouth: Yes Exacerbating factors: nothing Relieving factors: nothing Associated symptoms: denies other symptoms Treatments prior to arrival: none Related Data Allergies Allergy/AdvReac Type Severity Reaction Status Date / Time amlodipine Allergy Swelling Verified 09/13/24 02:44 of Lip/Tongue/Throat lisinopril Allergy Swelling Verified 09/13/24 02:44 of Lip/Tongue/Throat metoprolol Allergy Swelling Verified 09/13/24 02:44 of Lip/Tongue/Throat Review of Systems Review of Systems: All systems reviewed & are unremarkable except as noted in HPI and below PMFSH Past Medical History Medical History Pharyngitis Hypokalemia Sialadenitis referring back to the ear nose throat at [place] that said that she had right salivary problems and recommended resection Obesity Fatigue Encounter for long-term (current) use of other medications Hypersomnolence Post-tubal ligation syndrome Anxiety HTN (hypertension) Hiatal hernia Hypothyroid Asthma Surgical History Surgical History H/O thyroidectomy H/O: hysterectomy History of repair of hiatal hernia Family History Family History Father Diabetes mellitus Hypertension Depression Anxiety Heart problem Mother Alcohol abuse Asthma Cancer Hypertension Depression Anxiety Heart problem Thyroid disorder Sibling Cancer Hypertension Anxiety Depression Social History Social History Smoking status: Never smoker Second hand tobacco smoke exposure: Yes Smoking end date: 05/30/00 Alcohol intake: never Substance use: never Spiritual care concerns: No Exam Narrative: Blood pressure is 168/118. Oxygen saturation of 97% on room air. Const: General: healthy appearing and no acute distress Nutritional Appearance: well nourished Orientation/consciousness: patient oriented x3 Limitations: no limitations HENMT: Head: normal to inspection Ears: external ears normal Face/Nose/Sinus: Normal external nose present Face and sinus: normal facial exam Mouth: Yes Normal oral and palatal mucosa present Throat: posterior oropharynx normal Eyes: Conjunctivae: conjunctivae normal Pupils: Equal, round and reactive pupils present EOM: EOMs intact bilaterally Direct Ophthalmoscopy: no photophobia Neck: Neck: normal visual inspection, no lymphadenopathy and no meningeal signs Chest: Chest palpation & inspection: normal inspection of the chest Resp: Effort & Inspection: normal respiratory effort Auscultation: clear to auscultation bilaterally Cardio: Rate: regular rate Rhythm: regular rhythm GI: GI Palp: Yes Soft to palpation Auscultation: normal bowel sounds Other: No tenderness/ rigidity / rebound. : General: Yes no CVA tenderness Back/Spine/Pelvis: Back: no CVA tenderness Skin: General skin exam: normal color Rashes: no rashes Wounds: no wounds Neuro: General: patient oriented x3, moves all extremities, no meningeal signs, no focal motor deficits and CN's II-XI intact bilaterally Cranial nerves: Yes Nystagmus not present Speech: normal speech Gait exam (Neuro): Normal gait present Extrem: General: normal to inspection and no clubbing, cyanosis or edema Psych: Mental Status: mental status grossly normal Affect: normal affect Attitude: cooperative Course Course Emergency Course: Sore throat-- tested negative for influenza/ RSV/ COVID. Vital Signs Vital signs: Vital Signs Temperature 36.6 C 09/13/24 02:35 Pulse Rate 99 09/13/24 02:35 Respiratory Rate 18 09/13/24 02:35 Blood Pressure 168/118 H 09/13/24 02:35 Pulse Oximetry 97 09/13/24 02:35 Oxygen Delivery Room Air 09/13/24 02:35 Temperature 36.6 C 09/13/24 02:35 Pulse Rate 99 04/17/25 02:35 Respiratory Rate 18 09/13/24 02:35 Blood Pressure 168/118 H 09/13/24 02:35 Pulse Oximetry 97 09/13/24 02:35 Oxygen Delivery Room Air 09/13/24 02:45 MDM - URI/Sore Throat MDM Narrative Medical decision making narrative: Upper respiratory infection Differential Diagnosis Differential diagnosis: Likely viral infection Medical Records Attestation: I reviewed the patient's medical records. Lab Data Attestation: I reviewed the patient's lab results. Labs: Lab Results 09/13/24 Range/Units 02:45 Influenza A (RT-PCR) Negative (Negative) Influenza B (RT-PCR) Negative (Negative) RSV (RT-PCR) Negative (Negative) SARS-CoV-2 RNA (RT-PCR) Negative (Negative) Group A Strep (PCR) Not detected (Negative) Discharge Plan Discharge Clinical Impression: Upper respiratory infection Patient Disposition: Home Condition: Stable Instructions: Antibiotic Form, Upper Respiratory Infection (ED) Patient Language: Kyrgyz Prescriptions: No Action hydrochlorothiazide 25 mg tablet 25 mg PO DAILY Qty: 14 0RF Follow-up/Referrals: Domenica,RICH [place] [Primary Care Provider] - Time of Disposition: 03:28
[2024-09-13 03:13] LABS: Strep Group A RT-PCR NOT DETECTED (Negative)
[2024-09-13 03:24] LABS: Influenza A QL RT-PCR Negative (Negative); Influenza B QL RT-PCR Negative (Negative); RSV RNA, RT-PCR Negative (Negative); SARS-CoV-2 RNA PCR Negative (Negative)
--- NOTE | 2024-09-13 03:27 | PC.NURSE ---
patient ambulatory to bathroom without difficulty at this time.
== END 2024-09-13 03:37 | disposition home or self-care (01) ==
PROVIDERS: Emergency Provider Internal Medicine Critical Care Medicine; PCP Physician Assistant
DX: J06.9 Acute upper respiratory infection, unspecified (principal); I10 Essential (primary) hypertension; E03.9 Hypothyroidism, unspecified; J45.909 Unspecified asthma, uncomplicated; Z20.822 Contact with and (suspected) exposure to COVID-19
CPT/HCPCS: 87637; 87651; 99283

== ENCOUNTER 2025-03-11 11:05 | Emergency (ER) | payer BC, SELFPAY ==
[2025-03-11 11:05] VITALS: BP 156/108; PULSE 70; RESP 18; TEMP 36.2; O2SAT 99
--- NOTE | 2025-03-11 11:22 | ED_ITS ---
HPI - Neck Pain/Injury General Chief Complaint: Neck Pain/Injury Stated Complaint: rt sided neck pain Time Seen by Provider: 03/11/25 11:22 Source: patient Mode of arrival: ambulatory Limitations: no limitations History of Present Illness HPI Narrative: Patient is a 44-year-old female with right neck pain for the past 4 days after a large sneeze. Her pain is radiating down her right shoulder and into the right chest slightly from the right neck. No particular injury. MD complaint: neck pain (Right side) Onset (ago): day(s) (4 days) Place: home Radiation: right shoulder and chest (Right) Severity: severe Severity scale (1-10): 8 Quality: sharp, tingling, spasming and throbbing Duration: constant Relieving factors: none Exacerbating factors: other (This started for the patient with a large sneeze 4 days ago) Context: other (Patient sneezed 4 days ago and sustained a right neck pain thereafter starting the next morning and cannot turn her head to the left) Associated symptoms: other (None) Treatments prior to arrival: acetaminophen and ibuprofen Related Data Home Medications ?Medication ?Instructions ?Recorded ?Confirmed ?Last Taken ?Type diltiazem HCl 120 mg mg PO 03/11/25 Unknown Hist ory capsule,extended release 24 hr estradiol 0.0375 mg/24 hr 03/11/25 Unknown History semiweekly transdermal patch furosemide 40 mg tablet mg 03/11/25 Unknown History magnesium oxide 400 mg (241.3 mg mg 03/11/25 Unknown History magnesium) tablet paroxetine HCl 10 mg tablet mg PO 03/11/25 Unknown Hi story potassium chloride 20 mEq meq PO 03/11/25 Unknown His tory tablet,extended release(part/cryst) quetiapine 25 mg tablet mg 03/11/25 Unknown History spironolactone 25 mg tablet mg 03/11/25 Unknown Histo ry Allergies Allergy/AdvReac Type Severity Reaction Status Date / Time amlodipine Allergy Swelling Verified 03/11/25 11:08 of Lip/Tongue/Throat lisinopril Allergy Swelling Verified 03/11/25 11:08 of Lip/Tongue/Throat metoprolol Allergy Swelling Verified 03/11/25 11:08 of Lip/Tongue/Throat Review of Systems Review of Systems: All systems reviewed & are unremarkable except as noted in HPI and below Constitutional: Constitutional: Reports no additional constitutional complaints Eyes: Eyes: Reports no additional eye complaints ENT: Reports system reviewed and no additional complaints, except as documented Cardiovascular: Cardiovascular: Reports no additional cardiovascular complaints Respiratory: Respiratory: Reports no additional respiratory complaints Gastrointestinal: Gastrointestinal: Reports no additional gastrointestinal complaints Genitourinary: Genitourinary: Reports no additional female genitourinary complaints Musculoskeletal: Musculoskeletal: Reports no additional musculoskeletal complaints Integumentary/Breasts: Skin/Breast: Reports system reviewed and no additional complaints, except as docu Neurologic: Reports system reviewed and no additional complaints, except as documented Psychiatric: Psychiatric: Reports no additional psychiatric complaints Endocrine: Endocrine: Reports no additional endocrine complaints Hematologic/Lymphatic: Hematologic/Lymphatic: Reports no additional hematologic/lymphatic complaints Allergic/Immunologic: Allergic/Immunologic: Reports no additional allergic/immunologic complaints PMFSH Past Medical History Medical History Pharyngitis Hypokalemia Sialadenitis referring back to the ear nose throat at [place] that said that she had right salivary problems and recommended resection Obesity Fatigue Encounter for long-term (current) use of other medications Hypersomnolence Post-tubal ligation syndrome Anxiety HTN (hypertension) Hiatal hernia Hypothyroid Asthma Surgical History Surgical History H/O thyroidectomy H/O: hysterectomy History of repair of hiatal hernia Family History Family History Father Diabetes mellitus Hypertension Depression Anxiety Heart problem Mother Alcohol abuse Asthma Cancer Hypertension Depression Anxiety Heart problem Thyroid disorder Sibling Cancer Hypertension Anxiety Depression Social History Social History Smoking status: Never smoker Second hand tobacco smoke exposure: Yes Smoking end date: 05/30/00 Alcohol intake: never Substance use: never Spiritual care concerns: No Exam Const: General: healthy appearing Nutritional Appearance: well nourished Orientation/consciousness: patient oriented x3 HENMT: Head: normal to inspection Ears: external ears normal Face/Nose/Sinus: Normal external nose present Eyes: Conjunctivae: conjunctivae normal Pupils: Equal, round and reactive pupils present EOM: EOMs intact bilaterally Neck: Neck: normal visual inspection and no lymphadenopathy Other: Right-side of neck is tight at the SCM and not allowing her head turn to the left due to pain and tightness with tenderness to palpation of the area and radiation occurs with palpation of the SCM Chest: Chest palpation & inspection: normal inspection of the chest Resp: Effort & Inspection: normal respiratory effort and not labored Auscultation: clear to auscultation bilaterally and no crackles Cardio: Rate: regular rate Rhythm: regular rhythm Heart sounds: no murmurs GI: Inspection: non-distended GI Palp: Yes Soft to palpation and No Tenderness to palpation present (GI) Auscultation: normal bowel sounds : General: Yes bladder normal to palpation Back/Spine/Pelvis: Back: no CVA tenderness Skin: General skin exam: normal color Rashes: no rashes Wounds: no wounds Neuro: General: patient oriented x3, moves all extremities and no meningeal signs Extrem: General: normal to inspection, no clubbing, cyanosis or edema and no pedal edema Psych: Mental Status: mental status grossly normal Affect: normal affect Attitude: cooperative Course Vital Signs Vital signs: Vital Signs Temperature 36.2 C L 03/11/25 11:05 Pulse Rate 70 03/11/25 11:05 Respiratory Rate 18 03/11/25 11:05 Blood Pressure 156/108 H 03/11/25 11:05 Pulse Oximetry 99 03/11/25 11:05 Oxygen Delivery Room Air 03/11/25 11:05 Temperature 36.2 C L 03/11/25 11:05 Pulse Rate 70 03/11/25 11:05 Respiratory Rate 18 03/11/25 11:05 Blood Pressure 156/108 H 03/11/25 11:05 Pulse Oximetry 99 03/11/25 11:05 Oxygen Delivery Room Air 03/11/25 11:05 MDM - Neck Pain/Injury MDM Narrative Medical decision making narrative: Patient is a 44-year-old female with right neck pain after a large sneeze 4 days ago. We will try prednisone with Toradol and Norflex. No radiography needed at this time. Discharge Plan Discharge Clinical Impression: Acute torticollis Patient Disposition: Home Condition: Stable Instructions: Spasmodic Torticollis (ED) Patient Language: Sammarinese Prescriptions: New carisoprodol [Soma] 350 mg tablet 350 mg PO TID PRN (Reason: muscle pain) Qty: 20 0RF No Action hydrochlorothiazide 25 mg tablet 25 mg PO DAILY Qty: 14 0RF quetiapine 25 mg tablet furosemide 40 mg tablet paroxetine HCl 10 mg tablet PO spironolactone 25 mg tablet potassium chloride 20 mEq tablet,ER particles/crystals PO magnesium oxide 400 mg (241.3 mg magnesium) tablet diltiazem HCl 120 mg capsule,extended release 24hr PO estradiol 0.0375 mg/24 hr patch semiweekly Follow-up/Referrals: Mariano,Mere Echols, CUFFER [Primary Care Provider, Unknown]
[2025-03-11] MEDS: ORPHENADRINE CITRATE 30 MG/ML 2 ML VIAL 60 MG IM (11:37)
[2025-03-11] MEDS: KETOROLAC (*BKC) 60 MG/2 ML VIAL IM (11:38)
--- NOTE | 2025-03-11 12:20 | PC.NURSE ---
PT REPORTS THE PAIN IS STARTING TO EASE UP, IS NOT GONE BUT DEFINITELY BETTER. ERP IS AWARE.
[2025-03-11 12:24] VITALS: BP 148/92; PULSE 72; RESP 18; O2SAT 98
--- OUTSIDE RECORDS SUMMARY | 2025-03-11 12:24 | XMS_ITS | Encounter Summary ---
Author Organization [facility] Healthcare Address [address] [place] [address] Care Team Providers Care Impregnator And Drier Helper Name Role Phone Lorenza Garcia Unavailable Unavailable Ricardo Metzger Primary Care Provider [phone] Charlie Casillas DO Primary Care Provider [phone] Ricardo Metzger Primary Care Provider [phone] Shreyas Cevallos MD Unavailable [phone] Mere Quintana NP Unavailable [phone] Encounter Details Date Type Department Care Team (Late st Contact Info) Description 03/14/2020 Telephone [facility] [address] [place] [address] Shubham Barlow, RT Social History Tobacco Use Types Packs/Day Years Used Date Smoking Tobacco: Never Smokeless Tobacco: Never Alcohol Use Standard Drinks/Week Comments No 0 (1 standard drink = 0.6 oz pur e alcohol) Comments No Sex and Gender Information Value Date Recorded Sex Assigned at Not on file Legal Sex Female 1:54 AM HANDS HANGER Gender Identity Not on file Sexual Orientation Not on file documented as of this encounter Plan of Treatment Not on file documented as of this encounter Visit Diagnoses Not on filedocumented in this encounter Care Teams Impregnator And Drier Helper Relationship Specialty Start Date End Date Ricardo Metzger PA [address] [place] [address] PCP - General 02/28/20 08/10/20 Charlie Casillas DO [address] [place] [address] PCP - General 08/11/20 08/18/20 Ricardo Metzger PA [address] [place] [address] PCP - General 08/19/20 Lorenza Garcia, [employer] BLOCKER Speech Language Pathologist Speech Therapy 06/10/17 Shreyas Cevallos MD [address] [place] [address] DR SHEILA Pablo [facility] [address] [place] [address] Processing Manager Obstetrics and Gynecology 08/21/20 Mere Quintana NP [address] [place] [address] DR SHEILA Pablo [facility] [address] [place] [address] Nurse Practitioner 01/11/25 documented as of this encounter
--- OUTSIDE RECORDS SUMMARY | 2025-03-11 12:24 | XMS_ITS | Clinical Summary ---
Author Organization [facility] Address [address] [place] [address] Phone Care Team Providers Care Head Sulfide Operator Name Role Phone Mere Quintana APRN, TRADE FACILITATOR Primary Care Provider Allergies Active Allergy Reactions Criticality Noted Date Comments Amlodipine Anaphylaxis High 01/14/2025 Lisinopril Anaphylaxis High 01/14/2025 Swells throat closed Medications predniSONE (DELTASONE) 10 MG Tablet 3 [...] (nontoxic) 06/08/2017 Functional dyspnea 06/08/2017 Laryngopharyngeal reflux Encounters Date Type Department Care Team Description 01/14/2025 Telephone [facility] - Family Medicine - [place] [address] [place] [phone] Danuta Oquendo, GLOBAL ENGINEERING MANAGER, TRADE FACILITATOR from Last 3 Months Immunizations Immunization Administration Dates Next Due Influenza, Injectable, Quadrivalent 05/07/2019 Pneumococcal Vaccine Adult - 23 Valent 2 TDAP Vaccine 01/04/2025,10/07/2014 Social History Tobacco Use Types Packs/Day Years [...] Comments Blood Pressure 128/88 06/07/2017 3:39 PM ORGAN PIPE FINISHER Pulse 94 06/07/2017 3:39 PM ORGAN PIPE FINISHER Temperature 36.9 C (98.5 F) 08/07/2015 5:21 PM ORGAN PIPE FINISHER Respiratory Rate 16 06/07/2017 3:39 PM ORGAN PIPE FINISHER Oxygen Saturation 98% 06/07/2017 3:39 PM ORGAN PIPE FINISHER Inhaled Oxygen Concentration - - Weight 95.7 kg (211 lb) 06/07/2017 3:39 PM ORGAN PIPE FINISHER Height 157.5 cm (5' 2) 06/07/2017 3:39 PM ORGAN PIPE FINISHER Body Mass Index 38.59 06/07/2017 3:39 PM ORGAN PIPE FINISHER Plan of Treatment Upcoming Encounters Date Type Department Care Team (Late st Contact Info) Description 03/25/2025 1:00 PM CDT Office Visit [facility] - Endocrinology [facility] [address] [place] [phone] Veena Logan MD [address] [phone] Health Maintenance Due Date Last Done Comments Hepatitis C Virus (HCV) Screening 1980 Mammogram 1980 Hepatitis B Immunization (1 of 3 - 19+ 3-dose series) 11/24/1999 Pap Smear 2001 Human Papillomavirus (HPV) Immunization (1 - 3-dose SCDM series) 11/24/2007 Cervical Cancer Screening (CCS) 2010 HPV/Cotest 2010 Discussion re Starting/Frequency of Mammograms 2020 Influenza Immunization (#1) 2025 05/07/2019 SARS-COV-2 Immunization ( season) 2025 05/14/2022, 03/12/2022, 02/19/2022 Respiratory Syncytial Virus (RSV) Immunization (Adult) (1 - 1-dose 75+ series) 11/24/2055 Pneumococcal Immunization Combined Aged Out 03/12/2022 No longer eligible based on patient's age to complete this topic DTaP/Tdap/Td Immunization Discontinued 2024, 10/07/2014 TdaP Immunization Discontinued 01/04/2025, 10/07/2014 Meningococcal Immunization (ACWY) Aged Out No longer eligible based on patient's age to complete this topic Rotavirus Immunization Aged Out No lo nger eligible based on patient's age to complete this topic Insurance [facility] Care Teams Head Sulfide Operator Relationship Specialty Start Date End Date Mere Quintana, GLOBAL ENGINEERING MANAGER, TRADE FACILITATOR PCP - General Advanced Practice Nurse 01/18/25
--- OUTSIDE RECORDS SUMMARY | 2025-03-11 12:25 | XMS_ITS | Clinical Summary ---
Author Organization [facility] Address [address] [place] [address] Care Team Providers Care Commission Sales Associate Name Role Phone Lorenza Garcia Unavailable Unavailable Ricardo Metzger Primary Care Provider [phone] Shreyas Cevallos MD Unavailable [phone] Mere Quintana NP Unavailable [phone] Allergies Active Allergy Reactions Criticality Noted Date [...] (01/30/2021): Added automatically from request for surgery [id number] Uterine leiomyoma 01/30/2021 Overview (01/30/2021): Added automatically from request for surgery [id number] Chronic pelvic pain in female 01/30/2021 Overview (01/30/2021): Added automatically from request for surgery [id number] Morbid obesity with BMI of 45.0-49.9, adult [...] (04/17/2020): Added automatically from request for surgery [id number] Post-surgical hypothyroidism 06/14/2019 Chronic parotitis 06/08/2019 Assessment & Plan (02/27/2020 8:56 AM CDT): 64 ounces of of caffeine free and soda free - citric acid to this lemon or orange juice in the water CT Neck - call with results Consider Immunology referral based on findings Assessment & Plan (06/08/2019 3:18 PM VAULT CASHIER): Doxycycline twice daily Have a probiotic at a different meal 4 hours in between Pepcid at bedtime May have dental work done in one week after starting antibiotics Referred otalgia, right 06/08/2019 Assessment & Plan (06/08/2019 3:19 PM VAULT CASHIER): Doxycycline twice daily Have a probiotic at a different meal 4 hours in between Pepcid at bedtime May have dental work done in one week after starting antibiotics TMJ dysfunction discussed and Handout provided Laryngopharyngeal reflux (LPR) 06/08/2019 Assessment & Plan (06/08/2019 3:19 PM VAULT CASHIER): Doxycycline twice daily Have a probiotic at a different meal 4 hours in between Pepcid at bedtime May have dental work done in one week after starting antibiotics Chronic idiopathic constipation 08/04/2018 Assessment & Plan (08/04/2018 3:24 PM VAULT CASHIER): Years of abd pain and constipation with colonoscopy Dr Charito arambula 7 yrs ago and family hx of colon ca in mom, mom's brother and cousin. (?kahn). Recommended colonoscopy and then return to address sx. Constipation 08/04/2018 Overview (08/04/2018): Added automatically from request for surgery [id number] Family history of colon cancer 08/04/2018 Overview (08/04/2018): Added automatically from request for surgery [id number] Patellar tendon strain, left, initial encounter 10/14/2017 Sprain of left knee 10/14/2017 Fall, accidental, initial encounter 10/14/2017 Dysphagia, pharyngoesophageal phase 06/08/2017 Functional dyspnea 06/08/2017 Hoarseness 06/08/2017 Hyperfunctional dysphonia 06/08/2017 Multinodular goiter (nontoxic) 06/08/2017 Vocal cord polyps 06/08/2017 Encounters Date Type Department Care Team Description 02/28/2025 Telephone Arrhythmia Center [address] [facility] [address] [address] Rojelio Kim MD from Last 3 Months Surgical History Surgery Date Site/Laterality Comments HERNIA REPAIR THYROID SURGERY CHOLECYSTECTOMY TUBAL LIGATION POLYPECTOMY COLONOSCOPY 05/30/2006 - 05/29/2007 polyps at [facility] BREAST SURGERY 05/30/2012 Bilateral breast reduction CERVICAL BIOPSY W/ LOOP ELECTRODE EXCISION REDUCTION MAMMAPLASTY 05/30/2010 - 05/29/2011 Bilateral HYSTERECTOMY 05/19/2021 Medical History Medical History Date Comments Asthma Hypertension Thyroid disease Colon polyp Hypothyroidism Abnormal Pap smear of cervix Thyroid ca 2018 radiation pills? Family History Medical History Relation Name Comments [...] on file Legal Sex Female 1:54 AM VAULT CASHIER Gender Identity Not on file Sexual Orientation [...] Comments Blood Pressure 165/111 06/11/2021 12:55 PM VAULT CASHIER Pulse 91 05/19/2021 3:50 PM VAULT CASHIER Temperature 36.9 C (98.5 F) 05/19/2021 3:20 PM VAULT CASHIER Respiratory Rate 17 05/19/2021 3:50 PM VAULT CASHIER Oxygen Saturation 95% 05/19/2021 3:50 PM VAULT CASHIER Inhaled Oxygen Concentration - - Weight 116.1 kg (256 lb) 06/11/2021 12:55 PM VAULT CASHIER Height 158.8 cm (5' 2.5) 08/29/2024 7:53 AM CDT Body Mass Index 46.82 06/11/2021 12:55 PM VAULT CASHIER Plan of Treatment Health Maintenance Due Date Last Done Comments Depression Screening 1980 Hepatitis C Screening 1980 Varicella Vaccines (1 of 2 - 13+ 2-dose series) 1993 Hepatitis B Screening 1998 Regular Well Visit/Exam 18-64 1998 HPV Vaccines (1 - 3-dose SCD M series) 11/24/2007 Pneumococcal vaccine <65 (2 of 2 - PCV) 03/12/2023 03/12/2022 Influenza Vaccine (#1) 2025 05/07/2019 Breast Cancer Screening-Mammogram 08/29/2025 08/29/2024, 10/09/2022, 07/27/2021 DTaP/Tdap/Td Vaccine (3 - Td or Tdap) 01/04/2035 01/04/2025, 10/07/2014 Cervical Cancer Screening Discontinued 01/29/2021 Procedures Procedure Name Priority Date/Time Associated Diagnosis Comments DIAGNOSTIC MAMMOGRAM BILATERAL W LUI Schedule Routine, Read Routine (OP Routine) 08/29/2024 7:59 AM CDT Unspecified lump in the left breast, overlapping quadrants PAP AND HIGH RISK HPV, REFLEX TO GENOTYPING Routine 01/29/2021 2:08 PM CDT Abnormal uterine bleeding (AUB) from Last 3 Months or Most Recently Relevant to Health Maintenance Results * Diagnostic Mammogram Bilateral W Lui (08/29/2024 [...] no cystic or solid masses. Ricardo VILLANUEVA IMRodrigo MAMMO PROCEDURES Final Re sult * Pap and High Risk HPV, reflex to Genotyping (01/29/2021 2:08 PM CDT) CLINICAL INFORMATION: [facility] Comment:AUB LMP [facility] Comment:2020 Previous Pap [facility] Comment:INFORMATION NOT PROV IDED Prev. Bx [facility] Comment:INFORMATION NOT PROV IDED SOURCE: [facility] Comment:Cervix, Endocervix Pap, specimen adequacy [facility] Comment: Satisfactory for evaluation. Endocervical/transformation zone component present. HPV interp [facility] Comment:Negative for intraep ithelial lesion or malignancy. Bilingual Speech Language Pathologist Que [facility] Comment: DOE, CT(ASCP) CT Screening location: [address] [address] CHRISTINE Mcnair [id number] Comment [facility] Comment: EXPLANATORY NOTE: The Pap is [...] E6/E7 Not Detected NOT DETECTED Addy Webber /Zuleyka SYKES Comment: Not Detected High Risk HPV types (16,18,31,33,35,39,45,51,52, 56,58,59,66,68) were not detected. Other HPV types which cause anogenital lesions may be present. The significance of the other types of HPV in malignant processes has not been established. Methodology: Real Time PCR Swab 01/29/2021 2:08 PM CDT 01/30/2021 7:03 AM CDT Yvrose Santiago MD LAB CYTOLOGY ORDERABLES Final Result [facility] [address] [address] CHRISTINE Rodrigez [phone] Addy Webber/[place] [address] [facility] [place] [address] from Last 3 Months or Most Recently Relevant to Health Maintenance Insurance [employer] [place] [employer] [place] [facility] [employer] [place] Advance Directives For more information, please contact: [phone] * Full Code (Latest Code Status on File) Date Activated Date Inactivated Comments 08/10/2018 11:36 AM 08/10/2018 5:16 PM * Full Code Date Activated Date Inactivated Comments 08/10/2018 11:36 AM 08/10/2018 11:36 AM Care Teams Commission Sales Associate Relationship Specialty Start Date End Date Ricardo Metzger PA [address] [place] [address] PCP - General 08/19/20 Lorenza Garcia, SELF PAY COLLECTOR Speech Language Pathologist Speech Therapy 06/10/17 Shreyas Cevallos MD [address] [place] [address] DR SHEILA Palbo [address] [place] [address] Publications Writer Obstetrics and Gynecology 08/21/20 Mere Quintana NP [address] [place] [address] DR SHEILA Pablo [address] [place] [address] Nurse Practitioner 01/11/25
--- OUTSIDE RECORDS SUMMARY | 2025-03-11 12:55 | XMS_ITS | Clinical Summary ---
Author Organization [facility] Address [address] [place] [address] Phone Care Team Providers Care Social Human Services Assistants Name Role Phone Mere Quintana APRN, BLEACHER PULP Primary Care Provider Allergies Active Allergy Reactions [...] Family Medicine - [facility] [address] [place] [phone] Danuta Oquendo, TITLE CLERK AUTOMOBILE, BLEACHER PULP from Last 3 Months Immunizations Immunization Administration [...] Comments Blood Pressure 128/88 06/07/2017 3:39 PM CHILD CARE TEACHER Pulse 94 06/07/2017 3:39 PM CHILD CARE TEACHER Temperature 36.9 C (98.5 F) 08/07/2015 5:21 PM CHILD CARE TEACHER Respiratory Rate 16 06/07/2017 3:39 PM CHILD CARE TEACHER Oxygen Saturation 98% 06/07/2017 3:39 PM CHILD CARE TEACHER Inhaled Oxygen Concentration - - Weight 95.7 kg (211 lb) 06/07/2017 3:39 PM CHILD CARE TEACHER Height 157.5 cm (5' 2) 06/07/2017 3:39 PM CHILD CARE TEACHER Body Mass Index 38.59 06/07/2017 3:39 PM CHILD CARE TEACHER Plan of Treatment Upcoming Encounters Date Type Department Care Team (Late st Contact Info) Description 03/25/2025 1:00 PM CDT Office Visit [facility] - Endocrinology [facility] [address] [place] [phone] Veena Logan MD [address] [phone] Health Maintenance Due Date Last Done Comments [...] patient's age to complete this topic Insurance [facility] Care Teams Social Human Services Assistants Relationship Specialty Start Date End Date Mere Quintana, TITLE CLERK AUTOMOBILE, BLEACHER PULP PCP - General Advanced Practice Nurse 01/18/25
--- OUTSIDE RECORDS SUMMARY | 2025-03-11 12:55 | XMS_ITS | Clinical Summary ---
Author Organization [facility] Address [address] [place] [address] Care Team Providers Care Clerical Secretary Name Role Phone Lorenza Garcia Unavailable Unavailable Ricardo Metzger Primary Care Provider [phone] Shreyas Cevallos MD Unavailable [phone] Mere Quintana NP Unavailable [phone] Allergies Active Allergy Reactions Criticality Noted Date [...] (01/30/2021): Added automatically from request for surgery [id number] Uterine leiomyoma 01/30/2021 Overview (01/30/2021): Added automatically from request for surgery [id number] Chronic pelvic pain in female 01/30/2021 Overview (01/30/2021): Added automatically from request for surgery [id number] Morbid obesity with BMI of 45.0-49.9, adult [...] (04/17/2020): Added automatically from request for surgery [id number] Post-surgical hypothyroidism 06/14/2019 Chronic parotitis 06/08/2019 Assessment & Plan (02/27/2020 8:56 AM CDT): 64 ounces of of caffeine free and soda free - citric acid to this lemon or orange juice in the water CT Neck - call with results Consider Immunology referral based on findings Assessment & Plan (06/08/2019 3:18 PM CANVAS GOODS MAKER): Doxycycline twice daily Have a probiotic at a different meal 4 hours in between Pepcid at bedtime May have dental work done in one week after starting antibiotics Referred otalgia, right 06/08/2019 Assessment & Plan (06/08/2019 3:19 PM CANVAS GOODS MAKER): Doxycycline twice daily Have a probiotic at a different meal 4 hours in between Pepcid at bedtime May have dental work done in one week after starting antibiotics TMJ dysfunction discussed and Handout provided Laryngopharyngeal reflux (LPR) 06/08/2019 Assessment & Plan (06/08/2019 3:19 PM CANVAS GOODS MAKER): Doxycycline twice daily Have a probiotic at a different meal 4 hours in between Pepcid at bedtime May have dental work done in one week after starting antibiotics Chronic idiopathic constipation 08/04/2018 Assessment & Plan (08/04/2018 3:24 PM CANVAS GOODS MAKER): Years of abd pain and constipation with colonoscopy Dr Charito arambula 7 yrs ago and family hx of colon ca in mom, mom's brother and cousin. (?kahn). Recommended colonoscopy and then return to address sx. Constipation 08/04/2018 Overview (08/04/2018): Added automatically from request for surgery [id number] Family history of colon cancer 08/04/2018 Overview (08/04/2018): Added automatically from request for surgery [id number] Patellar tendon strain, left, initial encounter 10/14/2017 Sprain of left knee 10/14/2017 Fall, accidental, initial encounter 10/14/2017 Dysphagia, pharyngoesophageal phase 06/08/2017 Functional dyspnea 06/08/2017 Hoarseness 06/08/2017 Hyperfunctional dysphonia 06/08/2017 Multinodular goiter (nontoxic) 06/08/2017 Vocal cord polyps 06/08/2017 Encounters Date Type Department Care Team Description 02/28/2025 Telephone Arrhythmia Center [address] [facility] [address] [address] Rojelio Kim MD from Last 3 Months Surgical History Surgery Date Site/Laterality Comments HERNIA REPAIR THYROID SURGERY CHOLECYSTECTOMY TUBAL LIGATION POLYPECTOMY COLONOSCOPY 05/30/2006 - 05/29/2007 polyps at [facility] BREAST SURGERY 05/30/2012 Bilateral breast reduction CERVICAL [...] on file Legal Sex Female 1:54 AM CANVAS GOODS MAKER Gender Identity Not on file Sexual Orientation [...] Comments Blood Pressure 165/111 06/11/2021 12:55 PM CANVAS GOODS MAKER Pulse 91 05/19/2021 3:50 PM CANVAS GOODS MAKER Temperature 36.9 C (98.5 F) 05/19/2021 3:20 PM CANVAS GOODS MAKER Respiratory Rate 17 05/19/2021 3:50 PM CANVAS GOODS MAKER Oxygen Saturation 95% 05/19/2021 3:50 PM CANVAS GOODS MAKER Inhaled Oxygen Concentration - - Weight 116.1 kg (256 lb) 06/11/2021 12:55 PM CANVAS GOODS MAKER Height 158.8 cm (5' 2.5) 08/29/2024 7:53 AM CDT Body Mass Index 46.82 06/11/2021 12:55 PM CANVAS GOODS MAKER Plan of Treatment Health Maintenance Due Date [...] Genotyping (01/29/2021 2:08 PM CDT) CLINICAL INFORMATION: [facility] Comment:AUB LMP [facility] Comment:2020 Previous Pap [facility] Comment:INFORMATION NOT PROV IDED Prev. Bx [facility] Comment:INFORMATION NOT PROV IDED SOURCE: [facility] Comment:Cervix, Endocervix Pap, specimen adequacy [facility] Comment: Satisfactory for evaluation. Endocervical/transformation zone component present. HPV interp [facility] Comment:Negative for intraep ithelial lesion or malignancy. Community Board Member Que [facility] Comment: DOE, CT(ASCP) CT Screening location: [address] [address] CHRISTINE Mcnair [address] Comment [facility] Jam[facility] Comment: EXPLANATORY NOTE: The Pap is a [...] Santiago MD LAB CYTOLOGY ORDERABLES Final Result [facility] [address] [address]RISTINE Rodrigez [phone] Addy Webber/[place] [address] [place] [address] from Last 3 Months or Most Recently Relevant to Health Maintenance [place] [employer] [place] [employer] [place] [facility] [employer] [place] Advance Directives For more information, please contact: [phone] * Full Code (Latest Code Status on File) Date Activated Date Inactivated Comments 08/10/2018 11:36 AM 08/10/2018 5:16 PM * Full Code Date Activated Date Inactivated Comments 08/10/2018 11:36 AM 08/10/2018 11:36 AM Care Teams Clerical Secretary Relationship Specialty Start Date End Date Ricardo Metzger PA [address] [place] [address] PCP - General 08/19/20 Lorenza Garcia, OIL FIELD PIPELINE SUPERVISOR Speech Language Pathologist Speech Therapy 06/10/17 Shreyas Cevallos MD [address] [place] [address] [address] SHEILA Pablo [address] [place] [address] Paramedic Rn Obstetrics and Gynecology 08/21/20 Mere Quintana NP [address] [place] [address] DR SHEILA Pablo [address] [place] [address] Nurse Practitioner 01/11/25
--- OUTSIDE RECORDS SUMMARY | 2025-03-11 12:55 | XMS_ITS | Encounter Summary ---
Author Organization [facility] Address [address] [place] [address] Care Team Providers Care Overlock Elastic Attacher Name Role Phone Lorenza Garcia Unavailable Unavailable Ricardo Metzger Primary Care Provider [phone] Charlie Casillas DO Primary Care Provider [phone] Ricardo Metzger Primary Care Provider [phone] Shreyas Cevallos MD Unavailable [phone] Mere Quintana NP Unavailable [phone] Encounter Details Date Type Department Care Team (Late st Contact Info) Description 03/14/2020 Telephone [facility] [address] [place] [address] Shubham Barlow, RT Social History Tobacco Use Types Packs/Day Years Used Date Smoking Tobacco: Never Smokeless Tobacco: Never Alcohol Use Standard Drinks/Week Comments No 0 (1 standard drink = 0.6 oz pur e alcohol) Comments No Sex and Gender Information Value Date Recorded Sex Assigned at Not on file Legal Sex Female 1:54 AM ROOFING SUPERVISOR Gender Identity Not on file Sexual Orientation Not on file documented as of this encounter Plan of Treatment Not on file documented as of this encounter Visit Diagnoses Not on filedocumented in this encounter Care Teams Overlock Elastic Attacher Relationship Specialty Start Date End Date Ricardo Metzger PA [address] [place] [address] PCP - General 02/28/20 08/10/20 Charlie Casillas DO [address] [place] [address] PCP - General 08/11/20 08/18/20 Ricardo Metzger PA [address] [place] [address] PCP - General 08/19/20 Lorenza Garcia, RENEWABLE ENERGY DIVISION MANAGER Speech Language Pathologist Speech Therapy 06/10/17 Shreyas Cevallos MD [address] [place] [address] DR SHEILA Pablo [facility] [address] [place] [address] Pipeline Executive Obstetrics and Gynecology 08/21/20 Mere Quintana NP [address] [place] [address] DR SHEILA Pablo [facility] [address] [place] [address] Nurse Practitioner 01/11/25 documented as of this encounter
== END 2025-03-11 12:24 | disposition home or self-care (01) ==
PROVIDERS: Emergency Provider Emergency Medicine; PCP Nurse Practitioner Family
DX: M43.6 Torticollis (principal); I10 Essential (primary) hypertension; E03.9 Hypothyroidism, unspecified; J45.909 Unspecified asthma, uncomplicated; Z79.899 Other long term (current) drug therapy
CPT/HCPCS: 96372; 99284; J1885; J2360; J7512